=== PATIENT | male | born 1955 | race Caucasian/White ===

== ENCOUNTER 2023-01-09 04:33 | Inpatient (IN) | payer MEDICARE ==
[~2023-01-09] VITALS: Ht 170.2 cm; Wt 56.4 kg
[2023-01-09] VITALS (14 sets, daily range): BP systolic 94–152; BP diastolic 48–91
--- NOTE | 2023-01-09 04:48 | NUR ---
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 ON SCENE SATS 97% ON 3LPM BASELINE FOR HX OF COPD WITH EXPIRITORY WHEEZES BILAT. GIVEN ALBUTEROL TX EN ROUTE WITH POOR PT COMPLIENCE WITH MEDICATION INHALATION. PT AWAKE AND ANSWERING QUESTIONS AT TRIAGE. WHILE BEING TRANSPORTED TO ED ROOM, PT BECAME INCREASINGLY SOMNOLENT WITH DECREASED RESPIRITORY EFFORT. PLACED ON MONITOR AND RT AND MD MADE AWARE.
--- NOTE | 2023-01-09 04:50 | NUR ---
IV MI INSERTED ON LEFT AC G20. BLOOD DRAWN AND SENT TO LAB
--- NOTE | 2023-01-09 04:50 | NUR ---
ATTACHED TO MONITOR. ATTACHED TO BIPAP MACHINE BY PARAMEDICS
--- NOTE | 2023-01-09 04:51 | NUR ---
EKG DONE AT BEDSIDE
--- NOTE | 2023-01-09 04:57 | NUR ---
IV CANNULA #2 INSERTED ON LRIGHT WRIST G20. BLOOD DRAWN AND SENT TO LAB
--- NOTE | 2023-01-09 04:58 | NUR ---
ATTACHED TO BIPAP WITH SETTINGS OF 23/5, RATE 14, SATS OF 80% Addendum: 01/09/23 at 0619 by NEO ATTACHED TO BIPAP WITH SETTINGS OF 23/5, RATE 18, SATS OF 80%
[2023-01-09] MEDS ORDERED: NITROGLYCERIN 0.4 MG/TAB BOTTLE SL ONE (05:00)
[2023-01-09] MEDS ORDERED: FUROSEMIDE 40 MG/4 ML VIAL IV ONE (05:00)
--- NOTE | 2023-01-09 05:01 | NUR ---
RT NOTE LATE ENTRY RT called to bedside. Pt rec'd on CPAP mask @ 15LPM. Pt showed tachypnea, tachycardia, and Shortness of Breath. Pt placed on Bipap on noted settings per MD orders. Alarms are set and audible. ambu bag at bedside. Bipap plugged into red outlet. Addendum: 01/09/23 at 0536 by SARA ENRIQUEZ RT Amended: Links added.
[2023-01-09] MEDS ORDERED: FUROSEMIDE 40 MG/4 ML VIAL ONE (05:03)
[2023-01-09] MEDS ORDERED: NITROGLYCERIN 0.4 MG/TAB BOTTLE ONE (05:03)
[2023-01-09 05:08] LABS: ABG BASE EXCESS -8.7 mmol/L; ABG PCO2 41.6 mmHg (35.0-45.0); ABG PH 7.253 (7.350-7.450); ABG PO2 265.3 mmHg (75.0-100.0); COHb 0.7 % (0.5-1.5); MetHb 0.2 % (0.0-1.5); O2Hb 98.1 % (94.0-97.0); SITE, ABG Right Radial; VENT MODE, BG ST 23/5 R18 80%
--- NOTE | 2023-01-09 05:10 | NUR ---
RT NOTE LATE ENTRY ABG TAKEN AND RESULTS REPORTED TO MD. FIO2 TITRATED TO 50% PER MD ORDERS. Addendum: 01/09/23 at 0536 by SARA ENRIQUEZ RT Amended: Links added.
[2023-01-09] MEDS ORDERED: methylPREDNISolone SOD SUCC 125 MG/2ML VIAL ONE (05:18)
--- NOTE | 2023-01-09 05:18 | NUR ---
IFC F16 INSERTED. URINE SPECIMEN SENT TO LAB
[2023-01-09 05:24] LABS: BASOPHILS # (AUTO) 0.2 K/uL (0.0-0.2); BASOPHILS % (AUTO) 0.9 % (0.0-2.0); EOSINOPHILS % (AUTO) 0.9 % (0.0-6.0); HEMATOCRIT 36 % (39-51); HEMOGLOBIN 10.8 g/dL (13.5-17.5); LYMPHOCYTES # (AUTO) 9.4 K/uL (0.8-4.8); LYMPHOCYTES % (AUTO) 43.2 % (20.0-44.0); MEAN CORPUSCULAR HGB CONC 30 g/dl (31.0-36.0); MEAN CORPUSCULAR VOLUME 92 fL (80-96); MONOCYTES # (AUTO) 1.8 K/uL (0.1-1.30); MONOCYTES % (AUTO) 8.3 % (2.0-12.0); NEUTROPHILS # (AUTO) 10.1 K/uL (1.8-8.9); NEUTROPHILS % (AUTO) 46.7 % (43.0-81.0); PLATELET COUNT (AUTO) 545 K/uL (150-450); RED BLOOD CELL COUNT(AUTO) 3.95 MIL/uL (4.5-6.0); WHITE BLOOD COUNT (AUTO) 21.7 K/uL (4.3-11.0)
--- NOTE | 2023-01-09 05:26 | NUR ---
COVID SWAB DONE AND SENT TO LAB
[2023-01-09] MEDS ORDERED: methylPREDNISolone SOD SUCC 125 MG/2ML VIAL IV ONE (05:30)
[2023-01-09 05:32] LABS: CARBON DIOXIDE 23 mmol/L (21-32); CHLORIDE 101 mmol/L (98-107); CREATININE 6.2 mg/dL (0.6-1.3); GLUCOSE 112 mg/dL (74-106); POTASSIUM 5.6 mmol/L (3.5-5.1); SODIUM SERUM 138 mmol/L (136-145); UREA NITROGEN, BLOOD 41 mg/dL (7-18)
--- NOTE | 2023-01-09 05:32 | NUR ---
RECEIVER BULK SYSTEM AT BEDSIDE
[2023-01-09 05:45] LABS: ALANINE AMINOTRANSFERASE < 6 U/L (12-78); ALBUMIN 3.6 g/dL (3.4-5.0); ALKALINE PHOSPHATASE 61 U/L (46-116); ASPARTATE AMINOTRANSFERASE 14 U/L (15-37); BILIRUBIN,DIRECT 0.2 mg/dL (0.0-0.2); BILIRUBIN,TOTAL 0.7 mg/dL (0.2-1.0); TOTAL PROTEIN, SERUM 8.2 g/dL (6.4-8.2)
[2023-01-09 05:50] LABS: BILIRUBIN,URINE NEGATIVE (NEGATIVE); COLOR,URINE YELLOW (YELLOW); LEUKOCYTE ESTERASE ,URINE NEGATIVE (NEGATIVE); NITRITE, URINE NEGATIVE (NEGATIVE); PH,URINE 8.5 (5.0-8.0); PROTEIN,URINE 2+ mg/dl (NEGATIVE); UGLUCOSE 1+ mg/dL (NEGATIVE); UROBILINOGEN,URINE 0.2 EU/dL (0.2)
--- NOTE | 2023-01-09 05:55 | NUR ---
LACTIC 5.9 MD MADE AWARE
[2023-01-09 05:59] LABS: BACTERIA,URINE Moderate /HPF (None Seen); HYALINE CASTS, URINE Few /LPF (None Seen); SQUAMOUS EPITHELIAL CELL,UR Many /HPF (None Seen)
--- NOTE | 2023-01-09 06:03 | NUR ---
PATIENT PASSED STOOL. PERINEAL CARE DONE. ADULT DIAPER PUT IN PLACE
--- NOTE | 2023-01-09 06:14 | NUR ---
PT'S BROTHER IS UPDATED AND AWARE THAT HE GOING TO BE ADMITTED
[2023-01-09] MEDS ORDERED: IPRATROPIUM NEB FS 0.5 MG/2.5 ML AMPUL.NEB NEB PRN (06:30)
[2023-01-09] MEDS ORDERED: MAGNESIUM HYDROXIDE 30 ML UDC PO PRN (06:30)
[2023-01-09] MEDS ORDERED: MORPHINE SULFATE INJ 2 MG/ML DISP.SYRIN IV PRN (06:30)
[2023-01-09] MEDS ORDERED: ACETAMINOPHEN 325 MG TABLET PO PRN (06:30)
[2023-01-09] MEDS ORDERED: MAG HYDROX/AL HYDROX/SIMETH 30 ML UDC PO PRN (06:30)
[2023-01-09] MEDS ORDERED: Z GUARD REMEDY 4 OZ OINT TP PRN (06:30)
[2023-01-09] MEDS ORDERED: ALBUTEROL FS 2.5 MG/3 ML VIAL.NEB NEB PRN (06:30)
[2023-01-09] MEDS ORDERED: ONDANSETRON HCL/PF 4 MG/2 ML VIAL IVP PRN (06:30)
[2023-01-09] MEDS ORDERED: HYDROCODONE/APAP 5/325MG TABLET PO PRN (06:30)
[2023-01-09 06:50] LABS: ABG BASE EXCESS -3.4 mmol/L; ABG PCO2 34.4 mmHg (35.0-45.0); ABG PO2 119.5 mmHg (75.0-100.0); COHb 0.7 % (0.5-1.5); MetHb 0.1 % (0.0-1.5); O2Hb 96.9 % (94.0-97.0); SITE, ABG Right Brachial; VENT MODE, BG Bipap 23/5 RR18 50%
--- NOTE | 2023-01-09 07:01 | NUR ---
RT SHIFTED PATIENT TO NASAL CANNULA AT 3LPM FOR TRIAL. HR 101BPM, SATS 100%, BP 122/88mmHg. PATIENT DOESN'T SHOW IN DISTRESS.
[2023-01-09] MEDS ORDERED: INSULIN REGULAR, HUMAN 100 UNIT/ML 10 ML VIAL IV ONE (07:30)
[2023-01-09] MEDS ORDERED: DEXTROSE 50%-WATER 50 ML DISP.SYRIN IVP ONE (07:30)
--- NOTE | 2023-01-09 08:00 | NUR ---
RETURN TO CT VIA [facility]
[2023-01-09] MEDS ORDERED: INSULIN REGULAR, HUMAN 100 UNIT/ML 10 ML VIAL ONE (08:06)
[2023-01-09] MEDS ORDERED: MORPHINE SULFATE INJ 4 MG/ML DISP.SYRIN ONE (08:06)
[2023-01-09] MEDS ORDERED: DEXTROSE 50%-WATER 50 ML DISP.SYRIN ONE (08:06)
--- NOTE | 2023-01-09 08:07 | NUR ---
BED 258
[2023-01-09] MEDS: MORPHINE SULFATE INJ 2 MG/ML DISP.SYRIN IV ONE ×2 (08:25→08:28)
--- NOTE | 2023-01-09 08:25 | NUR ---
phleb at bedside for lac acid reflex draw
--- NOTE | 2023-01-09 08:30 | NUR ---
ATTEMPTED TO GIVE REPORT. RN IS "BUSY WITH ANOTHER PT". WAITING FOR CALL BACK.
--- NOTE | 2023-01-09 08:32 | NUR ---
natural gas trader at bedside for ultrasound
--- NOTE | 2023-01-09 08:49 | NUR ---
REPORT GIVEN TO CITLALLI FOR ROSANNE
--- NOTE | 2023-01-09 09:17 | NUR ---
MEDRECON NURSE AT BEDSIDE
--- NOTE | 2023-01-09 09:26 | NUR ---
PATIENT TRANSFERRED TO ICU AWAKE AND STABLE VITALS ON ACLS PROTOCOL. ACCOMPANIED BY RN AND REHAB/PRE VOCATIONAL COUNSELOR.
[2023-01-09] MEDS ORDERED: SEVE800T7 PO (09:28)
[2023-01-09] MEDS ORDERED: OMEP40CA21 PO (09:28)
[2023-01-09] MEDS ORDERED: COLE1TAB2 PO (09:28)
[2023-01-09] MEDS ORDERED: PRED5TAB PO (09:28)
[2023-01-09] MEDS ORDERED: PROP40TA7 PO (09:28)
[2023-01-09] MEDS ORDERED: LEVO25TA82 PO (09:28)
[2023-01-09] MEDS ORDERED: SODI650T PO (09:28)
[2023-01-09] MEDS ORDERED: ALEN70TA80 PO (09:28)
[2023-01-09] MEDS ORDERED: SIRO1TAB6 PO (09:28)
[2023-01-09] MEDS ORDERED: TIOT4MIS5 INH (09:28)
[2023-01-09] MEDS ORDERED: PRAV80TA21 PO (09:28)
[2023-01-09] MEDS ORDERED: GEMF600T90 PO (09:28)
[2023-01-09] MEDS ORDERED: AMLO-213 PO (09:28)
[2023-01-09] MEDS ORDERED: SERT50TA12 PO (09:28)
--- NOTE | 2023-01-09 09:45 | NUR ---
PT ARRIVED IN ICU AT 0929. PT IS ALERT OX4, VERY COOPERATIVE. PT HAD A TIPTON CATHETER BUT COMPLAINED OF BURNING AND ASKED IF IT CAN BE REMOVED. PT STATES HE HAS NO PROBLEM USING A URINAL. TIPTON CATHETER REMOVED AT THIS TIME WITHOUT DIFFICULTY. PT ON 3L NASAL CANNULA. NO SOB NOTED. PT SETTLED IN ROOM, CALL LIGHT GIVEN TO PATIENT, PT PUT ON MONITOR.. PT CHECKED ON HOURLY AND PRN BY NURSING STAFF.
[2023-01-09 10:26] LABS: CALCIUM, SERUM 8.6 mg/dL (8.5-10.1); CREATININE 6.7 mg/dL (0.6-1.3)
[2023-01-09] MEDS: methylPREDNISolone SOD SUCC 40 MG/ML VIAL IV SCH ×2 (12:45→21:21)
[2023-01-09] MEDS: PANTOPRAZOLE 40 MG TABLET.DR PO SCH (12:45)
[2023-01-09] MEDS: HEPARIN SODIUM, PORCINE 5000 UNITS/1 ML VIAL SQ SCH ×2 (12:46→21:23)
--- NOTE | 2023-01-09 13:25 | NUR ---
HE STARTED AT THIS TIME. ANY MEDS DUE FROM NOW TO AFTER HD WILL BE HELD TILL AFTER HD Addendum: 01/09/23 at 1927 by SHLOMO LOPEZ RN CORRECTION HD WAS STARTED AT 1325
[2023-01-09] MEDS: AMLODIPINE BESYLATE 10 MG TABLET PO SCH (17:01)
[2023-01-09] MEDS: SODIUM BICARBONATE 650 MG TABLET PO SCH (17:01)
[2023-01-09] MEDS: GEMFIBROZIL 600 MG TABLET PO SCH (17:01)
[2023-01-09] MEDS: PROPRANOLOL HCL 40 MG TABLET PO SCH (17:02)
[2023-01-09] MEDS ORDERED: COLESTIPOL 1 GM PO SCH (18:30)
[2023-01-09] MEDS ORDERED: SIROLIMUS 1 MG PO SCH (18:30)
--- NOTE | 2023-01-09 19:27 | NUR ---
END OF SHIFT NOTE: PT HAD HD TODAY, 1.5L OFF. HOME MEDS BROUGHT IN BY PT'S BROTHER. PT STATES THAT SINCE THAT PRESCRIPTION WAS ORDERED HIS DOSE CHANGED ON SIROLIMUS AND COLESTOPIL. RN WILL FOLLOW UP IN AM WITH PHARMACY IN [place] FOR CLARIFICATION OF MEDS. PT CHECKED ON HOURLY AND PRN BY NURSING STAFF.
--- NOTE | 2023-01-09 19:45 | NUR ---
RN OPENING NOTE RECEIVED PT IN BED AND IS A/OX4. PT IS ON 02 VIA NC AT 3LPM TOLERATING WELL O2 SAT 98% NO SIGNS OF DISTRESS OR LABORED BREATHING. NO COMPLAINTS OF PAIN AT THIS TIME, IV ACCESS R AC #20G AND RW #20G INTACT AND PATENT NO IVF AT THIS TIME; LFA AV FISTULA. BED IS LOCKED IN LOWEST POSITION X2 BED RAILS UP AND ALL HOSPITAL SAFETY MEASURES ARE IN PLACE. WILL CONTINUE TO MONITOR THROUGHOUT THE SHIFT.
--- NOTE | 2023-01-09 19:48 | NUR ---
RN NOTE NOTIFIED DOCTOR NATHAN ABOUT PT TROPONIN 555, ORDERED COREG 3.125 MG PO BID TO START THIS EVENING AT 2100, ORDER TAKEN AND CARRIED OUT, WILL CONT TO MONITOR.
[2023-01-09] MEDS: CARVEDILOL 3.125 MG TABLET PO SCH (21:22)
[2023-01-09] MEDS ORDERED: ATORVASTATIN 40 MG TABLET PO SCH (22:00)
[2023-01-10] VITALS (16 sets, daily range): BP systolic 103–136; BP diastolic 58–85
[2023-01-10] MEDS: methylPREDNISolone SOD SUCC 40 MG/ML VIAL IV SCH (04:18)
[2023-01-10 05:05] LABS: BASOPHILS % (AUTO) 0.1 % (0.0-2.0); HEMATOCRIT 26 % (39-51); HEMOGLOBIN 8.5 g/dL (13.5-17.5); LYMPHOCYTES # (AUTO) 1.3 K/uL (0.8-4.8); LYMPHOCYTES % (AUTO) 10.2 % (20.0-44.0); MEAN CORPUSCULAR HGB CONC 33 g/dl (31.0-36.0); MEAN CORPUSCULAR VOLUME 83 fL (80-96); MONOCYTES # (AUTO) 0.5 K/uL (0.1-1.30); MONOCYTES % (AUTO) 4.2 % (2.0-12.0); NEUTROPHILS # (AUTO) 10.9 K/uL (1.8-8.9); NEUTROPHILS % (AUTO) 85.5 % (43.0-81.0); PLATELET COUNT (AUTO) 471 K/uL (150-450); RED BLOOD CELL COUNT(AUTO) 3.16 MIL/uL (4.5-6.0); WHITE BLOOD COUNT (AUTO) 12.7 K/uL (4.3-11.0)
[2023-01-10 05:23] LABS: CALCIUM, SERUM 8.4 mg/dL (8.5-10.1); CREATININE 5.6 mg/dL (0.6-1.3); MAGNESIUM 2.1 mg/dL (1.8-2.4); POTASSIUM 4.8 mmol/L (3.5-5.1)
[2023-01-10 05:59] LABS: THYROID STIMULATING HORMONE 0.349 uIU/mL (0.358-3.74)
--- NOTE | 2023-01-10 06:31 | NUR ---
RN CLOSING NOTE PT IN BED SLEEPING BUT EASILY AROUSABLE TO TOUCH AND VOICE, PT IS A/OX4 ABLE TO MAKE NEEDS KNOWN, PT IS ON 02 VIA NC AT 3LPM TOLERATING WELL O2 SAT 98% NO SIGNS OF DISTRESS OR LABORED BREATHING. NO COMPLAINTS OF PAIN AT THIS TIME, IV ACCESS RAC #20G AND RW #20G INTACT AND PATENT NO IVF AT THIS TIME; LFA AV FISTULA. ALL DUE MEDS GIVEN, PT AMBULATES INDEPENDENTLY, REFUSED TO GET CHANGED, PT VERBALIZED WILL DO IT LATER IF NEEDED TO USE THE BS COMMODE. BED IS LOCKED IN LOWEST POSITION, BED RAILS UP X2 AND ALL HOSPITAL SAFETY MEASURES ARE IN PLACE. WILL ENDORSE TO AM SHIFT NURSE FOR CONTINUITY OF CARE.
[2023-01-10] MEDS: LEVOTHYROXINE SODIUM 25 MCG TABLET PO SCH ×2 (07:30→08:57)
--- NOTE | 2023-01-10 07:30 | NUR ---
OPENING NOTE: REPORT RECEIVED FROM FINN KEYS. LABS AND ORDERS REVIEWED DURING REPORT. PT ALERT OX4, WOUND LIKE TO BE DISCHARGED TODAY. WILL CONTINUE TO MONITOR.
[2023-01-10] MEDS: SODIUM BICARBONATE 650 MG TABLET PO SCH (08:55)
[2023-01-10] MEDS: PROPRANOLOL HCL 40 MG TABLET PO SCH (08:56)
[2023-01-10] MEDS: GEMFIBROZIL 600 MG TABLET PO SCH (08:56)
[2023-01-10] MEDS: CARVEDILOL 3.125 MG TABLET PO SCH (08:57)
[2023-01-10] MEDS: PANTOPRAZOLE 40 MG TABLET.DR PO SCH (08:57)
[2023-01-10] MEDS: AMLODIPINE BESYLATE 10 MG TABLET PO SCH (08:58)
[2023-01-10] MEDS: HEPARIN SODIUM, PORCINE 5000 UNITS/1 ML VIAL SQ SCH (08:59)
[2023-01-10] MEDS ORDERED: SERTRALINE HCL 50 MG TABLET PO SCH (09:00)
[2023-01-10] MEDS ORDERED: SEVELAMER CARBONATE 800 MG TABLET PO SCH (09:00)
--- NOTE | 2023-01-10 12:55 | NUR ---
DISCHARGE ORDERS IN PLACE. PT WILL BE DISCHARGED AFTER HD
--- NOTE | 2023-01-10 14:40 | NUR ---
DISCHARGE TEACHING PROVIDED, BELONGINGS LIST SIGNED. IV ACCESS DISCONTINUED, NO BLEEDING NOTED, TIP OF CATHETER INTACT. PT LEFT FACILITY WITH BROTHER IN STABLE CONDITION.
== END 2023-01-10 16:23 | disposition home or self-care (01) | DRG 291 ==
LOC: ER 04:39 → ICU 08:17
PROC: 5A09357 Assistance with Respiratory Ventilation, Less than 24 Consecutive Hours, Continuous Positive Airway Pressure (ICD-10-PCS; principal; 2023-01-09)
PROC: 5A1D70Z Performance of Urinary Filtration, Intermittent, Less than 6 Hours Per Day (ICD-10-PCS; 2023-01-09)
DX: I13.2 Hypertensive heart and chronic kidney disease with heart failure and with stage 5 chronic kidney disease, or end stage renal disease (principal); I50.21 Acute systolic (congestive) heart failure; J96.01 Acute respiratory failure with hypoxia; N18.6 End stage renal disease; Z94.1 Heart transplant status; J44.1 Chronic obstructive pulmonary disease with (acute) exacerbation; E87.20 Acidosis, unspecified; Z99.2 Dependence on renal dialysis; Z20.822 Contact with and (suspected) exposure to COVID-19; K46.9 Unspecified abdominal hernia without obstruction or gangrene; Z95.1 Presence of aortocoronary bypass graft; Z79.51 Long term (current) use of inhaled steroids; Z79.899 Other long term (current) drug therapy; Z79.83 Long term (current) use of bisphosphonates; E78.5 Hyperlipidemia, unspecified; K21.9 Gastro-esophageal reflux disease without esophagitis; D72.829 Elevated white blood cell count, unspecified; T38.0X5A Adverse effect of glucocorticoids and synthetic analogues, initial encounter; Y92.9 Unspecified place or not applicable; E03.9 Hypothyroidism, unspecified; M81.0 Age-related osteoporosis without current pathological fracture; Z87.891 Personal history of nicotine dependence; N28.1 Cyst of kidney, acquired; M89.8X9 Other specified disorders of bone, unspecified site
CPT/HCPCS: 36415; 36600; 71045-TC; 80048-TC; 80061-TC; 80076-TC; 81001; 82962-TC; 83605-TC; 83735-TC; 83880; 84100-TC; 84443-TC; 84484-TC; 85025-TC; 85730-TC; 86706; 87040-TC; 87081-TC; 87086-TC; 87340; 90935-TC; 93307-TC; 94799-TC; C9803; G0378; J1644; J1815; J1940; J2270; J2920; J2930

== ENCOUNTER 2023-01-19 06:34 | Inpatient (IN) | payer MEDICARE ==
[~2023-01-19] VITALS: Ht 165.1 cm; Wt 54.4 kg
[2023-01-19] VITALS (13 sets, daily range): BP systolic 125–149; BP diastolic 71–81
[~2023-01-19 06:34] MED LIST: ALEN70TA80 PO; AMLO-213 PO; COLE1TAB2 PO; GEMF600T90 PO; LEVO25TA82 PO; OMEP40CA21 PO; PRAV80TA21 PO; PRED5TAB PO; PROP40TA7 PO; SERT50TA12 PO; SEVE800T7 PO; SIRO1TAB6 PO; SODI650T PO; TIOT4MIS5 INH
[2023-01-19] MEDS ORDERED: NITROGLYCERIN 0.4 MG/TAB BOTTLE ONE (06:45)
[2023-01-19] MEDS ORDERED: NTG 50 MG/D5W250 ML BOTTL 250 ML IV ONE ×2 (06:57→07:00)
[2023-01-19] MEDS ORDERED: NITROGLYCERIN 0.4 MG/TAB BOTTLE SL ONE (07:00)
[2023-01-19 07:07] LABS: ABG BASE EXCESS -4.8 mmol/L; ABG PCO2 45.8 mmHg (35.0-45.0); ABG PH 7.293 (7.350-7.450); ABG PO2 95.5 mmHg (75.0-100.0); COHb 0.7 % (0.5-1.5); MetHb 0.3 % (0.0-1.5); SITE, ABG Right Radial; VENT MODE, BG st15/5 rr18 40%
[2023-01-19 07:30] LABS: BASOPHILS # (AUTO) 0.1 K/uL (0.0-0.2); BASOPHILS % (AUTO) 0.4 % (0.0-2.0); EOSINOPHILS % (AUTO) 0.6 % (0.0-6.0); HEMATOCRIT 37 % (39-51); HEMOGLOBIN 11.4 g/dL (13.5-17.5); LYMPHOCYTES # (AUTO) 8.2 K/uL (0.8-4.8); MEAN CORPUSCULAR HGB CONC 31 g/dl (31.0-36.0); MEAN CORPUSCULAR VOLUME 85 fL (80-96); MONOCYTES # (AUTO) 1.7 K/uL (0.1-1.30); MONOCYTES % (AUTO) 7.8 % (2.0-12.0); NEUTROPHILS % (AUTO) 54.2 % (43.0-81.0); PLATELET COUNT (AUTO) 648 K/uL (150-450); RED BLOOD CELL COUNT(AUTO) 4.31 MIL/uL (4.5-6.0); WHITE BLOOD COUNT (AUTO) 22.2 K/uL (4.3-11.0)
[2023-01-19] MEDS ORDERED: VANCOMYCIN 1 GM in IV D5W 250 ML IV ONE (08:00)
[2023-01-19] MEDS ORDERED: CEFEPIME 1 GM in IV D5W 50 ML IV ONE (08:00)
[2023-01-19 08:09] LABS: CALCIUM, SERUM 9.7 mg/dL (8.5-10.1); CARBON DIOXIDE 26 mmol/L (21-32); CHLORIDE 98 mmol/L (98-107); GLUCOSE 137 mg/dL (74-106); POTASSIUM 5.5 mmol/L (3.5-5.1); SODIUM SERUM 139 mmol/L (136-145); UREA NITROGEN, BLOOD 60 mg/dL (7-18)
[2023-01-19 08:23] LABS: ALANINE AMINOTRANSFERASE 8 U/L (12-78); ALBUMIN 3.4 g/dL (3.4-5.0); ALKALINE PHOSPHATASE 78 U/L (46-116); ASPARTATE AMINOTRANSFERASE 10 U/L (15-37); BILIRUBIN,DIRECT 0.2 mg/dL (0.0-0.2); BILIRUBIN,TOTAL 0.7 mg/dL (0.2-1.0); TOTAL PROTEIN, SERUM 8.7 g/dL (6.4-8.2)
[2023-01-19 08:25] LABS: CREATININE 8.2 mg/dL (0.6-1.3)
[2023-01-19] MEDS: HEPARIN SODIUM, PORCINE 5000 UNITS/1 ML VIAL SQ SCH ×3 (11:47→17:13)
[2023-01-19] MEDS: methylPREDNISolone SOD SUCC 125 MG/2ML VIAL IV SCH ×2 (11:47→17:12)
[2023-01-19] MEDS: IPRATROPIUM NEB FS 0.5 MG/2.5 ML AMPUL.NEB NEB SCH ×3 (11:50→20:06)
[2023-01-19] MEDS ORDERED: MAG HYDROX/AL HYDROX/SIMETH 30 ML UDC PO PRN (12:00)
[2023-01-19] MEDS ORDERED: Z GUARD REMEDY 4 OZ OINT TP PRN (12:00)
[2023-01-19] MEDS ORDERED: ALENDRONATE 70 MG TABLET PO SCH (12:00)
[2023-01-19] MEDS ORDERED: ONDANSETRON HCL/PF 4 MG/2 ML VIAL IVP PRN (12:00)
[2023-01-19] MEDS ORDERED: ACETAMINOPHEN 325 MG TABLET PO PRN (12:00)
[2023-01-19] MEDS ORDERED: MAGNESIUM HYDROXIDE 30 ML UDC PO PRN (12:00)
[2023-01-19 12:10] LABS: ABG BASE EXCESS 0.3 mmol/L; ABG OXYGEN SATURATION 92.1 % (92.0-98.5); ABG PCO2 36.1 mmHg (35.0-45.0); ABG PH 7.443 (7.350-7.450); ABG PO2 66.5 mmHg (75.0-100.0); AaDO2 126.6 mmHg; COHb 1.2 % (0.5-1.5); MetHb 0.3 % (0.0-1.5); O2Hb 90.7 % (94.0-97.0); SITE, ABG Right Brachial; VENT MODE, BG nasal cannula
[2023-01-19] MEDS ORDERED: COLESTIPOL HCL PO SCH (13:00)
[2023-01-19] MEDS: CEFEPIME 1 GM in IV D5W 50 ML IV SCH (16:58)
[2023-01-19] MEDS ORDERED: GEMFIBROZIL 600 MG TABLET PO SCH (17:00)
[2023-01-19] MEDS ORDERED: VANCOMYCIN 500 MG in IV D5W 100 ML IV PRN (17:00)
[2023-01-19] MEDS: PROPRANOLOL HCL 40 MG TABLET PO SCH (17:12)
[2023-01-19] MEDS: SERTRALINE HCL 50 MG TABLET PO SCH (17:12)
[2023-01-19] MEDS: SIROLIMUS 1 MG PO SCH (17:12)
[2023-01-19] MEDS: SODIUM BICARBONATE 650 MG TABLET PO SCH (17:13)
[2023-01-19] MEDS: IV NS 0.9% 250 ML IV PRN (17:23)
[2023-01-19] MEDS ORDERED: CEFEPIME 2 GM in IV D5W 100 ML IV SCH (21:00)
[2023-01-20] VITALS (15 sets, daily range): BP systolic 115–143; BP diastolic 50–86
[2023-01-20] MEDS: IPRATROPIUM NEB FS 0.5 MG/2.5 ML AMPUL.NEB NEB SCH ×3 (02:14→13:30)
[2023-01-20 03:49] LABS: BASOPHILS % (AUTO) 0.1 % (0.0-2.0); HEMATOCRIT 26 % (39-51); HEMOGLOBIN 8.4 g/dL (13.5-17.5); LYMPHOCYTES % (AUTO) 8.8 % (20.0-44.0); MEAN CORPUSCULAR HGB CONC 32 g/dl (31.0-36.0); MEAN CORPUSCULAR VOLUME 82 fL (80-96); MONOCYTES # (AUTO) 0.2 K/uL (0.1-1.30); MONOCYTES % (AUTO) 1.5 % (2.0-12.0); NEUTROPHILS % (AUTO) 89.6 % (43.0-81.0); PLATELET COUNT (AUTO) 491 K/uL (150-450); RED BLOOD CELL COUNT(AUTO) 3.18 MIL/uL (4.5-6.0); WHITE BLOOD COUNT (AUTO) 11.1 K/uL (4.3-11.0)
[2023-01-20 03:51] LABS: ALBUMIN 2.8 g/dL (3.4-5.0); BILIRUBIN,TOTAL 0.6 mg/dL (0.2-1.0); CALCIUM, SERUM 8.9 mg/dL (8.5-10.1); CREATININE 5.4 mg/dL (0.6-1.3); PHOSPHORUS 4.5 mg/dL (2.5-4.9); POTASSIUM 4.4 mmol/L (3.5-5.1)
[2023-01-20 04:05] LABS: THYROID STIMULATING HORMONE 0.379 uIU/mL (0.358-3.74)
[2023-01-20 05:56] LABS: ABG OXYGEN SATURATION 90.2 % (92.0-98.5); ABG PCO2 32.6 mmHg (35.0-45.0); ABG PH 7.471 (7.350-7.450); ABG PO2 59.1 mmHg (75.0-100.0); COHb 0.3 % (0.5-1.5); MetHb 0.3 % (0.0-1.5); O2Hb 89.7 % (94.0-97.0); SITE, ABG Right Radial
[2023-01-20] MEDS ORDERED: LEVOTHYROXINE SODIUM 25 MCG TABLET PO SCH (07:30)
[2023-01-20] MEDS: SERTRALINE HCL 50 MG TABLET PO SCH (08:33)
[2023-01-20] MEDS: PANTOPRAZOLE 40 MG/PACK PACK PO SCH ×2 (08:34→08:41)
[2023-01-20] MEDS: PROPRANOLOL HCL 40 MG TABLET PO SCH ×2 (08:34→16:40)
[2023-01-20] MEDS: SODIUM BICARBONATE 650 MG TABLET PO SCH ×2 (08:34→16:40)
[2023-01-20] MEDS: methylPREDNISolone SOD SUCC 125 MG/2ML VIAL IV SCH (08:40)
[2023-01-20] MEDS: HEPARIN SODIUM, PORCINE 5000 UNITS/1 ML VIAL SQ SCH ×2 (08:41→16:44)
[2023-01-20] MEDS ORDERED: ATORVASTATIN 10 MG TABLET PO SCH (09:00)
[2023-01-20] MEDS ORDERED: AMLODIPINE BESYLATE 10 MG TABLET PO SCH (09:00)
[2023-01-20] MEDS ORDERED: Medication Not On Formulary EA (Omeprazole 1 CAP) PO SCH (09:00)
[2023-01-20] MEDS ORDERED: predniSONE 5 MG TABLET PO SCH (09:00)
[2023-01-20] MEDS ORDERED: SEVELAMER CARBONATE 800 MG TABLET PO SCH (09:00)
[2023-01-20] MEDS ORDERED: Medication Not On Formulary EA (Tiotropium Bromide (Spiriva Respimat) 2 PUFF) INH SCH (09:00)
[2023-01-20] MEDS: SIROLIMUS 1 MG PO SCH (09:22)
[2023-01-20] MEDS ORDERED: methylPREDNISolone SOD SUCC 125 MG/2ML VIAL IV SCH (11:00)
[2023-01-20] MEDS ORDERED: VANCOMYCIN 500 MG in IV D5W 100ml IV ONE (12:00)
[2023-01-20] MEDS: IV NS 0.9% 250 ML IV PRN (12:16)
[2023-01-20] MEDS: CEFEPIME 1 GM in IV D5W 50 ML IV SCH (15:14)
[2023-01-20] MEDS ORDERED: hydrALAZINE HCL 25 MG TABLET PO SCH (17:30)
[2023-01-20] MEDS ORDERED: CARVEDILOL 3.125 MG TABLET PO SCH (17:30)
== END 2023-01-20 21:54 | disposition left against medical advice (07) | DRG 314 ==
LOC: ER 06:35 → ICU 09:41 → TELE1 01-20 10:45
PROVIDERS: ADMIT Internal Medicine; ATTEND Internal Medicine
PROC: 5A09357 Assistance with Respiratory Ventilation, Less than 24 Consecutive Hours, Continuous Positive Airway Pressure (ICD-10-PCS; principal; 2023-01-19)
PROC: 5A1D70Z Performance of Urinary Filtration, Intermittent, Less than 6 Hours Per Day (ICD-10-PCS; 2023-01-19)
DX: T86.21 Heart transplant rejection (principal); I50.23 Acute on chronic systolic (congestive) heart failure; J96.01 Acute respiratory failure with hypoxia; J96.02 Acute respiratory failure with hypercapnia; N18.6 End stage renal disease; N17.0 Acute kidney failure with tubular necrosis; I13.2 Hypertensive heart and chronic kidney disease with heart failure and with stage 5 chronic kidney disease, or end stage renal disease; I42.9 Cardiomyopathy, unspecified; T86.22 Heart transplant failure; Z20.822 Contact with and (suspected) exposure to COVID-19; K43.9 Ventral hernia without obstruction or gangrene; Z99.2 Dependence on renal dialysis; M89.8X9 Other specified disorders of bone, unspecified site; J44.9 Chronic obstructive pulmonary disease, unspecified; Z79.51 Long term (current) use of inhaled steroids; Z79.899 Other long term (current) drug therapy; F43.9 Reaction to severe stress, unspecified; T38.0X5A Adverse effect of glucocorticoids and synthetic analogues, initial encounter; Y92.009 Unspecified place in unspecified non-institutional (private) residence as the place of occurrence of the external cause; E87.5 Hyperkalemia; D63.8 Anemia in other chronic diseases classified elsewhere; E03.9 Hypothyroidism, unspecified; E78.5 Hyperlipidemia, unspecified; M81.0 Age-related osteoporosis without current pathological fracture; Z87.891 Personal history of nicotine dependence; Z92.25 Personal history of immunosuppression therapy; Y83.0 Surgical operation with transplant of whole organ as the cause of abnormal reaction of the patient, or of later complication, without mention of misadventure at the time of the procedure
CPT/HCPCS: 36415; 36600; 71045-TC; 80048-TC; 80053-TC; 80061-TC; 80076-TC; 80202-TC; 82803-TC; 83605-TC; 83735-TC; 83880; 84100-TC; 84443-TC; 84484-TC; 85025-TC; 86706; 87040-TC; 87081-TC; 90935-TC; 94799-TC; A4223; G0378; J0692; J1644; J2930; J3370; J3490; J7030; J7050; J7060; J7512

== ENCOUNTER 2023-08-26 17:19 | Inpatient (IN) | payer MEDICARE ==
[~2023-08-26] VITALS: Ht 170.2 cm; Wt 54.9 kg
[~2023-08-26 17:19] MED LIST changes: -ALEN70TA80 PO
[2023-08-26 18:07] LABS: BASOPHILS # (AUTO) 0.1 K/uL (0.0-0.2); BASOPHILS % (AUTO) 0.8 % (0.0-2.0); EOSINOPHILS % (AUTO) 0.1 % (0.0-6.0); LYMPHOCYTES # (AUTO) 1.5 K/uL (0.8-4.8); LYMPHOCYTES % (AUTO) 11.4 % (20.0-44.0); MEAN CORPUSCULAR HEMOGLOBIN 28 PG (26.0-33.0); MEAN CORPUSCULAR HGB CONC 33 g/dl (31.0-36.0); MEAN CORPUSCULAR VOLUME 85 fL (80-96); MONOCYTES # (AUTO) 0.5 K/uL (0.1-1.30); MONOCYTES % (AUTO) 4.2 % (2.0-12.0); NEUTROPHILS # (AUTO) 10.7 K/uL (1.8-8.9); NEUTROPHILS % (AUTO) 83.5 % (43.0-81.0); PLATELET COUNT (AUTO) 402 K/uL (150-450); RED CELL DISTRIBUTION WIDTH 24.8 % (11.5-15.0); WHITE BLOOD COUNT (AUTO) 12.8 K/uL (4.3-11.0)
[2023-08-26 18:14] LABS: CARBON DIOXIDE 30 mmol/L (21-32); CHLORIDE 98 mmol/L (98-107); CREATININE 5.4 mg/dL (0.6-1.3); GLUCOSE 107 mg/dL (74-106); SODIUM SERUM 143 mmol/L (136-145); UREA NITROGEN, BLOOD 70 mg/dL (7-18)
[2023-08-26] MEDS ORDERED: IOHEXOL-350 100 ML VIAL IV ONE (18:43)
[2023-08-26] MEDS ORDERED: IV NS 0.9% 250 ML IV ONE (18:43)
[2023-08-26 19:03] LABS: RED BLOOD CELL COUNT(AUTO) 1.56 MIL/uL (4.5-6.0)
[2023-08-26 19:04] LABS: HEMATOCRIT 13 % (39-51); HEMOGLOBIN 4.4 g/dL (13.5-17.5)
[2023-08-26 19:10] LABS: LYMPHOCYTES % (MANUAL) 15 % (16-48); MONOCYTES % (MANUAL) 3 % (0-11.0); NEUTROPHILS % (MANUAL) 82 (42-76); PLATELET ESTIMATE ADEQUATE
[2023-08-26 19:11] LABS: ANISOCYTOSIS 2+; OVALOCYTES 1+
[2023-08-26] MEDS ORDERED: ALEN70TA80 PO (19:25)
[2023-08-26] MEDS ORDERED: AMLO10TA4 PO (19:25)
[2023-08-26] MEDS ORDERED: CALC-1198 PO (19:25)
[2023-08-26] MEDS ORDERED: GEMF600T90 PO (19:25)
[2023-08-26] MEDS ORDERED: OMEG1CAP40 PO (19:25)
[2023-08-26] MEDS ORDERED: SERT50TA PO (19:25)
[2023-08-26] MEDS ORDERED: PRAV80TA21 PO (19:25)
[2023-08-26] MEDS ORDERED: SODI650T PO (19:25)
[2023-08-26] MEDS ORDERED: SIRO2TAB PO (19:25)
[2023-08-26] MEDS ORDERED: PRED5TAB PO (19:25)
[2023-08-26] MEDS ORDERED: CYAN500011 PO (19:25)
[2023-08-26] MEDS ORDERED: PROP40TA7 PO (19:25)
[2023-08-26 19:51] LABS: INR 1.01 (0.91-1.10); PARTIAL THROMBOPLASTIN TIME 28.7 SEC (24.3-34.3); PROTHROMBIN TIME 10.7 SECS (9.2-11.1)
[2023-08-26] MEDS ORDERED: HOME MED MISCELLANEOUS XX SCH (22:00)
[2023-08-26] MEDS ORDERED: MAGNESIUM HYDROXIDE 30 ML UDC PO PRN (22:00)
[2023-08-26] MEDS ORDERED: ALBUTEROL FS 2.5 MG/3 ML VIAL.NEB NEB PRN (22:00)
[2023-08-26] MEDS ORDERED: ACETAMINOPHEN 325 MG TABLET PO PRN (22:00)
[2023-08-26] MEDS ORDERED: TEMAZEPAM 15 MG CAPSULE PO PRN (22:00)
[2023-08-26] MEDS ORDERED: Z GUARD REMEDY 4 OZ OINT TP PRN (22:00)
[2023-08-26] MEDS ORDERED: HYDROCODONE/APAP 5/325MG TABLET PO PRN (22:00)
[2023-08-26] MEDS ORDERED: ONDANSETRON HCL/PF 4 MG/2 ML VIAL IVP PRN (22:00)
[2023-08-26] MEDS ORDERED: MAG HYDROX/AL HYDROX/SIMETH 30 ML UDC PO PRN (22:00)
[2023-08-26] MEDS: SIROLIMUS 1 MG PO SCH (22:00)
[2023-08-27] VITALS (12 sets, daily range): BP systolic 135–175; BP diastolic 53–84; TEMP 97.6–98.7; O2SAT 94–100
[2023-08-27 02:09] LABS: HEMOGLOBIN 5.4 g/dL (13.5-17.5)
[2023-08-27] MEDS: PANTOPRAZOLE 40 MG VIAL IV SCH ×3 (02:12→21:16)
[2023-08-27] MEDS ORDERED: FUROSEMIDE 40 MG/4 ML VIAL IV ONE (04:00)
[2023-08-27] MEDS: SERTRALINE HCL 50 MG TABLET PO SCH (08:29)
[2023-08-27] MEDS: GEMFIBROZIL 600 MG TABLET PO SCH ×2 (08:29→16:33)
[2023-08-27] MEDS: PROPRANOLOL HCL 40 MG TABLET PO SCH ×2 (08:34→16:34)
[2023-08-27] MEDS: SODIUM BICARBONATE 650 MG TABLET PO SCH ×2 (08:35→16:34)
[2023-08-27] MEDS: predniSONE 5 MG TABLET PO SCH (08:35)
[2023-08-27] MEDS: SIROLIMUS 1 MG PO SCH (09:00)
[2023-08-27 09:02] LABS: BASOPHILS # (AUTO) 0.1 K/uL (0.0-0.2); BASOPHILS % (AUTO) 0.6 % (0.0-2.0); EOSINOPHILS # (AUTO) 0.1 K/uL (0.0-0.7); EOSINOPHILS % (AUTO) 0.4 % (0.0-6.0); HEMATOCRIT 23 % (39-51); HEMOGLOBIN 7.7 g/dL (13.5-17.5); LYMPHOCYTES # (AUTO) 2.3 K/uL (0.8-4.8); LYMPHOCYTES % (AUTO) 14.2 % (20.0-44.0); MEAN CORPUSCULAR HEMOGLOBIN 29 PG (26.0-33.0); MEAN CORPUSCULAR HGB CONC 33 g/dl (31.0-36.0); MEAN CORPUSCULAR VOLUME 88 fL (80-96); MONOCYTES # (AUTO) 1.3 K/uL (0.1-1.30); NEUTROPHILS # (AUTO) 12.6 K/uL (1.8-8.9); NEUTROPHILS % (AUTO) 76.8 % (43.0-81.0); PLATELET COUNT (AUTO) 362 K/uL (150-450); RED BLOOD CELL COUNT(AUTO) 2.63 MIL/uL (4.5-6.0); RED CELL DISTRIBUTION WIDTH 18.2 % (11.5-15.0); WHITE BLOOD COUNT (AUTO) 16.3 K/uL (4.3-11.0)
[2023-08-27 09:22] LABS: CALCIUM, SERUM 8.4 mg/dL (8.5-10.1); CREATININE 6.3 mg/dL (0.6-1.3); MAGNESIUM 2.1 mg/dL (1.8-2.4); PHOSPHORUS 5.5 mg/dL (2.5-4.9); POTASSIUM 4.6 mmol/L (3.5-5.1)
[2023-08-27 10:02] LABS: THYROID STIMULATING HORMONE 1.098 uIU/mL (0.358-3.74)
[2023-08-27 12:51] LABS: HEMOGLOBIN 7.1 g/dL (13.5-17.5)
[2023-08-27 13:40] LABS: IRON, SERUM 83 ug/dl (50-175); TOTAL IRON BINDING CAPACITY 242 ug/dl (250-450)
[2023-08-27] MEDS: AMLODIPINE BESYLATE 10 MG TABLET PO SCH (14:07)
[2023-08-27] MEDS: CYANOCOBALAMIN 500 MCG TABLET PO SCH (14:07)
[2023-08-27 17:28] LABS: APPEARANCE,URINE CLEAR (CLEAR); BILIRUBIN,URINE NEGATIVE (NEGATIVE); BLOOD, URINE 1+ Ery/uL (NEGATIVE); COLOR,URINE YELLOW (YELLOW); KETONES,URINE NEGATIVE (NEGATIVE); LEUKOCYTE ESTERASE ,URINE NEGATIVE (NEGATIVE); NITRITE, URINE NEGATIVE (NEGATIVE); PH,URINE 8.5 (5.0-8.0); PROTEIN,URINE 2+ mg/dl (NEGATIVE); UGLUCOSE TRACE mg/dL (NEGATIVE); UROBILINOGEN,URINE 0.2 EU/dL (0.2)
[2023-08-27 18:05] LABS: ADD URINE CULTURE NO; BACTERIA,URINE None seen /HPF (None Seen); WBC,URINE 0-2 /HPF (0-3)
[2023-08-27 18:06] LABS: MUCUS,URINE Few /LPF (None Seen); SQUAMOUS EPITHELIAL CELL,UR 0-2 /HPF (None Seen)
[2023-08-27 18:35] LABS: HEMOGLOBIN 7.6 g/dL (13.5-17.5)
[2023-08-28] VITALS: BP 125/81; TEMP 98.6; O2SAT 96
[2023-08-28 04:00] VITALS: BP 131/69; TEMP 98.6; O2SAT 99
[2023-08-28 07:15] LABS: BASOPHILS # (AUTO) 0.1 K/uL (0.0-0.2); BASOPHILS % (AUTO) 0.5 % (0.0-2.0); EOSINOPHILS # (AUTO) 0.1 K/uL (0.0-0.7); EOSINOPHILS % (AUTO) 0.9 % (0.0-6.0); HEMATOCRIT 22 % (39-51); HEMOGLOBIN 7.3 g/dL (13.5-17.5); LYMPHOCYTES # (AUTO) 2.4 K/uL (0.8-4.8); MEAN CORPUSCULAR HEMOGLOBIN 30 PG (26.0-33.0); MEAN CORPUSCULAR HGB CONC 34 g/dl (31.0-36.0); MEAN CORPUSCULAR VOLUME 87 fL (80-96); MONOCYTES # (AUTO) 1.4 K/uL (0.1-1.30); MONOCYTES % (AUTO) 9.5 % (2.0-12.0); NEUTROPHILS # (AUTO) 11.2 K/uL (1.8-8.9); NEUTROPHILS % (AUTO) 73.1 % (43.0-81.0); PLATELET COUNT (AUTO) 356 K/uL (150-450); RED BLOOD CELL COUNT(AUTO) 2.47 MIL/uL (4.5-6.0); RED CELL DISTRIBUTION WIDTH 19.2 % (11.5-15.0); WHITE BLOOD COUNT (AUTO) 15.2 K/uL (4.3-11.0)
[2023-08-28 07:36] LABS: ALBUMIN 2.7 g/dL (3.4-5.0); BILIRUBIN,TOTAL 0.7 mg/dL (0.2-1.0); CALCIUM, SERUM 8.1 mg/dL (8.5-10.1); CREATININE 5.3 mg/dL (0.6-1.3); PHOSPHORUS 4.9 mg/dL (2.5-4.9); POTASSIUM 4.1 mmol/L (3.5-5.1); TOTAL PROTEIN, SERUM 6.4 g/dL (6.4-8.2)
[2023-08-28 07:44] LABS: THYROID STIMULATING HORMONE 1.247 uIU/mL (0.358-3.74)
[2023-08-28 08:00] VITALS: BP 128/62; TEMP 98.5; O2SAT 99
[2023-08-28] MEDS: PANTOPRAZOLE 40 MG VIAL IV SCH ×2 (08:39→20:52)
[2023-08-28] MEDS: SIROLIMUS 1 MG PO SCH (08:39)
[2023-08-28] MEDS: GEMFIBROZIL 600 MG TABLET PO SCH ×2 (08:39→16:35)
[2023-08-28] MEDS: PROPRANOLOL HCL 40 MG TABLET PO SCH ×2 (08:40→16:35)
[2023-08-28] MEDS: SERTRALINE HCL 50 MG TABLET PO SCH (08:40)
[2023-08-28] MEDS: CYANOCOBALAMIN 500 MCG TABLET PO SCH (08:40)
[2023-08-28] MEDS: AMLODIPINE BESYLATE 10 MG TABLET PO SCH (08:40)
[2023-08-28] MEDS: CALCIUM CARB 600MG /VIT D 1 EACH TABLET PO SCH (08:40)
[2023-08-28] MEDS: SODIUM BICARBONATE 650 MG TABLET PO SCH ×2 (08:40→16:35)
[2023-08-28] MEDS: ATORVASTATIN 10 MG TABLET PO SCH (08:41)
[2023-08-28] MEDS: predniSONE 5 MG TABLET PO SCH (08:42)
[2023-08-28 12:00] VITALS: BP 125/67; TEMP 98.1; O2SAT 99
[2023-08-28 16:00] VITALS: BP 128/62; TEMP 98.5; O2SAT 99
[2023-08-28 16:24] LABS: OCCULT BLOOD STOOL POSITIVE (NEGATIVE)
[2023-08-28 20:00] VITALS: BP 121/57; TEMP 98.1; O2SAT 99
[2023-08-29] VITALS (9 sets, daily range): BP systolic 122–139; BP diastolic 53–63; TEMP 97.7–99.1; O2SAT 95–100
[2023-08-29 06:27] LABS: BASOPHILS # (AUTO) 0.1 K/uL (0.0-0.2); BASOPHILS % (AUTO) 0.4 % (0.0-2.0); EOSINOPHILS # (AUTO) 0.1 K/uL (0.0-0.7); EOSINOPHILS % (AUTO) 0.8 % (0.0-6.0); LYMPHOCYTES # (AUTO) 2.5 K/uL (0.8-4.8); LYMPHOCYTES % (AUTO) 17.4 % (20.0-44.0); MEAN CORPUSCULAR HEMOGLOBIN 30 PG (26.0-33.0); MEAN CORPUSCULAR HGB CONC 34 g/dl (31.0-36.0); MEAN CORPUSCULAR VOLUME 88 fL (80-96); MONOCYTES # (AUTO) 1.5 K/uL (0.1-1.30); MONOCYTES % (AUTO) 10.5 % (2.0-12.0); NEUTROPHILS # (AUTO) 10.1 K/uL (1.8-8.9); NEUTROPHILS % (AUTO) 70.9 % (43.0-81.0); PLATELET COUNT (AUTO) 315 K/uL (150-450); RED CELL DISTRIBUTION WIDTH 19.5 % (11.5-15.0); WHITE BLOOD COUNT (AUTO) 14.3 K/uL (4.3-11.0)
[2023-08-29 06:31] LABS: HEMOGLOBIN 6.5 g/dL (13.5-17.5)
[2023-08-29 06:32] LABS: HEMATOCRIT 19 % (39-51)
[2023-08-29 06:53] LABS: CALCIUM, SERUM 8.2 mg/dL (8.5-10.1); CREATININE 6.7 mg/dL (0.6-1.3); POTASSIUM 4.4 mmol/L (3.5-5.1)
[2023-08-29] MEDS ORDERED: ALENDRONATE 70 MG TABLET PO SCH (07:30)
[2023-08-29 07:37] LABS: ANISOCYTOSIS 1+; LYMPHOCYTES % (MANUAL) 23 % (16-48); MONOCYTES % (MANUAL) 5 % (0-11.0); NEUTROPHILS % (MANUAL) 72 (42-76); PLATELET ESTIMATE ADEQUATE
[2023-08-29] MEDS: CYANOCOBALAMIN 500 MCG TABLET PO SCH (09:56)
[2023-08-29] MEDS: PANTOPRAZOLE 40 MG VIAL IV SCH ×2 (09:56→21:20)
[2023-08-29] MEDS: PROPRANOLOL HCL 40 MG TABLET PO SCH ×2 (09:57→16:41)
[2023-08-29] MEDS: ATORVASTATIN 10 MG TABLET PO SCH (09:57)
[2023-08-29] MEDS: GEMFIBROZIL 600 MG TABLET PO SCH ×2 (09:57→16:40)
[2023-08-29] MEDS: CALCIUM CARB 600MG /VIT D 1 EACH TABLET PO SCH (09:58)
[2023-08-29] MEDS: SERTRALINE HCL 50 MG TABLET PO SCH (09:58)
[2023-08-29] MEDS: AMLODIPINE BESYLATE 10 MG TABLET PO SCH (09:58)
[2023-08-29] MEDS: SODIUM BICARBONATE 650 MG TABLET PO SCH ×2 (09:59→16:41)
[2023-08-29] MEDS: predniSONE 5 MG TABLET PO SCH (10:04)
[2023-08-29] MEDS: SIROLIMUS 1 MG PO SCH (10:48)
[2023-08-30] VITALS: BP 123/58; TEMP 99.3; O2SAT 99
[2023-08-30 04:00] VITALS: BP 125/59; TEMP 99.3; O2SAT 99
[2023-08-30 05:44] LABS: BASOPHILS # (AUTO) 0.1 K/uL (0.0-0.2); BASOPHILS % (AUTO) 0.8 % (0.0-2.0); EOSINOPHILS # (AUTO) 0.1 K/uL (0.0-0.7); EOSINOPHILS % (AUTO) 0.8 % (0.0-6.0); HEMATOCRIT 24 % (39-51); HEMOGLOBIN 7.9 g/dL (13.5-17.5); MEAN CORPUSCULAR HEMOGLOBIN 30 PG (26.0-33.0); MEAN CORPUSCULAR HGB CONC 33 g/dl (31.0-36.0); MEAN CORPUSCULAR VOLUME 90 fL (80-96); MONOCYTES # (AUTO) 0.7 K/uL (0.1-1.30); MONOCYTES % (AUTO) 5.9 % (2.0-12.0); NEUTROPHILS # (AUTO) 10.6 K/uL (1.8-8.9); NEUTROPHILS % (AUTO) 84.5 % (43.0-81.0); PLATELET COUNT (AUTO) 303 K/uL (150-450); RED BLOOD CELL COUNT(AUTO) 2.64 MIL/uL (4.5-6.0); WHITE BLOOD COUNT (AUTO) 12.6 K/uL (4.3-11.0)
[2023-08-30 06:06] LABS: IMMUNOGLOBULIN A, SERUM 233 mg/dL (61-437); IMMUNOGLOBULIN G, SERUM 745 mg/dL (603-1613)
[2023-08-30 06:26] LABS: CALCIUM, SERUM 8.5 mg/dL (8.5-10.1); CREATININE 5.3 mg/dL (0.6-1.3); POTASSIUM 3.9 mmol/L (3.5-5.1)
[2023-08-30 07:07] LABS: FOLIC ACID 3.7 ng/mL (>3.0)
[2023-08-30 07:30] LABS: ANISOCYTOSIS 1+; EOSINOPHILS % (MANUAL) 2 % (0-4); LYMPHOCYTES % (MANUAL) 12 % (16-48); MONOCYTES % (MANUAL) 4 % (0-11.0); MYELOCYTES % 1 % (0-0); NEUTROPHILS % (MANUAL) 81 (42-76); PLATELET ESTIMATE ADEQUATE
[2023-08-30 08:00] VITALS: BP 121/55; TEMP 97.9; O2SAT 93
[2023-08-30 08:06] LABS: FREE KAPPA LT CHAINS SERUM 126.8 mg/L (3.3-19.4); FREE LAMBDA LT CHAIN SERUM 91.2 mg/L (5.7-26.3); KAPPA/LAMBDA RATIO SERUM 1.39 (0.26-1.65)
[2023-08-30] MEDS: PANTOPRAZOLE 40 MG VIAL IV SCH ×2 (09:04→21:06)
[2023-08-30] MEDS: ATORVASTATIN 10 MG TABLET PO SCH (09:04)
[2023-08-30] MEDS: AMLODIPINE BESYLATE 10 MG TABLET PO SCH (09:04)
[2023-08-30] MEDS: SODIUM BICARBONATE 650 MG TABLET PO SCH ×2 (09:04→16:41)
[2023-08-30] MEDS: CALCIUM CARB 600MG /VIT D 1 EACH TABLET PO SCH (09:04)
[2023-08-30] MEDS: CYANOCOBALAMIN 500 MCG TABLET PO SCH (09:05)
[2023-08-30] MEDS: GEMFIBROZIL 600 MG TABLET PO SCH ×2 (09:05→16:41)
[2023-08-30] MEDS: PROPRANOLOL HCL 40 MG TABLET PO SCH ×2 (09:05→16:41)
[2023-08-30] MEDS: SERTRALINE HCL 50 MG TABLET PO SCH (09:05)
[2023-08-30] MEDS: predniSONE 5 MG TABLET PO SCH (09:06)
[2023-08-30] MEDS: SIROLIMUS 1 MG PO SCH (09:06)
[2023-08-30 12:00] VITALS: BP 107/57; TEMP 97.9; O2SAT 99
[2023-08-30 14:07] LABS: *SPE A/G RATIO 0.9 (0.7-1.7); *SPE ALBUMIN 2.6 g/dL (2.9-4.4); *SPE ALPHA-1-GLOBULIN 0.3 g/dL (0.0-0.4); *SPE ALPHA-2-GLOBULIN 0.5 g/dL (0.4-1.0); *SPE BETA GLOBULIN 0.9 g/dL (0.7-1.3); *SPE GLOBULIN, TOTAL 2.8 g/dL (2.2-3.9); *SPE M-SPIKE Not Observed g/dL (Not Observed); *SPE PROTEIN TOTAL 5.4 g/dL (6.0-8.5); *SPEGAMMA GLOBULIN 1.1 g/dL (0.4-1.8)
[2023-08-30 16:00] VITALS: BP 136/81; TEMP 98.6; O2SAT 98
[2023-08-30] MEDS ORDERED: GUAIFENESIN/CODEINE 10 ML UDC PO PRN (16:00)
[2023-08-30] MEDS ORDERED: POLYVINYL ALCOHOL 15 ML BOTTLE EACHEYE PRN (18:00)
[2023-08-30 18:06] LABS: IMMUNOGLOBULIN M, SERUM 41 mg/dL (20-172)
[2023-08-30 20:00] VITALS: BP 116/56; TEMP 98.4; O2SAT 100
[2023-08-31] VITALS (8 sets, daily range): BP systolic 108–137; BP diastolic 52–58; TEMP 97.5–98.2; O2SAT 91–99
[2023-08-31 06:45] LABS: BASOPHILS # (AUTO) 0.1 K/uL (0.0-0.2); BASOPHILS % (AUTO) 0.6 % (0.0-2.0); EOSINOPHILS # (AUTO) 0.2 K/uL (0.0-0.7); EOSINOPHILS % (AUTO) 1.5 % (0.0-6.0); HEMATOCRIT 22 % (39-51); HEMOGLOBIN 7.3 g/dL (13.5-17.5); LYMPHOCYTES # (AUTO) 1.8 K/uL (0.8-4.8); LYMPHOCYTES % (AUTO) 17.5 % (20.0-44.0); MEAN CORPUSCULAR HEMOGLOBIN 31 PG (26.0-33.0); MEAN CORPUSCULAR HGB CONC 34 g/dl (31.0-36.0); MEAN CORPUSCULAR VOLUME 90 fL (80-96); MONOCYTES # (AUTO) 1.6 K/uL (0.1-1.30); NEUTROPHILS # (AUTO) 6.9 K/uL (1.8-8.9); NEUTROPHILS % (AUTO) 65.4 % (43.0-81.0); PLATELET COUNT (AUTO) 301 K/uL (150-450); RED CELL DISTRIBUTION WIDTH 17.3 % (11.5-15.0); WHITE BLOOD COUNT (AUTO) 10.5 K/uL (4.3-11.0)
[2023-08-31 07:12] LABS: ALBUMIN 2.6 g/dL (3.4-5.0); BILIRUBIN,TOTAL 0.5 mg/dL (0.2-1.0); CALCIUM, SERUM 8.4 mg/dL (8.5-10.1); POTASSIUM 4.6 mmol/L (3.5-5.1); TOTAL PROTEIN, SERUM 6.1 g/dL (6.4-8.2)
[2023-08-31 07:14] LABS: CREATININE 7.5 mg/dL (0.6-1.3)
[2023-08-31 07:17] LABS: PHOSPHORUS 9.7 mg/dL (2.5-4.9)
[2023-08-31 08:46] LABS: EOSINOPHILS % (MANUAL) 1 % (0-4); LYMPHOCYTES % (MANUAL) 16 % (16-48); MONOCYTES % (MANUAL) 11 % (0-11.0); NEUTROPHILS % (MANUAL) 72 (42-76); PLATELET ESTIMATE ADEQUATE
[2023-08-31] MEDS: AMLODIPINE BESYLATE 10 MG TABLET PO SCH (09:00)
[2023-08-31] MEDS: PROPRANOLOL HCL 40 MG TABLET PO SCH ×2 (09:00→16:21)
[2023-08-31] MEDS: CYANOCOBALAMIN 500 MCG TABLET PO SCH (09:31)
[2023-08-31] MEDS: SODIUM BICARBONATE 650 MG TABLET PO SCH ×2 (09:31→16:23)
[2023-08-31] MEDS: GEMFIBROZIL 600 MG TABLET PO SCH ×2 (09:31→16:23)
[2023-08-31] MEDS: CALCIUM CARB 600MG /VIT D 1 EACH TABLET PO SCH (09:31)
[2023-08-31] MEDS: SERTRALINE HCL 50 MG TABLET PO SCH (09:31)
[2023-08-31] MEDS: PANTOPRAZOLE 40 MG TABLET.DR PO SCH ×2 (09:31→21:30)
[2023-08-31] MEDS: ATORVASTATIN 10 MG TABLET PO SCH (09:31)
[2023-08-31] MEDS: SIROLIMUS 1 MG PO SCH (09:32)
[2023-08-31] MEDS: predniSONE 5 MG TABLET PO SCH (09:34)
[2023-08-31 12:07] LABS: HEPATITIS B SURFACE AB Reactive (.)
[2023-08-31] MEDS: PROSOURCE / PROSTAT (PYXIS) 30 ML UDC PO SCH (16:21)
[2023-08-31] MEDS: CIPROFLOXACIN HCL 500 MG TABLET PO SCH (18:44)
[2023-08-31] MEDS: IPRATROPIUM NEB FS 0.5 MG/2.5 ML AMPUL.NEB NEB SCH (20:10)
[2023-08-31] MEDS: ALBUTEROL FS 2.5 MG/3 ML VIAL.NEB NEB SCH (20:10)
[2023-09-01] VITALS (24 sets, daily range): BP systolic 98–132; BP diastolic 45–88; TEMP 97–98.4; O2SAT 94–100
[2023-09-01] MEDS: IPRATROPIUM NEB FS 0.5 MG/2.5 ML AMPUL.NEB NEB SCH ×4 (01:14→20:39)
[2023-09-01] MEDS: ALBUTEROL FS 2.5 MG/3 ML VIAL.NEB NEB SCH ×4 (01:14→20:39)
[2023-09-01 06:41] LABS: CALCIUM, SERUM 9.5 mg/dL (8.5-10.1); CREATININE 5.2 mg/dL (0.6-1.3); MAGNESIUM 2.1 mg/dL (1.8-2.4); PHOSPHORUS 5.9 mg/dL (2.5-4.9); POTASSIUM 4.1 mmol/L (3.5-5.1)
[2023-09-01 06:48] LABS: BASOPHILS % (AUTO) 0.4 % (0.0-2.0); EOSINOPHILS # (AUTO) 0.1 K/uL (0.0-0.7); EOSINOPHILS % (AUTO) 1.2 % (0.0-6.0); LYMPHOCYTES # (AUTO) 1.5 K/uL (0.8-4.8); LYMPHOCYTES % (AUTO) 16.6 % (20.0-44.0); MEAN CORPUSCULAR HEMOGLOBIN 30 PG (26.0-33.0); MEAN CORPUSCULAR HGB CONC 33 g/dl (31.0-36.0); MEAN CORPUSCULAR VOLUME 90 fL (80-96); MONOCYTES # (AUTO) 1.5 K/uL (0.1-1.30); NEUTROPHILS # (AUTO) 5.9 K/uL (1.8-8.9); NEUTROPHILS % (AUTO) 64.8 % (43.0-81.0); PLATELET COUNT (AUTO) 349 K/uL (150-450); RED CELL DISTRIBUTION WIDTH 17.7 % (11.5-15.0); WHITE BLOOD COUNT (AUTO) 9.1 K/uL (4.3-11.0)
[2023-09-01 07:18] LABS: HEMATOCRIT 20 % (39-51); HEMOGLOBIN 6.5 g/dL (13.5-17.5)
[2023-09-01 08:09] LABS: ANISOCYTOSIS 1+; EOSINOPHILS % (MANUAL) 1 % (0-4); LYMPHOCYTES % (MANUAL) 15 % (16-48); MONOCYTES % (MANUAL) 9 % (0-11.0); NEUTROPHILS % (MANUAL) 75 (42-76); PLATELET ESTIMATE ADEQUATE
[2023-09-01] MEDS: CALCIUM CARB 600MG /VIT D 1 EACH TABLET PO SCH (08:56)
[2023-09-01] MEDS: SIROLIMUS 1 MG PO SCH (08:57)
[2023-09-01] MEDS: GEMFIBROZIL 600 MG TABLET PO SCH ×2 (08:57→17:00)
[2023-09-01] MEDS: predniSONE 5 MG TABLET PO SCH (08:57)
[2023-09-01] MEDS: ATORVASTATIN 10 MG TABLET PO SCH (08:57)
[2023-09-01] MEDS: PANTOPRAZOLE 40 MG TABLET.DR PO SCH ×2 (08:57→20:45)
[2023-09-01] MEDS: SERTRALINE HCL 50 MG TABLET PO SCH (08:57)
[2023-09-01] MEDS: CYANOCOBALAMIN 500 MCG TABLET PO SCH (08:57)
[2023-09-01] MEDS: SODIUM BICARBONATE 650 MG TABLET PO SCH ×2 (08:57→17:00)
[2023-09-01] MEDS: PROPRANOLOL HCL 40 MG TABLET PO SCH ×2 (08:58→17:00)
[2023-09-01] MEDS: AMLODIPINE BESYLATE 10 MG TABLET PO SCH (08:59)
[2023-09-01] MEDS: PROSOURCE / PROSTAT (PYXIS) 30 ML UDC PO SCH ×2 (08:59→17:00)
[2023-09-01] MEDS: CIPROFLOXACIN HCL 500 MG TABLET PO SCH (18:00)
[2023-09-01] MEDS ORDERED: SIMETHICONE SUSP 40 MG/0.6 ML BOTTLE ONE (18:56)
[2023-09-01] MEDS ORDERED: ANESTHESIA TRAY IN PYXIS 1 EA TRAY MC ONE (20:00)
[2023-09-02] VITALS (14 sets, daily range): BP systolic 119–149; BP diastolic 50–90; TEMP 97.3–98.5; O2SAT 97–100
[2023-09-02] MEDS: ALBUTEROL FS 2.5 MG/3 ML VIAL.NEB NEB SCH ×4 (01:57→19:34)
[2023-09-02] MEDS: IPRATROPIUM NEB FS 0.5 MG/2.5 ML AMPUL.NEB NEB SCH ×4 (01:57→19:34)
[2023-09-02 03:07] LABS: HEPATITIS B CORE AB, IgM Negative (Negative); HEPATITIS B CORE AB, TOTAL Negative (Negative); HEPATITIS B SURFACE AB Reactive (.); HEPATITIS Be AG Negative (Negative)
[2023-09-02 06:30] LABS: BASOPHILS # (AUTO) 0.1 K/uL (0.0-0.2); BASOPHILS % (AUTO) 0.6 % (0.0-2.0); EOSINOPHILS # (AUTO) 0.1 K/uL (0.0-0.7); EOSINOPHILS % (AUTO) 1.2 % (0.0-6.0); HEMATOCRIT 22 % (39-51); HEMOGLOBIN 7.3 g/dL (13.5-17.5); LYMPHOCYTES # (AUTO) 1.9 K/uL (0.8-4.8); LYMPHOCYTES % (AUTO) 20.1 % (20.0-44.0); MEAN CORPUSCULAR HEMOGLOBIN 30 PG (26.0-33.0); MEAN CORPUSCULAR HGB CONC 34 g/dl (31.0-36.0); MEAN CORPUSCULAR VOLUME 89 fL (80-96); MONOCYTES # (AUTO) 1.2 K/uL (0.1-1.30); MONOCYTES % (AUTO) 12.7 % (2.0-12.0); NEUTROPHILS % (AUTO) 65.4 % (43.0-81.0); PLATELET COUNT (AUTO) 355 K/uL (150-450); RED BLOOD CELL COUNT(AUTO) 2.43 MIL/uL (4.5-6.0); RED CELL DISTRIBUTION WIDTH 16.6 % (11.5-15.0); WHITE BLOOD COUNT (AUTO) 9.2 K/uL (4.3-11.0)
[2023-09-02 06:57] LABS: ALBUMIN 2.4 g/dL (3.4-5.0); BILIRUBIN,TOTAL 0.5 mg/dL (0.2-1.0); CALCIUM, SERUM 8.5 mg/dL (8.5-10.1); PHOSPHORUS 4.4 mg/dL (2.5-4.9); POTASSIUM 3.4 mmol/L (3.5-5.1); TOTAL PROTEIN, SERUM 5.7 g/dL (6.4-8.2)
[2023-09-02] MEDS: PROSOURCE / PROSTAT (PYXIS) 30 ML UDC PO SCH ×2 (09:22→17:27)
[2023-09-02] MEDS: SIROLIMUS 1 MG PO SCH (09:23)
[2023-09-02] MEDS: PANTOPRAZOLE 40 MG TABLET.DR PO SCH ×2 (09:23→20:55)
[2023-09-02] MEDS: ATORVASTATIN 10 MG TABLET PO SCH (09:23)
[2023-09-02] MEDS: PROPRANOLOL HCL 40 MG TABLET PO SCH ×2 (09:23→17:30)
[2023-09-02] MEDS: CALCIUM CARB 600MG /VIT D 1 EACH TABLET PO SCH (09:23)
[2023-09-02] MEDS: CYANOCOBALAMIN 500 MCG TABLET PO SCH (09:24)
[2023-09-02] MEDS: GEMFIBROZIL 600 MG TABLET PO SCH ×2 (09:24→17:30)
[2023-09-02] MEDS: AMLODIPINE BESYLATE 10 MG TABLET PO SCH (09:24)
[2023-09-02] MEDS: SERTRALINE HCL 50 MG TABLET PO SCH (09:25)
[2023-09-02] MEDS: SODIUM BICARBONATE 650 MG TABLET PO SCH ×2 (09:25→17:30)
[2023-09-02] MEDS: predniSONE 5 MG TABLET PO SCH (09:27)
[2023-09-02] MEDS: CIPROFLOXACIN HCL 500 MG TABLET PO SCH (17:31)
[2023-09-03] VITALS (11 sets, daily range): BP systolic 125–141; BP diastolic 53–63; TEMP 97.7–97.9; O2SAT 96–100
[2023-09-03] MEDS: IPRATROPIUM NEB FS 0.5 MG/2.5 ML AMPUL.NEB NEB SCH ×4 (02:17→20:12)
[2023-09-03] MEDS: ALBUTEROL FS 2.5 MG/3 ML VIAL.NEB NEB SCH ×4 (02:17→20:12)
[2023-09-03 06:44] LABS: BASOPHILS # (AUTO) 0.1 K/uL (0.0-0.2); BASOPHILS % (AUTO) 0.5 % (0.0-2.0); EOSINOPHILS # (AUTO) 0.1 K/uL (0.0-0.7); EOSINOPHILS % (AUTO) 1.1 % (0.0-6.0); HEMATOCRIT 22 % (39-51); HEMOGLOBIN 7.4 g/dL (13.5-17.5); LYMPHOCYTES % (AUTO) 17.8 % (20.0-44.0); MEAN CORPUSCULAR HEMOGLOBIN 29 PG (26.0-33.0); MEAN CORPUSCULAR HGB CONC 33 g/dl (31.0-36.0); MEAN CORPUSCULAR VOLUME 89 fL (80-96); MONOCYTES # (AUTO) 1.3 K/uL (0.1-1.30); MONOCYTES % (AUTO) 11.6 % (2.0-12.0); NEUTROPHILS # (AUTO) 7.9 K/uL (1.8-8.9); PLATELET COUNT (AUTO) 429 K/uL (150-450); RED BLOOD CELL COUNT(AUTO) 2.52 MIL/uL (4.5-6.0); RED CELL DISTRIBUTION WIDTH 16.4 % (11.5-15.0); WHITE BLOOD COUNT (AUTO) 11.4 K/uL (4.3-11.0)
[2023-09-03 07:17] LABS: CALCIUM, SERUM 7.6 mg/dL (8.5-10.1); CREATININE 5.6 mg/dL (0.6-1.3); MAGNESIUM 1.8 mg/dL (1.8-2.4); PHOSPHORUS 7.6 mg/dL (2.5-4.9); POTASSIUM 4.2 mmol/L (3.5-5.1)
[2023-09-03] MEDS: PROSOURCE / PROSTAT (PYXIS) 30 ML UDC PO SCH ×3 (08:45→17:00)
[2023-09-03] MEDS: SIROLIMUS 1 MG PO SCH (08:45)
[2023-09-03] MEDS: CYANOCOBALAMIN 500 MCG TABLET PO SCH (08:45)
[2023-09-03] MEDS: predniSONE 5 MG TABLET PO SCH (08:45)
[2023-09-03] MEDS: SODIUM BICARBONATE 650 MG TABLET PO SCH ×2 (08:47→16:52)
[2023-09-03] MEDS: AMLODIPINE BESYLATE 10 MG TABLET PO SCH (08:48)
[2023-09-03] MEDS: PROPRANOLOL HCL 40 MG TABLET PO SCH ×2 (08:48→16:52)
[2023-09-03] MEDS: PANTOPRAZOLE 40 MG TABLET.DR PO SCH ×2 (08:48→20:05)
[2023-09-03] MEDS: GEMFIBROZIL 600 MG TABLET PO SCH ×2 (08:48→16:52)
[2023-09-03] MEDS: SERTRALINE HCL 50 MG TABLET PO SCH (08:48)
[2023-09-03] MEDS: ATORVASTATIN 10 MG TABLET PO SCH (08:48)
[2023-09-03] MEDS: CALCIUM CARB 600MG /VIT D 1 EACH TABLET PO SCH (08:48)
[2023-09-03] MEDS ORDERED: CIPR-262 PO (10:41)
[2023-09-03] MEDS ORDERED: PANT40TA49 PO (10:41)
[2023-09-03] MEDS: CIPROFLOXACIN HCL 500 MG TABLET PO SCH (17:09)
== END 2023-09-03 21:47 | disposition home health service (06) | DRG 377 ==
LOC: ER 17:35 → TELE1 21:44
PROVIDERS: ADMIT Nurse Practitioner Acute Care; ATTEND Student in an Organized Health Care Education/Training Program
PROC: 30233N1 Transfusion of Nonautologous Red Blood Cells into Peripheral Vein, Percutaneous Approach (ICD-10-PCS; principal; 2023-08-26)
PROC: 5A1D70Z Performance of Urinary Filtration, Intermittent, Less than 6 Hours Per Day (ICD-10-PCS; 2023-08-27)
PROC: 0W3P8ZZ Control Bleeding in Gastrointestinal Tract, Via Natural or Artificial Opening Endoscopic (ICD-10-PCS; 2023-09-01)
DX: K26.4 Chronic or unspecified duodenal ulcer with hemorrhage (principal); I50.23 Acute on chronic systolic (congestive) heart failure; N18.6 End stage renal disease; I13.2 Hypertensive heart and chronic kidney disease with heart failure and with stage 5 chronic kidney disease, or end stage renal disease; E44.0 Moderate protein-calorie malnutrition; Z94.1 Heart transplant status; R64 Cachexia; Z68.1 Body mass index [BMI] 19.9 or less, adult; N39.0 Urinary tract infection, site not specified; D62 Acute posthemorrhagic anemia; D64.9 Anemia, unspecified; E11.22 Type 2 diabetes mellitus with diabetic chronic kidney disease; K29.70 Gastritis, unspecified, without bleeding; Z99.2 Dependence on renal dialysis; Z79.60 Long term (current) use of unspecified immunomodulators and immunosuppressants; J44.9 Chronic obstructive pulmonary disease, unspecified; K46.9 Unspecified abdominal hernia without obstruction or gangrene; Z79.83 Long term (current) use of bisphosphonates; Z79.899 Other long term (current) drug therapy; E78.5 Hyperlipidemia, unspecified; F17.210 Nicotine dependence, cigarettes, uncomplicated; F32.A Depression, unspecified; K21.9 Gastro-esophageal reflux disease without esophagitis; M81.0 Age-related osteoporosis without current pathological fracture; E03.9 Hypothyroidism, unspecified; D72.821 Monocytosis (symptomatic); D72.829 Elevated white blood cell count, unspecified; E88.9 Metabolic disorder, unspecified; R91.1 Solitary pulmonary nodule
CPT/HCPCS: 36415; 71045-TC; 80048-TC; 80053-TC; 80061-TC; 81001; 82272-TC; 82607-TC; 82728-TC; 82784; 83540-TC; 83735-TC; 84100-TC; 84155; 84165; 84443-TC; 84484-TC; 85025-TC; 85027-TC; 85730-TC; 86334; 86704; 86705; 86706; 86803; 86850-TC; 87040-TC; 87086-TC; 87340; 87350; 90935-TC; 93307-TC; 94799-TC; 97112-TC; 97116-TC; 97530-TC; A6253; C9113; G0378; J1940; J2405; J2704; J3490; J7030; J7050; J7512; P9016; Q9967

== ENCOUNTER 2023-09-18 08:04 | Emergency (ER) | payer MEDICARE ==
[~2023-09-18] VITALS: Ht 167.6 cm; Wt 62.1 kg
[~2023-09-18 08:04] MED LIST changes: +ALEN70TA80 PO; -AMLO-213 PO; +AMLO10TA4 PO; +CALC-1198 PO; +CIPR-262 PO; -COLE1TAB2 PO; +CYAN500011 PO; -LEVO25TA82 PO; +OMEG1CAP40 PO; -OMEP40CA21 PO; +PANT40TA49 PO; +SERT50TA PO; -SERT50TA12 PO; -SEVE800T7 PO; -SIRO1TAB6 PO; +SIRO2TAB PO; -TIOT4MIS5 INH
[2023-09-18 09:04] LABS: BASOPHILS % (AUTO) 0.4 % (0.0-2.0); EOSINOPHILS # (AUTO) 0.1 K/uL (0.0-0.7); HEMATOCRIT 24 % (39-51); HEMOGLOBIN 7.7 g/dL (13.5-17.5); LYMPHOCYTES # (AUTO) 1.9 K/uL (0.8-4.8); LYMPHOCYTES % (AUTO) 16.1 % (20.0-44.0); MEAN CORPUSCULAR HEMOGLOBIN 29 PG (26.0-33.0); MEAN CORPUSCULAR HGB CONC 32 g/dl (31.0-36.0); MEAN CORPUSCULAR VOLUME 88 fL (80-96); MONOCYTES # (AUTO) 1.1 K/uL (0.1-1.30); MONOCYTES % (AUTO) 8.8 % (2.0-12.0); NEUTROPHILS # (AUTO) 8.9 K/uL (1.8-8.9); NEUTROPHILS % (AUTO) 73.7 % (43.0-81.0); PLATELET COUNT (AUTO) 466 K/uL (150-450); RED BLOOD CELL COUNT(AUTO) 2.68 MIL/uL (4.5-6.0); RED CELL DISTRIBUTION WIDTH 17.9 % (11.5-15.0); WHITE BLOOD COUNT (AUTO) 12.1 K/uL (4.3-11.0)
[2023-09-18 09:21] LABS: CALCIUM, SERUM 8.6 mg/dL (8.5-10.1); CARBON DIOXIDE 31 mmol/L (21-32); CHLORIDE 99 mmol/L (98-107); CREATININE 5.4 mg/dL (0.6-1.3); GLUCOSE 79 mg/dL (74-106); SODIUM SERUM 138 mmol/L (136-145); UREA NITROGEN, BLOOD 31 mg/dL (7-18)
[2023-09-18 09:25] LABS: MAGNESIUM 1.7 mg/dL (1.8-2.4); PHOSPHORUS 4.5 mg/dL (2.5-4.9)
[2023-09-18 09:36] LABS: NT-PRO BNP > 25000 pg/mL (0-125)
[2023-09-18 12:27] VITALS: BP 154/100; TEMP 98; O2SAT 97
== END 2023-09-18 12:20 | disposition home or self-care (01) ==
LOC: ER 08:04
DX: I13.2 Hypertensive heart and chronic kidney disease with heart failure and with stage 5 chronic kidney disease, or end stage renal disease (principal); E11.22 Type 2 diabetes mellitus with diabetic chronic kidney disease; N18.6 End stage renal disease; I50.9 Heart failure, unspecified; D64.9 Anemia, unspecified; Z99.2 Dependence on renal dialysis; Z94.1 Heart transplant status; Z79.899 Other long term (current) drug therapy
CPT/HCPCS: 36415; 71045-TC; 80048-TC; 83735-TC; 83880; 84100-TC; 84484-TC; 85025-TC

== ENCOUNTER 2024-01-27 09:05 | Inpatient (IN) | payer MEDICARE ==
[~2024-01-27] VITALS: Ht 152.4 cm; Wt 60.8 kg
[2024-01-27] MEDS ORDERED: oxyCODONE/APAP (5/325 MG) 1 UDTAB TABLET ONE (09:26)
[2024-01-27] MEDS: oxyCODONE/APAP (5/325 MG) 1 UDTAB TABLET PO ONE (09:42)
[2024-01-27 09:46] LABS: BASOPHILS # (AUTO) 0.1 K/uL (0.0-0.2); BASOPHILS % (AUTO) 0.5 % (0.0-2.0); EOSINOPHILS # (AUTO) 0.1 K/uL (0.0-0.7); EOSINOPHILS % (AUTO) 1.4 % (0.0-6.0); HEMATOCRIT 31 % (39-51); HEMOGLOBIN 10.2 g/dL (13.5-17.5); LYMPHOCYTES # (AUTO) 1.5 K/uL (0.8-4.8); MEAN CORPUSCULAR HEMOGLOBIN 27 PG (26.0-33.0); MEAN CORPUSCULAR HGB CONC 34 g/dl (31.0-36.0); MEAN CORPUSCULAR VOLUME 80 fL (80-96); MONOCYTES # (AUTO) 1.4 K/uL (0.1-1.30); MONOCYTES % (AUTO) 13.1 % (2.0-12.0); NEUTROPHILS # (AUTO) 7.4 K/uL (1.8-8.9); PLATELET COUNT (AUTO) 506 K/uL (150-450); RED BLOOD CELL COUNT(AUTO) 3.81 MIL/uL (4.5-6.0); RED CELL DISTRIBUTION WIDTH 20.3 % (11.5-15.0); WHITE BLOOD COUNT (AUTO) 10.5 K/uL (4.3-11.0)
[2024-01-27 09:54] LABS: CALCIUM, SERUM 9.2 mg/dL (8.5-10.1); POTASSIUM 5.6 mmol/L (3.5-5.1)
[2024-01-27 09:59] LABS: INR 1.03 (0.91-1.10); PARTIAL THROMBOPLASTIN TIME 32.2 SEC (24.3-34.3); PROTHROMBIN TIME 10.9 SECS (9.2-11.1)
[2024-01-27 10:00] LABS: ALBUMIN 3.1 g/dL (3.4-5.0); BILIRUBIN,DIRECT 0.1 mg/dL (0.0-0.2); BILIRUBIN,TOTAL 0.8 mg/dL (0.2-1.0); TOTAL PROTEIN, SERUM 7.4 g/dL (6.4-8.2)
[2024-01-27 10:02] LABS: CREATININE 10.1 mg/dL (0.6-1.3)
[2024-01-27] MEDS ORDERED: SODIUM POLYSTYRENE SULFONATE 15 G/60 ML BOTTLE ONE (11:05)
[2024-01-27] MEDS: SODIUM POLYSTYRENE SULFONATE 15 G/60 ML BOTTLE PO ONE (11:30)
[2024-01-27] MEDS ORDERED: ALENDRONATE 70 MG TABLET PO SCH (13:00)
[2024-01-27] MEDS ORDERED: MAGNESIUM HYDROXIDE 30 ML UDC PO PRN (13:00)
[2024-01-27] MEDS ORDERED: MAG HYDROX/AL HYDROX/SIMETH 30 ML UDC PO PRN (13:00)
[2024-01-27] MEDS ORDERED: Z GUARD REMEDY 4 OZ OINT TP PRN (13:00)
[2024-01-27] MEDS ORDERED: ONDANSETRON HCL/PF 4 MG/2 ML VIAL IVP PRN (13:00)
[2024-01-27] MEDS ORDERED: ACETAMINOPHEN 325 MG TABLET PO PRN (13:00)
[2024-01-27 14:00] VITALS: BP 128/67; TEMP 97.5; O2SAT 96
[2024-01-27 16:00] VITALS: BP 134/66; TEMP 98.2; O2SAT 95
[2024-01-27] MEDS ORDERED: PROPRANOLOL HCL 40 MG TABLET PO SCH (17:00)
[2024-01-27] MEDS: PROPRANOLOL HCL 40 MG TABLET PO SCH (17:00)
[2024-01-27] MEDS ORDERED: Medication Not On Formulary EA (Omega-3 Fatty Acids/Fish Oil (Omega 3 1,000 Mg Softgel) PO SCH (17:00)
[2024-01-27] MEDS ORDERED: GEMFIBROZIL 600 MG TABLET PO SCH (17:00)
[2024-01-27 17:02] LABS: CALCIUM, SERUM 8.7 mg/dL (8.5-10.1); POTASSIUM 5.2 mmol/L (3.5-5.1)
[2024-01-27 17:03] LABS: CREATININE 10.6 mg/dL (0.6-1.3)
[2024-01-27] MEDS: GEMFIBROZIL 600 MG TABLET PO SCH (18:05)
[2024-01-27] MEDS ORDERED: TIOT4MIS2 IH (19:19)
[2024-01-27] MEDS ORDERED: CYAN250010 PO (19:19)
[2024-01-27] MEDS ORDERED: SEVE0.8P3 PO (19:19)
[2024-01-27] MEDS ORDERED: OMEP40CA21 PO (19:19)
[2024-01-27 20:00] VITALS: BP_SYST 127; BP_SYST 156; BP_DIAS 62; BP_DIAS 70; TEMP 208.8; TEMP 98.2; O2SAT 96
[2024-01-27] MEDS ORDERED: PANTOPRAZOLE 40 MG TABLET.DR PO SCH (21:00)
[2024-01-27] MEDS: ATORVASTATIN 10 MG TABLET PO SCH (21:12)
[2024-01-27] MEDS: PANTOPRAZOLE 40 MG TABLET.DR PO SCH (21:12)
[2024-01-27 22:00] VITALS: BP 127/62; TEMP 208.8; O2SAT 96
[2024-01-28] VITALS: BP 162/81; TEMP 98.7; O2SAT 96
[2024-01-28] MEDS: HYDROMORPHONE INJ 2 MG/ML DISP.SYRIN IV PRN (00:40)
[2024-01-28 04:00] VITALS: BP 149/79; TEMP 98; O2SAT 98
[2024-01-28 07:21] LABS: BASOPHILS % (AUTO) 0.3 % (0.0-2.0); EOSINOPHILS # (AUTO) 0.1 K/uL (0.0-0.7); EOSINOPHILS % (AUTO) 1.1 % (0.0-6.0); HEMATOCRIT 28 % (39-51); HEMOGLOBIN 9.7 g/dL (13.5-17.5); LYMPHOCYTES # (AUTO) 1.6 K/uL (0.8-4.8); LYMPHOCYTES % (AUTO) 15.5 % (20.0-44.0); MEAN CORPUSCULAR HEMOGLOBIN 27 PG (26.0-33.0); MEAN CORPUSCULAR HGB CONC 34 g/dl (31.0-36.0); MEAN CORPUSCULAR VOLUME 80 fL (80-96); MONOCYTES # (AUTO) 1.4 K/uL (0.1-1.30); MONOCYTES % (AUTO) 14.3 % (2.0-12.0); NEUTROPHILS # (AUTO) 6.9 K/uL (1.8-8.9); NEUTROPHILS % (AUTO) 68.8 % (43.0-81.0); PLATELET COUNT (AUTO) 453 K/uL (150-450); RED BLOOD CELL COUNT(AUTO) 3.55 MIL/uL (4.5-6.0); RED CELL DISTRIBUTION WIDTH 20.3 % (11.5-15.0); WHITE BLOOD COUNT (AUTO) 10.1 K/uL (4.3-11.0)
[2024-01-28 07:50] LABS: CALCIUM, SERUM 8.6 mg/dL (8.5-10.1); CREATININE 6.1 mg/dL (0.6-1.3); MAGNESIUM 1.8 mg/dL (1.8-2.4); PHOSPHORUS 3.4 mg/dL (2.5-4.9)
[2024-01-28 08:00] VITALS: BP 141/79; TEMP 98.1; O2SAT 96
[2024-01-28] MEDS: CALCIUM CARB 600MG /VIT D 1 EACH TABLET PO SCH (08:55)
[2024-01-28] MEDS: SERTRALINE HCL 50 MG TABLET PO SCH (08:55)
[2024-01-28] MEDS: AMLODIPINE BESYLATE 10 MG TABLET PO SCH (08:56)
[2024-01-28] MEDS ORDERED: AMLODIPINE BESYLATE 10 MG TABLET PO SCH (09:00)
[2024-01-28] MEDS ORDERED: SERTRALINE HCL 50 MG TABLET PO SCH (09:00)
[2024-01-28] MEDS ORDERED: predniSONE 5 MG TABLET PO SCH (09:00)
[2024-01-28] MEDS: predniSONE 5 MG TABLET PO SCH (10:05)
[2024-01-28] MEDS: CYANOCOBALAMIN 500 MCG TABLET PO SCH (10:06)
[2024-01-28 12:00] VITALS: BP 139/86; TEMP 98.3; O2SAT 97
[2024-01-28 16:00] VITALS: BP 131/72; TEMP 98.3; O2SAT 99
[2024-01-28 20:00] VITALS: BP 123/64; TEMP 98.2; O2SAT 96
[2024-01-29 07:10] LABS: BASOPHILS % (AUTO) 0.4 % (0.0-2.0); EOSINOPHILS # (AUTO) 0.1 K/uL (0.0-0.7); EOSINOPHILS % (AUTO) 0.5 % (0.0-6.0); HEMATOCRIT 28 % (39-51); HEMOGLOBIN 9.5 g/dL (13.5-17.5); LYMPHOCYTES # (AUTO) 1.2 K/uL (0.8-4.8); LYMPHOCYTES % (AUTO) 11.2 % (20.0-44.0); MEAN CORPUSCULAR HEMOGLOBIN 27 PG (26.0-33.0); MEAN CORPUSCULAR HGB CONC 34 g/dl (31.0-36.0); MEAN CORPUSCULAR VOLUME 79 fL (80-96); MONOCYTES # (AUTO) 1.7 K/uL (0.1-1.30); MONOCYTES % (AUTO) 15.2 % (2.0-12.0); NEUTROPHILS % (AUTO) 72.7 % (43.0-81.0); PLATELET COUNT (AUTO) 429 K/uL (150-450); RED BLOOD CELL COUNT(AUTO) 3.55 MIL/uL (4.5-6.0); RED CELL DISTRIBUTION WIDTH 20.6 % (11.5-15.0)
[2024-01-29 07:43] LABS: CALCIUM, SERUM 8.4 mg/dL (8.5-10.1); POTASSIUM 4.1 mmol/L (3.5-5.1)
[2024-01-29 07:47] LABS: CREATININE 7.8 mg/dL (0.6-1.3)
[2024-01-29 08:00] VITALS: BP 138/60; TEMP 98.3; O2SAT 94
[2024-01-29] MEDS ORDERED: SIROLIMUS 1 MG PO SCH (09:00)
[2024-01-29] MEDS ORDERED: GUAIFENESIN 300 MG/15 ML UDC PO PRN (12:00)
[2024-01-29] MEDS: GUAIFENESIN/D-METHORPHAN HB 5 ML UDC PO PRN (12:09)
[2024-01-29 16:00] VITALS: BP 135/67; TEMP 98.5; O2SAT 95
[2024-01-29] MEDS: AZITHROMYCIN 500 MG in IV D5W 250 ML IV SCH (16:53)
[2024-01-29] MEDS: CEFTRIAXONE 1 G in IV D5W 50 ML IV SCH (16:53)
[2024-01-29 20:00] VITALS: BP 116/75; TEMP 98.5; O2SAT 98
[2024-01-30 04:00] VITALS: BP 114/63; TEMP 98.5; O2SAT 95
[2024-01-30 07:16] LABS: BASOPHILS % (AUTO) 0.3 % (0.0-2.0); EOSINOPHILS % (AUTO) 0.3 % (0.0-6.0); HEMATOCRIT 26 % (39-51); HEMOGLOBIN 8.7 g/dL (13.5-17.5); LYMPHOCYTES # (AUTO) 1.8 K/uL (0.8-4.8); LYMPHOCYTES % (AUTO) 13.2 % (20.0-44.0); MEAN CORPUSCULAR HEMOGLOBIN 27 PG (26.0-33.0); MEAN CORPUSCULAR HGB CONC 34 g/dl (31.0-36.0); MEAN CORPUSCULAR VOLUME 79 fL (80-96); MONOCYTES # (AUTO) 2.2 K/uL (0.1-1.30); MONOCYTES % (AUTO) 16.8 % (2.0-12.0); NEUTROPHILS # (AUTO) 9.2 K/uL (1.8-8.9); NEUTROPHILS % (AUTO) 69.4 % (43.0-81.0); PLATELET COUNT (AUTO) 359 K/uL (150-450); RED BLOOD CELL COUNT(AUTO) 3.26 MIL/uL (4.5-6.0); RED CELL DISTRIBUTION WIDTH 20.4 % (11.5-15.0); WHITE BLOOD COUNT (AUTO) 13.3 K/uL (4.3-11.0)
[2024-01-30 07:48] LABS: POTASSIUM 4.2 mmol/L (3.5-5.1)
[2024-01-30] MEDS: SIROLIMUS 1 MG PO SCH (08:15)
[2024-01-30 08:27] LABS: CREATININE 9.3 mg/dL (0.6-1.3)
[2024-01-30 08:45] VITALS: BP 123/64; TEMP 98.2; O2SAT 96
[2024-01-30] MEDS ORDERED: ALBUTEROL HALF STRENGTH 1.25 MG/3 ML VIAL.NEB NEB PRN (12:00)
[2024-01-30] MEDS: ALENDRONATE 70 MG TABLET PO SCH (13:04)
[2024-01-30 16:22] VITALS: BP 126/72; TEMP 98.3; O2SAT 99
[2024-01-30 20:00] VITALS: BP 115/59; TEMP 98; O2SAT 100
[2024-01-30] MEDS: HYDROCODONE/APAP 10/325MG TABLET PO PRN (21:37)
[2024-01-30] MEDS: ZOLPIDEM TARTRATE 5 MG TABLET PO PRN (21:38)
[2024-01-31 04:00] VITALS: BP 130/67; TEMP 97.5; O2SAT 98
[2024-01-31 07:11] LABS: BASOPHILS % (AUTO) 0.2 % (0.0-2.0); EOSINOPHILS # (AUTO) 0.1 K/uL (0.0-0.7); HEMATOCRIT 26 % (39-51); HEMOGLOBIN 9.2 g/dL (13.5-17.5); LYMPHOCYTES # (AUTO) 1.5 K/uL (0.8-4.8); LYMPHOCYTES % (AUTO) 13.6 % (20.0-44.0); MEAN CORPUSCULAR HEMOGLOBIN 27 PG (26.0-33.0); MEAN CORPUSCULAR HGB CONC 35 g/dl (31.0-36.0); MEAN CORPUSCULAR VOLUME 79 fL (80-96); MONOCYTES # (AUTO) 1.9 K/uL (0.1-1.30); MONOCYTES % (AUTO) 17.4 % (2.0-12.0); NEUTROPHILS # (AUTO) 7.3 K/uL (1.8-8.9); NEUTROPHILS % (AUTO) 67.8 % (43.0-81.0); PLATELET COUNT (AUTO) 398 K/uL (150-450); RED BLOOD CELL COUNT(AUTO) 3.35 MIL/uL (4.5-6.0); RED CELL DISTRIBUTION WIDTH 20.3 % (11.5-15.0); WHITE BLOOD COUNT (AUTO) 10.8 K/uL (4.3-11.0)
[2024-01-31 07:54] LABS: CALCIUM, SERUM 7.7 mg/dL (8.5-10.1); POTASSIUM 4.3 mmol/L (3.5-5.1)
[2024-01-31 07:55] LABS: CREATININE 10.3 mg/dL (0.6-1.3)
[2024-01-31 08:00] VITALS: BP 150/84; TEMP 98.4; O2SAT 99
[2024-01-31 08:28] LABS: ANISOCYTOSIS 1+; BAND % (MANUAL) 2 % (0.0-5.0); BASOPHILS % (MANUAL) 0 % (0.0-2.0); EOSINOPHILS % (MANUAL) 2 % (0-4); LYMPHOCYTES % (MANUAL) 11 % (16-48); MONOCYTES % (MANUAL) 15 % (0-11.0); NEUTROPHILS % (MANUAL) 70 (42-76); OVALOCYTES 1+; PLATELET ESTIMATE ADEQUATE
[2024-01-31 20:00] VITALS: BP 125/71; TEMP 97.9; O2SAT 100
[2024-02-01] MEDS: HALOPERIDOL LACTATE INJ 5 MG/ML VIAL IM ONE (03:13)
[2024-02-01 04:00] VITALS: BP 136/66; TEMP 97.9; O2SAT 98
[2024-02-01 08:00] VITALS: BP 146/70; TEMP 98.1; O2SAT 98
[2024-02-01 09:23] VITALS: BP 146/70
[2024-02-01] MEDS ORDERED: PROP40TA7 PO (09:53)
[2024-02-01] MEDS ORDERED: ACET325T53 PO (09:53)
[2024-02-01] MEDS ORDERED: PANT40TA49 PO (09:53)
[2024-02-01] MEDS ORDERED: AMLO-213 PO (09:53)
[2024-02-01] MEDS ORDERED: GUAI5SYR PO (09:53)
[2024-02-01] MEDS ORDERED: HYDR-3980 PO (09:53)
[2024-02-01] MEDS ORDERED: CYAN500T64 PO (09:53)
[2024-02-01] MEDS ORDERED: CEFT1FRO2 IV (09:53)
[2024-02-01] MEDS ORDERED: AZIT250T13 PO (09:53)
[2024-02-01] MEDS ORDERED: PRED5TAB PO (09:53)
[2024-02-01] MEDS ORDERED: GEMF600T90 PO (09:53)
[2024-02-01] MEDS ORDERED: SERT50TA PO (09:53)
[2024-02-01] MEDS ORDERED: ALEN70TA3 PO (09:53)
== END 2024-02-01 14:37 | DRG 193 ==
LOC: ER 09:08 → MEDSG1 12:48 → TELE1 20:47 → MEDSG1 01-28 14:55
PROVIDERS: ADMIT Nurse Practitioner Acute Care; ATTEND Nurse Practitioner Acute Care
PROC: 5A1D70Z Performance of Urinary Filtration, Intermittent, Less than 6 Hours Per Day (ICD-10-PCS; principal; 2024-01-27)
DX: J15.9 Unspecified bacterial pneumonia (principal); N18.6 End stage renal disease; I13.2 Hypertensive heart and chronic kidney disease with heart failure and with stage 5 chronic kidney disease, or end stage renal disease; E44.1 Mild protein-calorie malnutrition; Z94.1 Heart transplant status; E87.1 Hypo-osmolality and hyponatremia; M25.551 Pain in right hip; W01.0XXA Fall on same level from slipping, tripping and stumbling without subsequent striking against object, initial encounter; Y92.9 Unspecified place or not applicable; E11.22 Type 2 diabetes mellitus with diabetic chronic kidney disease; I50.9 Heart failure, unspecified; Z99.2 Dependence on renal dialysis; K46.9 Unspecified abdominal hernia without obstruction or gangrene; Z79.83 Long term (current) use of bisphosphonates; Z79.899 Other long term (current) drug therapy; E78.5 Hyperlipidemia, unspecified; M81.0 Age-related osteoporosis without current pathological fracture; Z75.1 Person awaiting admission to adequate facility elsewhere; M89.8X9 Other specified disorders of bone, unspecified site; J44.9 Chronic obstructive pulmonary disease, unspecified; F17.200 Nicotine dependence, unspecified, uncomplicated; D63.1 Anemia in chronic kidney disease; E03.9 Hypothyroidism, unspecified; E87.5 Hyperkalemia; E88.09 Other disorders of plasma-protein metabolism, not elsewhere classified
CPT/HCPCS: 36415; 71045-TC; 73200-TC; 80048-TC; 80076-TC; 83735-TC; 84100-TC; 85025-TC; 85730-TC; 86850-TC; 90935-TC; 97110-TC; 97116-TC; 97530-TC; A4223; G0378; J0456; J0696; J1170; J1630; J7030; J7050; J7060; J7512

== ENCOUNTER 2024-08-31 03:55 | Inpatient (IN) | payer MEDICARE ==
[2024-08-31] VITALS (47 sets, daily range): BP systolic 105–148; BP diastolic 55–96; TEMP 97.8–98.2; O2SAT 94–100
[~2024-08-31] VITALS: Ht 165.1 cm; Wt 59.0 kg
[~2024-08-31 03:55] MED LIST changes: +ACET325T53 PO; +ALEN70TA3 PO; +AMLO-213 PO; +AZIT250T13 PO; +CEFT1FRO2 IV; -CIPR-262 PO; +CYAN250010 PO; -CYAN500011 PO; +CYAN500T64 PO; +GUAI5SYR PO; +HYDR-3980 PO; +OMEP40CA21 PO; +SEVE0.8P3 PO; +TIOT4MIS2 IH
[2024-08-31] MEDS ORDERED: FUROSEMIDE 40 MG/4 ML VIAL ONE (04:10)
[2024-08-31 04:18] LABS: BASOPHILS # (AUTO) 0.2 K/uL (0.0-0.2); BASOPHILS % (AUTO) 1.2 % (0.0-2.0); EOSINOPHILS # (AUTO) 0.1 K/uL (0.0-0.7); EOSINOPHILS % (AUTO) 0.9 % (0.0-6.0); HEMATOCRIT 39 % (39-51); HEMOGLOBIN 12.7 g/dL (13.5-17.5); LYMPHOCYTES # (AUTO) 2.6 K/uL (0.8-4.8); LYMPHOCYTES % (AUTO) 19.4 % (20.0-44.0); MEAN CORPUSCULAR HEMOGLOBIN 26 PG (26.0-33.0); MEAN CORPUSCULAR HGB CONC 33 g/dl (31.0-36.0); MEAN CORPUSCULAR VOLUME 80 fL (80-96); MONOCYTES # (AUTO) 1.8 K/uL (0.1-1.30); MONOCYTES % (AUTO) 13.7 % (2.0-12.0); NEUTROPHILS # (AUTO) 8.6 K/uL (1.8-8.9); NEUTROPHILS % (AUTO) 64.8 % (43.0-81.0); PLATELET COUNT (AUTO) 387 K/uL (150-450); RED BLOOD CELL COUNT(AUTO) 4.88 MIL/uL (4.5-6.0); RED CELL DISTRIBUTION WIDTH 19.9 % (11.5-15.0); WHITE BLOOD COUNT (AUTO) 13.3 K/uL (4.3-11.0)
[2024-08-31] MEDS: FUROSEMIDE 40 MG/4 ML VIAL IV ONE (04:18)
[2024-08-31] MEDS ORDERED: ALBUTEROL FS 2.5 MG/3 ML VIAL.NEB ONE (04:22)
[2024-08-31] MEDS: ALBUTEROL FS 2.5 MG/3 ML VIAL.NEB NEB ONE (04:24)
[2024-08-31 04:38] LABS: ALANINE AMINOTRANSFERASE 18 U/L (12-78); ALBUMIN 3.2 g/dL (3.4-5.0); ALKALINE PHOSPHATASE 71 U/L (46-116); ASPARTATE AMINOTRANSFERASE 6 U/L (15-37); CALCIUM, SERUM 9.3 mg/dL (8.5-10.1); CARBON DIOXIDE 22 mmol/L (21-32); CHLORIDE 101 mmol/L (98-107); GLUCOSE 97 mg/dL (74-106); NT-PRO BNP > 25000 pg/mL (0-125); POTASSIUM 5.9 mmol/L (3.5-5.1); SODIUM SERUM 139 mmol/L (136-145); TOTAL PROTEIN, SERUM 8.2 g/dL (6.4-8.2)
[2024-08-31 04:41] LABS: CREATININE 14.6 mg/dL (0.6-1.3); UREA NITROGEN, BLOOD 104 mg/dL (7-18)
[2024-08-31 05:14] LABS: ABG BASE EXCESS -7.6 mmol/L (-2.0-3.0); ABG PCO2 41.8 mmHg (35.0-48.0); ABG PH 7.273 (7.350-7.450); ABG PO2 180.8 mmHg (83.0-108.0); ABG TOTAL HEMOGLOBIN 13.1 G/dL (13.5-17.5); COHb 0.4 % (0.5-1.5); MetHb 0.2 % (0.0-1.5); O2Hb 98.4 % (94.0-97.0)
[2024-08-31] MEDS ORDERED: MAGNESIUM HYDROXIDE 30 ML UDC PO PRN (06:00)
[2024-08-31] MEDS ORDERED: Z GUARD REMEDY 4 OZ OINT TP PRN (06:00)
[2024-08-31] MEDS ORDERED: MAG HYDROX/AL HYDROX/SIMETH 30 ML UDC PO PRN (06:00)
[2024-08-31] MEDS ORDERED: ALBUTEROL FS 2.5 MG/3 ML VIAL.NEB NEB PRN (06:00)
[2024-08-31] MEDS ORDERED: ONDANSETRON HCL/PF 4 MG/2 ML VIAL IVP PRN (06:00)
[2024-08-31] MEDS ORDERED: SODIUM BICARBONATE SYR 50 MEQ/50 ML DISP.SYRIN ONE (06:09)
[2024-08-31] MEDS ORDERED: SODIUM POLYSTYRENE SULFONATE 15 G/60 ML BOTTLE ONE ×2 (06:09→06:46)
[2024-08-31] MEDS ORDERED: INSULIN REGULAR, HUMAN 100 UNIT/ML 10 ML VIAL ONE (06:10)
[2024-08-31] MEDS ORDERED: DEXTROSE 50%-WATER 50 ML DISP.SYRIN ONE (06:10)
[2024-08-31] MEDS ORDERED: CALCIUM CHLORIDE 1,000 MG/10 ML DISP.SYRIN ONE (06:10)
[2024-08-31 06:20] LABS: ABG BASE EXCESS -10.2 mmol/L (-2.0-3.0); ABG OXYGEN SATURATION 99.5 % (94.0-98.0); ABG PCO2 26.2 mmHg (35.0-48.0); ABG PH 7.342 (7.350-7.450); ABG TOTAL HEMOGLOBIN 12.5 G/dL (13.5-17.5); COHb 0.3 % (0.5-1.5); MetHb 0.3 % (0.0-1.5); O2Hb 98.9 % (94.0-97.0)
[2024-08-31] MEDS: SODIUM POLYSTYRENE SULF. PWD 15 GM UDC PO ONE (06:30)
[2024-08-31] MEDS: CALCIUM CHLORIDE 1,000 MG/10 ML DISP.SYRIN IV ONE (06:41)
[2024-08-31] MEDS: SODIUM BICARBONATE SYR 50 MEQ/50 ML DISP.SYRIN IV ONE (06:41)
[2024-08-31] MEDS: DEXTROSE 50%-WATER 50 ML DISP.SYRIN IVP ONE (06:43)
[2024-08-31] MEDS: INSULIN REGULAR, HUMAN 100 UNIT/ML 3 ML VIAL IV ONE (06:49)
[2024-08-31] MEDS ORDERED: SODIUM BICARBONATE SYR 50 MEQ/50 ML DISP.SYRIN IV ONE (07:30)
[2024-08-31] MEDS ORDERED: ACET-868 PO (08:22)
[2024-08-31] MEDS ORDERED: FOLI0.8T2 PO (08:23)
[2024-08-31] MEDS ORDERED: PANT40TA2 PO (08:23)
[2024-08-31] MEDS ORDERED: SEVE800T28 PO (08:23)
[2024-08-31] MEDS ORDERED: TIOT18CA3 IH (08:23)
[2024-08-31] MEDS ORDERED: CYCL5TAB PO (08:23)
[2024-08-31] MEDS ORDERED: [UNRECOGNIZED DRUG - OTHER] IJ (08:23)
[2024-08-31] MEDS ORDERED: CYAN25003 SL (08:23)
[2024-08-31] MEDS ORDERED: PANTOPRAZOLE 40 MG VIAL IV SCH (09:00)
[2024-08-31] MEDS ORDERED: FUROSEMIDE 20 MG/2 ML VIAL IV SCH (09:00)
[2024-08-31] MEDS: SEVELAMER CARBONATE 800 MG TABLET PO SCH (10:00)
[2024-08-31] MEDS: IPRATROPIUM NEB FS 0.5 MG/2.5 ML AMPUL.NEB NEB SCH (13:30)
[2024-08-31] MEDS: PROPRANOLOL HCL 40 MG TABLET PO SCH (15:04)
[2024-08-31] MEDS: SIROLIMUS 1 MG PO SCH (15:04)
[2024-08-31] MEDS: predniSONE 5 MG TABLET PO SCH (15:05)
[2024-08-31] MEDS: PANTOPRAZOLE 40 MG TABLET.DR PO SCH (15:05)
[2024-08-31] MEDS: SERTRALINE HCL 50 MG TABLET PO SCH (15:05)
[2024-08-31] MEDS: AMLODIPINE BESYLATE 10 MG TABLET PO SCH (15:05)
[2024-08-31] MEDS: ATORVASTATIN 10 MG TABLET PO SCH (21:21)
[2024-09-01] VITALS (34 sets, daily range): BP systolic 107–141; BP diastolic 57–85; TEMP 97.9–98.6; O2SAT 90–100
[2024-09-01 05:00] LABS: BASOPHILS % (AUTO) 0.4 % (0.0-2.0); EOSINOPHILS # (AUTO) 0.1 K/uL (0.0-0.7); HEMATOCRIT 32 % (39-51); HEMOGLOBIN 10.6 g/dL (13.5-17.5); LYMPHOCYTES # (AUTO) 1.4 K/uL (0.8-4.8); LYMPHOCYTES % (AUTO) 13.5 % (20.0-44.0); MEAN CORPUSCULAR HEMOGLOBIN 26 PG (26.0-33.0); MEAN CORPUSCULAR HGB CONC 33 g/dl (31.0-36.0); MEAN CORPUSCULAR VOLUME 79 fL (80-96); MONOCYTES # (AUTO) 1.8 K/uL (0.1-1.30); MONOCYTES % (AUTO) 17.7 % (2.0-12.0); NEUTROPHILS # (AUTO) 6.9 K/uL (1.8-8.9); NEUTROPHILS % (AUTO) 67.4 % (43.0-81.0); PLATELET COUNT (AUTO) 317 K/uL (150-450); RED BLOOD CELL COUNT(AUTO) 4.09 MIL/uL (4.5-6.0); WHITE BLOOD COUNT (AUTO) 10.3 K/uL (4.3-11.0)
[2024-09-01 05:15] LABS: HEPATITIS B CORE AB, IgM Negative (Negative); HEPATITIS B CORE AB, TOTAL Negative (Negative); HEPATITIS B SURFACE AB Reactive (.)
[2024-09-01 05:30] LABS: ALANINE AMINOTRANSFERASE 32 U/L (12-78); ALBUMIN 2.7 g/dL (3.4-5.0); ALKALINE PHOSPHATASE 74 U/L (46-116); ASPARTATE AMINOTRANSFERASE < 5 U/L (15-37); BILIRUBIN,TOTAL 0.9 mg/dL (0.2-1.0); CALCIUM, SERUM 8.9 mg/dL (8.5-10.1); CARBON DIOXIDE 29 mmol/L (21-32); CHLORIDE 99 mmol/L (98-107); GLUCOSE 94 mg/dL (74-106); MAGNESIUM 2.1 mg/dL (1.8-2.4); NT-PRO BNP > 25000 pg/mL (0-125); PHOSPHORUS 5.8 mg/dL (2.5-4.9); POTASSIUM 3.6 mmol/L (3.5-5.1); SODIUM SERUM 142 mmol/L (136-145); TOTAL PROTEIN, SERUM 7.2 g/dL (6.4-8.2); UREA NITROGEN, BLOOD 64 mg/dL (7-18)
[2024-09-01 06:01] LABS: LYMPHOCYTES % (MANUAL) 13 % (16-48); MONOCYTES % (MANUAL) 14 % (0-11.0); NEUTROPHILS % (MANUAL) 73 (42-76)
[2024-09-01 06:02] LABS: ANISOCYTOSIS 1+; PLATELET ESTIMATE ADEQUATE
[2024-09-01] MEDS: HEPARIN SODIUM, PORCINE 5000 UNITS/1 ML VIAL SQ SCH (09:13)
[2024-09-01] MEDS: ACETAMINOPHEN 325 MG TABLET PO PRN (14:37)
[2024-09-02] VITALS (30 sets, daily range): BP systolic 119–138; BP diastolic 59–86; TEMP 97.5–98.7; O2SAT 90–99
[2024-09-02 04:42] LABS: BASOPHILS % (AUTO) 0.3 % (0.0-2.0); EOSINOPHILS # (AUTO) 0.1 K/uL (0.0-0.7); EOSINOPHILS % (AUTO) 1.3 % (0.0-6.0); HEMATOCRIT 35 % (39-51); HEMOGLOBIN 11.2 g/dL (13.5-17.5); LYMPHOCYTES # (AUTO) 1.3 K/uL (0.8-4.8); LYMPHOCYTES % (AUTO) 11.7 % (20.0-44.0); MEAN CORPUSCULAR HEMOGLOBIN 25 PG (26.0-33.0); MEAN CORPUSCULAR HGB CONC 32 g/dl (31.0-36.0); MEAN CORPUSCULAR VOLUME 79 fL (80-96); MONOCYTES # (AUTO) 1.8 K/uL (0.1-1.30); NEUTROPHILS # (AUTO) 7.9 K/uL (1.8-8.9); NEUTROPHILS % (AUTO) 70.7 % (43.0-81.0); PLATELET COUNT (AUTO) 370 K/uL (150-450); RED BLOOD CELL COUNT(AUTO) 4.45 MIL/uL (4.5-6.0); RED CELL DISTRIBUTION WIDTH 20.3 % (11.5-15.0); WHITE BLOOD COUNT (AUTO) 11.1 K/uL (4.3-11.0)
[2024-09-02 04:56] LABS: ALANINE AMINOTRANSFERASE 20 U/L (12-78); ALBUMIN 2.6 g/dL (3.4-5.0); ALKALINE PHOSPHATASE 73 U/L (46-116); ASPARTATE AMINOTRANSFERASE < 5 U/L (15-37); BILIRUBIN,TOTAL 0.8 mg/dL (0.2-1.0); CALCIUM, SERUM 8.9 mg/dL (8.5-10.1); CARBON DIOXIDE 27 mmol/L (21-32); CHLORIDE 98 mmol/L (98-107); GLUCOSE 101 mg/dL (74-106); MAGNESIUM 2.2 mg/dL (1.8-2.4); PHOSPHORUS 4.7 mg/dL (2.5-4.9); POTASSIUM 4.1 mmol/L (3.5-5.1); SODIUM SERUM 136 mmol/L (136-145); TOTAL PROTEIN, SERUM 7.6 g/dL (6.4-8.2); UREA NITROGEN, BLOOD 53 mg/dL (7-18)
[2024-09-02 04:58] LABS: CREATININE 7.6 mg/dL (0.6-1.3)
[2024-09-02 05:33] LABS: ANISOCYTOSIS 2+; EOSINOPHILS % (MANUAL) 1 % (0-4); LYMPHOCYTES % (MANUAL) 9 % (16-48); MONOCYTES % (MANUAL) 16 % (0-11.0); NEUTROPHILS % (MANUAL) 74 (42-76); PLATELET ESTIMATE ADEQUATE
[2024-09-03] VITALS (12 sets, daily range): BP systolic 120–137; BP diastolic 68–80; TEMP 97.7–98.2; O2SAT 90–98
[2024-09-03 06:17] LABS: BASOPHILS % (AUTO) 0.4 % (0.0-2.0); EOSINOPHILS # (AUTO) 0.1 K/uL (0.0-0.7); EOSINOPHILS % (AUTO) 1.7 % (0.0-6.0); HEMATOCRIT 34 % (39-51); HEMOGLOBIN 11.2 g/dL (13.5-17.5); LYMPHOCYTES # (AUTO) 1.3 K/uL (0.8-4.8); LYMPHOCYTES % (AUTO) 15.2 % (20.0-44.0); MEAN CORPUSCULAR HEMOGLOBIN 25 PG (26.0-33.0); MEAN CORPUSCULAR HGB CONC 33 g/dl (31.0-36.0); MEAN CORPUSCULAR VOLUME 78 fL (80-96); MONOCYTES # (AUTO) 1.5 K/uL (0.1-1.30); MONOCYTES % (AUTO) 18.2 % (2.0-12.0); NEUTROPHILS # (AUTO) 5.4 K/uL (1.8-8.9); NEUTROPHILS % (AUTO) 64.5 % (43.0-81.0); PLATELET COUNT (AUTO) 383 K/uL (150-450); RED BLOOD CELL COUNT(AUTO) 4.44 MIL/uL (4.5-6.0); RED CELL DISTRIBUTION WIDTH 19.6 % (11.5-15.0); WHITE BLOOD COUNT (AUTO) 8.3 K/uL (4.3-11.0)
[2024-09-03 06:28] LABS: CREATININE 6.2 mg/dL (0.6-1.3); POTASSIUM 3.3 mmol/L (3.5-5.1)
[2024-09-03 09:52] LABS: EOSINOPHILS % (MANUAL) 2 % (0-4); LYMPHOCYTES % (MANUAL) 11 % (16-48); MONOCYTES % (MANUAL) 9 % (0-11.0); NEUTROPHILS % (MANUAL) 78 (42-76); PLATELET ESTIMATE ADEQUATE
[2024-09-03 09:54] LABS: ANISOCYTOSIS 1+
== END 2024-09-03 14:29 | disposition home or self-care (01) | DRG 314 ==
LOC: ER 04:09 → ICU 08:44 → TELE 09-02 16:28
PROVIDERS: ADMIT Nurse Practitioner Family; ATTEND Internal Medicine
PROC: 5A09357 Assistance with Respiratory Ventilation, Less than 24 Consecutive Hours, Continuous Positive Airway Pressure (ICD-10-PCS; principal; 2024-08-31)
PROC: 5A1D70Z Performance of Urinary Filtration, Intermittent, Less than 6 Hours Per Day (ICD-10-PCS; 2024-08-31)
DX: T86.22 Heart transplant failure (principal); I50.23 Acute on chronic systolic (congestive) heart failure; N18.6 End stage renal disease; J96.21 Acute and chronic respiratory failure with hypoxia; I13.2 Hypertensive heart and chronic kidney disease with heart failure and with stage 5 chronic kidney disease, or end stage renal disease; G93.40 Encephalopathy, unspecified; Z99.2 Dependence on renal dialysis; Z91.158 Patient's noncompliance with renal dialysis for other reason; E87.5 Hyperkalemia; K21.9 Gastro-esophageal reflux disease without esophagitis; J44.9 Chronic obstructive pulmonary disease, unspecified; Z99.81 Dependence on supplemental oxygen; Z79.899 Other long term (current) drug therapy; M89.8X9 Other specified disorders of bone, unspecified site; E78.5 Hyperlipidemia, unspecified; Z79.60 Long term (current) use of unspecified immunomodulators and immunosuppressants; M81.0 Age-related osteoporosis without current pathological fracture; D64.9 Anemia, unspecified; E03.9 Hypothyroidism, unspecified; I70.0 Atherosclerosis of aorta
CPT/HCPCS: 36415; 36600; 71045-TC; 80048-TC; 80053-TC; 82803-TC; 83735-TC; 83880; 84100-TC; 84484-TC; 85025-TC; 86704; 86705; 86706; 86803; 87081-TC; 87340; 90935-TC; 93307-TC; 94660; 94762-TC; 94799-TC; 99082-TC; G0378; J1644; J1815; J1940; J3490; J7030; J7512

== ENCOUNTER 2024-09-23 13:37 | Inpatient (IN) | payer MEDICARE ==
[~2024-09-23] VITALS: Ht 165.1 cm; Wt 66.2 kg
[~2024-09-23 13:37] MED LIST changes: +ACET-868 PO; -ACET325T53 PO; -ALEN70TA3 PO; -AMLO-213 PO; -AZIT250T13 PO; -CEFT1FRO2 IV; -CYAN250010 PO; +CYAN25003 SL; -CYAN500T64 PO; +CYCL5TAB PO; +FOLI0.8T2 PO; -GEMF600T90 PO; -GUAI5SYR PO; -HYDR-3980 PO; -OMEP40CA21 PO; +PANT40TA2 PO; -PANT40TA49 PO; -SEVE0.8P3 PO; +SEVE800T28 PO; +TIOT18CA3 IH; -TIOT4MIS2 IH; +[UNRECOGNIZED DRUG - OTHER] IJ
[2024-09-23] MEDS ORDERED: MORPHINE SULFATE INJ 4 MG/ML DISP.SYRIN ONE (14:25)
[2024-09-23] MEDS ORDERED: ONDANSETRON HCL/PF 4 MG/2 ML VIAL ONE (14:25)
[2024-09-23] MEDS ORDERED: BACI/NEOM/POLY B OINT PKT 1 UDPKT PACKET ONE (14:26)
[2024-09-23] MEDS: BACI/NEOM/POLY B OINT PKT 1 UDPKT PACKET TP ONE (14:37)
[2024-09-23] MEDS: ONDANSETRON HCL/PF 4 MG/2 ML VIAL IV ONE (14:37)
[2024-09-23] MEDS: MORPHINE SULFATE INJ 2 MG/ML DISP.SYRIN IV ONE (14:37)
[2024-09-23] MEDS ORDERED: IOHEXOL-300 100 ML VIAL IV ONE (14:42)
[2024-09-23] MEDS ORDERED: CT SWABBABLE VALVE TRANS SET 1 EA INFUS.SET MC ONE (14:43)
[2024-09-23] MEDS ORDERED: IV NS 0.9% 250 ML IV ONE (14:43)
[2024-09-23 14:50] LABS: BASOPHILS # (AUTO) 0.1 K/uL (0.0-0.2); BASOPHILS % (AUTO) 0.6 % (0.0-2.0); EOSINOPHILS # (AUTO) 0.1 K/uL (0.0-0.7); EOSINOPHILS % (AUTO) 1.2 % (0.0-6.0); HEMATOCRIT 34 % (39-51); HEMOGLOBIN 11.1 g/dL (13.5-17.5); LYMPHOCYTES # (AUTO) 1.8 K/uL (0.8-4.8); LYMPHOCYTES % (AUTO) 16.9 % (20.0-44.0); MEAN CORPUSCULAR HEMOGLOBIN 26 PG (26.0-33.0); MEAN CORPUSCULAR HGB CONC 33 g/dl (31.0-36.0); MEAN CORPUSCULAR VOLUME 79 fL (80-96); NEUTROPHILS # (AUTO) 7.7 K/uL (1.8-8.9); NEUTROPHILS % (AUTO) 72.3 % (43.0-81.0); PLATELET COUNT (AUTO) 327 K/uL (150-450); RED BLOOD CELL COUNT(AUTO) 4.28 MIL/uL (4.5-6.0); RED CELL DISTRIBUTION WIDTH 22.4 % (11.5-15.0); WHITE BLOOD COUNT (AUTO) 10.6 K/uL (4.3-11.0)
[2024-09-23 15:05] LABS: ALANINE AMINOTRANSFERASE 11 U/L (12-78); ALBUMIN 3.1 g/dL (3.4-5.0); ALKALINE PHOSPHATASE 56 U/L (46-116); ASPARTATE AMINOTRANSFERASE < 5 U/L (15-37); BILIRUBIN,DIRECT 0.1 mg/dL (0.0-0.2); BILIRUBIN,TOTAL 0.8 mg/dL (0.2-1.0); CALCIUM, SERUM 9.2 mg/dL (8.5-10.1); CARBON DIOXIDE 28 mmol/L (21-32); CHLORIDE 99 mmol/L (98-107); GLUCOSE 104 mg/dL (74-106); POTASSIUM 3.8 mmol/L (3.5-5.1); SODIUM SERUM 138 mmol/L (136-145); TOTAL PROTEIN, SERUM 7.3 g/dL (6.4-8.2); UREA NITROGEN, BLOOD 49 mg/dL (7-18)
[2024-09-23 15:08] LABS: CREATININE 7.8 mg/dL (0.6-1.3)
[2024-09-23 15:31] LABS: INR 1.01 (0.91-1.10); PARTIAL THROMBOPLASTIN TIME 26.6 SEC (24.3-34.3); PROTHROMBIN TIME 10.7 SECS (9.2-11.1)
[2024-09-23] MEDS ORDERED: TDAP [DIPH/PERTUSSIS/TET] 0.5 ML VIAL IM ONE (15:38)
[2024-09-23] MEDS: TDAP [DIPH/PERTUSSIS/TET] 0.5 ML VIAL IM ONE (15:44)
[2024-09-23] MEDS ORDERED: OMEP40CA21 PO (16:59)
[2024-09-23] MEDS ORDERED: AMLO5TAB4 PO (16:59)
[2024-09-23] MEDS ORDERED: LEVO50TA PO (16:59)
[2024-09-23] MEDS ORDERED: GEMF600T90 PO (16:59)
[2024-09-23] MEDS ORDERED: PROP80CA51 PO (16:59)
[2024-09-23] MEDS ORDERED: SODI325T PO (16:59)
[2024-09-23] MEDS ORDERED: FEXO-65 PO (16:59)
[2024-09-23 17:00] VITALS: BP 136/66; TEMP 98.2; O2SAT 92
[2024-09-23] MEDS ORDERED: MAGNESIUM HYDROXIDE 30 ML UDC PO PRN (17:00)
[2024-09-23] MEDS ORDERED: ALPR0.5T PO (17:00)
[2024-09-23] MEDS ORDERED: ONDANSETRON HCL/PF 4 MG/2 ML VIAL IVP PRN (17:00)
[2024-09-23] MEDS ORDERED: Z GUARD REMEDY 4 OZ OINT TP PRN (17:00)
[2024-09-23] MEDS ORDERED: MAG HYDROX/AL HYDROX/SIMETH 30 ML UDC PO PRN (17:00)
[2024-09-23] MEDS ORDERED: ACETAMINOPHEN 325 MG TABLET PO PRN (17:00)
[2024-09-23] MEDS: SEVELAMER CARBONATE 800 MG TABLET PO SCH (17:42)
[2024-09-23] MEDS: PROPRANOLOL HCL 40 MG TABLET PO SCH (17:43)
[2024-09-23] MEDS: SODIUM BICARBONATE 650 MG TABLET PO SCH (17:43)
[2024-09-23] MEDS: PANTOPRAZOLE 40 MG TABLET.DR PO SCH (17:43)
[2024-09-23] MEDS: IPRATROPIUM NEB FS 0.5 MG/2.5 ML AMPUL.NEB NEB SCH (19:30)
[2024-09-23 20:00] VITALS: BP 125/63; TEMP 97.6; O2SAT 96
[2024-09-23] MEDS: HYDROCODONE/APAP 5/325MG TABLET PO PRN (20:59)
[2024-09-23] MEDS: ZOLPIDEM TARTRATE 5 MG TABLET PO PRN (22:41)
[2024-09-24] VITALS (9 sets, daily range): BP systolic 117–146; BP diastolic 61–75; TEMP 97.3–98.1; O2SAT 91–98
[2024-09-24 07:55] LABS: BASOPHILS % (AUTO) 0.3 % (0.0-2.0); EOSINOPHILS # (AUTO) 0.1 K/uL (0.0-0.7); HEMATOCRIT 34 % (39-51); HEMOGLOBIN 11.2 g/dL (13.5-17.5); LYMPHOCYTES # (AUTO) 1.8 K/uL (0.8-4.8); LYMPHOCYTES % (AUTO) 18.2 % (20.0-44.0); MEAN CORPUSCULAR HEMOGLOBIN 26 PG (26.0-33.0); MEAN CORPUSCULAR HGB CONC 33 g/dl (31.0-36.0); MEAN CORPUSCULAR VOLUME 79 fL (80-96); MONOCYTES # (AUTO) 1.1 K/uL (0.1-1.30); MONOCYTES % (AUTO) 10.7 % (2.0-12.0); NEUTROPHILS % (AUTO) 69.8 % (43.0-81.0); PLATELET COUNT (AUTO) 304 K/uL (150-450)
[2024-09-24 08:11] LABS: CALCIUM, SERUM 8.2 mg/dL (8.5-10.1); MAGNESIUM 2.5 mg/dL (1.8-2.4); PHOSPHORUS 3.6 mg/dL (2.5-4.9); POTASSIUM 4.2 mmol/L (3.5-5.1)
[2024-09-24 08:20] LABS: CREATININE 8.9 mg/dL (0.6-1.3)
[2024-09-24] MEDS ORDERED: SIROLIMUS 2 MG PO SCH (09:00)
[2024-09-24] MEDS: AMLODIPINE BESYLATE 10 MG TABLET PO SCH (09:43)
[2024-09-24] MEDS: predniSONE 5 MG TABLET PO SCH (09:44)
[2024-09-24] MEDS: SERTRALINE HCL 50 MG TABLET PO SCH (09:44)
[2024-09-24] MEDS: MORPHINE SULFATE INJ 2 MG/ML DISP.SYRIN IV PRN (20:44)
[2024-09-25] VITALS (11 sets, daily range): BP systolic 121–146; BP diastolic 68–96; TEMP 96.4–98.6; O2SAT 92–100
[2024-09-25] MEDS: SIROLIMUS 1 MG PO SCH (11:57)
[2024-09-26] VITALS (10 sets, daily range): BP systolic 115–144; BP diastolic 58–77; TEMP 97.9–98.2; O2SAT 88–96
== END 2024-09-26 17:10 | disposition home health service (06) | DRG 640 ==
LOC: ER 13:49 → TELE1 16:37 → MEDSG1 16:49 → TELE1 09-24 17:04 → MEDSG1 09-25 17:47
PROVIDERS: ADMIT Internal Medicine; ATTEND Internal Medicine
PROC: 5A1D70Z Performance of Urinary Filtration, Intermittent, Less than 6 Hours Per Day (ICD-10-PCS; principal; 2024-09-24)
DX: E87.70 Fluid overload, unspecified (principal); E43 Unspecified severe protein-calorie malnutrition; J96.01 Acute respiratory failure with hypoxia; N18.6 End stage renal disease; Z94.1 Heart transplant status; D84.821 Immunodeficiency due to drugs; K56.609 Unspecified intestinal obstruction, unspecified as to partial versus complete obstruction; I12.0 Hypertensive chronic kidney disease with stage 5 chronic kidney disease or end stage renal disease; S01.112A Laceration without foreign body of left eyelid and periocular area, initial encounter; W01.0XXA Fall on same level from slipping, tripping and stumbling without subsequent striking against object, initial encounter; M89.8X9 Other specified disorders of bone, unspecified site; Y92.9 Unspecified place or not applicable; J44.9 Chronic obstructive pulmonary disease, unspecified; E11.22 Type 2 diabetes mellitus with diabetic chronic kidney disease; K43.9 Ventral hernia without obstruction or gangrene; Z99.2 Dependence on renal dialysis; Z79.899 Other long term (current) drug therapy; Z79.60 Long term (current) use of unspecified immunomodulators and immunosuppressants; Z79.51 Long term (current) use of inhaled steroids; Z79.83 Long term (current) use of bisphosphonates; E87.1 Hypo-osmolality and hyponatremia; E03.9 Hypothyroidism, unspecified; E88.09 Other disorders of plasma-protein metabolism, not elsewhere classified; D63.1 Anemia in chronic kidney disease; E78.5 Hyperlipidemia, unspecified; F32.9 Major depressive disorder, single episode, unspecified; R26.9 Unspecified abnormalities of gait and mobility; M81.0 Age-related osteoporosis without current pathological fracture; L98.9 Disorder of the skin and subcutaneous tissue, unspecified; J43.9 Emphysema, unspecified
CPT/HCPCS: 36415; 70450-TC; 71260-TC; 72125-TC; 80048-TC; 80076-TC; 83735-TC; 84100-TC; 84484-TC; 85025-TC; 85730-TC; 86850-TC; 90715; 90935-TC; 94760-TC; 94799-TC; 97110-TC; 97530-TC; 97535-TC; G0378; J2270; J2405; J7050; J7512; Q9967

== ENCOUNTER 2024-09-28 11:39 | Inpatient (IN) | payer MEDICARE ==
[2024-09-28] VITALS: BP 137/66; TEMP 98.2; O2SAT 94
[~2024-09-28] VITALS: Ht 190.5 cm; Wt 63.5 kg
[~2024-09-28 11:39] MED LIST changes: -ACET-868 PO; +ALPR0.5T PO; -AMLO10TA4 PO; +AMLO5TAB4 PO; -CYCL5TAB PO; +FEXO-65 PO; -FOLI0.8T2 PO; +GEMF600T90 PO; +LEVO50TA PO; +OMEP40CA21 PO; -PANT40TA2 PO; -PROP40TA7 PO; +PROP80CA51 PO; -SEVE800T28 PO; -SIRO2TAB PO; +SODI325T PO; -SODI650T PO; -[UNRECOGNIZED DRUG - OTHER] IJ
[2024-09-28] MEDS ORDERED: methylPREDNISolone SOD SUCC 125 MG/2ML VIAL ONE (12:27)
[2024-09-28] MEDS: methylPREDNISolone SOD SUCC 125 MG/2ML VIAL IV ONE (12:33)
[2024-09-28] MEDS ORDERED: ALBUTEROL FS 2.5 MG/3 ML VIAL.NEB ONE (12:38)
[2024-09-28] MEDS: ALBUTEROL FS 2.5 MG/3 ML VIAL.NEB NEB ONE (12:49)
[2024-09-28 12:57] LABS: CALCIUM, SERUM 9.4 mg/dL (8.5-10.1); CARBON DIOXIDE 27 mmol/L (21-32); CHLORIDE 91 mmol/L (98-107); GLUCOSE 82 mg/dL (74-106); SODIUM SERUM 134 mmol/L (136-145); UREA NITROGEN, BLOOD 58 mg/dL (7-18)
[2024-09-28 12:58] VITALS: O2SAT 94
[2024-09-28 13:02] LABS: ALANINE AMINOTRANSFERASE 39 U/L (12-78); ALBUMIN 2.9 g/dL (3.4-5.0); ALKALINE PHOSPHATASE 114 U/L (46-116); ASPARTATE AMINOTRANSFERASE 11 U/L (15-37); BILIRUBIN,DIRECT 0.2 mg/dL (0.0-0.2); BILIRUBIN,TOTAL 1.1 mg/dL (0.2-1.0); TOTAL PROTEIN, SERUM 8.3 g/dL (6.4-8.2)
[2024-09-28 13:03] LABS: BASOPHILS # (AUTO) 0.2 K/uL (0.0-0.2); EOSINOPHILS # (AUTO) 0.1 K/uL (0.0-0.7); EOSINOPHILS % (AUTO) 0.4 % (0.0-6.0); HEMATOCRIT 35 % (39-51); HEMOGLOBIN 11.3 g/dL (13.5-17.5); LYMPHOCYTES # (AUTO) 1.6 K/uL (0.8-4.8); LYMPHOCYTES % (AUTO) 9.9 % (20.0-44.0); MEAN CORPUSCULAR HEMOGLOBIN 26 PG (26.0-33.0); MEAN CORPUSCULAR HGB CONC 32 g/dl (31.0-36.0); MEAN CORPUSCULAR VOLUME 80 fL (80-96); MONOCYTES # (AUTO) 1.9 K/uL (0.1-1.30); MONOCYTES % (AUTO) 11.9 % (2.0-12.0); NEUTROPHILS # (AUTO) 12.6 K/uL (1.8-8.9); NEUTROPHILS % (AUTO) 76.8 % (43.0-81.0); PLATELET COUNT (AUTO) 271 K/uL (150-450); RED BLOOD CELL COUNT(AUTO) 4.41 MIL/uL (4.5-6.0); RED CELL DISTRIBUTION WIDTH 22.1 % (11.5-15.0); WHITE BLOOD COUNT (AUTO) 16.3 K/uL (4.3-11.0)
[2024-09-28 13:06] LABS: CREATININE 9.4 mg/dL (0.6-1.3)
[2024-09-28 13:07] LABS: INR 1.03 (0.91-1.10); PARTIAL THROMBOPLASTIN TIME 33.1 SEC (24.3-34.3); PROTHROMBIN TIME 10.9 SECS (9.2-11.1)
[2024-09-28 13:16] LABS: LACTIC ACID 1.2 mmol/L (0.4-2.0)
[2024-09-28] MEDS: CEFEPIME 2 GM in IV D5W 100 ML IV STA (14:15)
[2024-09-28] MEDS: VANCOMYCIN 1 GM in IV D5W 250 ML IV ONE (14:52)
[2024-09-28] MEDS ORDERED: IPRATROPIUM NEB FS 0.5 MG/2.5 ML AMPUL.NEB NEB PRN ×2 (15:30→23:30)
[2024-09-28] MEDS ORDERED: ONDANSETRON HCL/PF 4 MG/2 ML VIAL IVP PRN (15:30)
[2024-09-28] MEDS ORDERED: ALBUTEROL FS 2.5 MG/3 ML VIAL.NEB NEB PRN (15:30)
[2024-09-28] MEDS ORDERED: Z GUARD REMEDY 4 OZ OINT TP PRN (15:30)
[2024-09-28] MEDS ORDERED: ZOLPIDEM TARTRATE 5 MG TABLET PO PRN (15:30)
[2024-09-28] MEDS ORDERED: MAGNESIUM HYDROXIDE 30 ML UDC PO PRN (15:30)
[2024-09-28 16:53] LABS: APPEARANCE,URINE CLEAR (CLEAR); BILIRUBIN,URINE NEGATIVE (NEGATIVE); BLOOD, URINE 1+ Ery/uL (NEGATIVE); COLOR,URINE YELLOW (YELLOW); KETONES,URINE TRACE mg/dL (NEGATIVE); LEUKOCYTE ESTERASE ,URINE NEGATIVE (NEGATIVE); NITRITE, URINE NEGATIVE (NEGATIVE); PH,URINE 8.5 (5.0-8.0); PROTEIN,URINE 2+ mg/dl (NEGATIVE); UGLUCOSE TRACE mg/dL (NEGATIVE); UROBILINOGEN,URINE 0.2 EU/dL (0.2)
[2024-09-28 17:03] LABS: ADD URINE CULTURE NO; BACTERIA,URINE 0 /HPF (None Seen); URINE AMORPHOUS PHOSPHATES Few /HPF (None Seen); WBC,URINE 0-2 /HPF (0-3)
[2024-09-28 20:00] VITALS: BP 122/70; TEMP 98.1; O2SAT 92; O2SAT 95
[2024-09-28] MEDS: LIDOCAINE 5% (PATCH) 1 EA PATCH TP SCH (22:05)
[2024-09-28] MEDS ORDERED: ALENDRONATE 70 MG TABLET PO SCH (23:30)
[2024-09-28] MEDS ORDERED: ALPRAZOLAM 0.5 MG TABLET PO PRN (23:30)
[2024-09-28] MEDS ORDERED: ALBUTEROL FS 2.5 MG/0.5 ML VIAL.NEB NEB PRN (23:30)
[2024-09-28] MEDS ORDERED: cetrizine 10 MG TABLET PO PRN (23:45)
[2024-09-29] VITALS (8 sets, daily range): BP systolic 124–144; BP diastolic 65–81; TEMP 97.5–98.4; O2SAT 91–94
[2024-09-29] MEDS: IPRATROPIUM NEB FS 0.5 MG/2.5 ML AMPUL.NEB NEB ONE (00:35)
[2024-09-29] MEDS: ALBUTEROL FS 2.5 MG/0.5 ML VIAL.NEB NEB ONE (00:36)
[2024-09-29 05:51] LABS: ABG BASE EXCESS -0.7 mmol/L (-2.0-3.0); ABG OXYGEN SATURATION 89.3 % (94.0-98.0); ABG PCO2 31.3 mmHg (35.0-48.0); ABG PO2 56.6 mmHg (83.0-108.0); ABG TOTAL HEMOGLOBIN 11.6 G/dL (13.5-17.5); COHb 0.9 % (0.5-1.5); MetHb 0.3 % (0.0-1.5); O2Hb 88.2 % (94.0-97.0); SITE, ABG RIGHT RADIAL
[2024-09-29 07:43] LABS: BASOPHILS % (AUTO) 0.1 % (0.0-2.0); HEMATOCRIT 36 % (39-51); HEMOGLOBIN 11.8 g/dL (13.5-17.5); LYMPHOCYTES # (AUTO) 0.6 K/uL (0.8-4.8); LYMPHOCYTES % (AUTO) 5.7 % (20.0-44.0); MEAN CORPUSCULAR HEMOGLOBIN 26 PG (26.0-33.0); MEAN CORPUSCULAR HGB CONC 33 g/dl (31.0-36.0); MEAN CORPUSCULAR VOLUME 78 fL (80-96); MONOCYTES # (AUTO) 0.2 K/uL (0.1-1.30); NEUTROPHILS # (AUTO) 9.5 K/uL (1.8-8.9); NEUTROPHILS % (AUTO) 92.2 % (43.0-81.0); PLATELET COUNT (AUTO) 329 K/uL (150-450); RED BLOOD CELL COUNT(AUTO) 4.61 MIL/uL (4.5-6.0); RED CELL DISTRIBUTION WIDTH 22.5 % (11.5-15.0); WHITE BLOOD COUNT (AUTO) 10.3 K/uL (4.3-11.0)
[2024-09-29] MEDS: PANTOPRAZOLE 40 MG TABLET.DR PO SCH (07:46)
[2024-09-29 07:54] LABS: ALANINE AMINOTRANSFERASE 44 U/L (12-78); ALKALINE PHOSPHATASE 127 U/L (46-116); ASPARTATE AMINOTRANSFERASE 8 U/L (15-37); BILIRUBIN,DIRECT 0.2 mg/dL (0.0-0.2); BILIRUBIN,TOTAL 0.9 mg/dL (0.2-1.0); CALCIUM, SERUM 9.5 mg/dL (8.5-10.1); CARBON DIOXIDE 27 mmol/L (21-32); CHLORIDE 89 mmol/L (98-107); GLUCOSE 119 mg/dL (74-106); MAGNESIUM 2.7 mg/dL (1.8-2.4); PHOSPHORUS 6.3 mg/dL (2.5-4.9); POTASSIUM 4.3 mmol/L (3.5-5.1); SODIUM SERUM 132 mmol/L (136-145); UREA NITROGEN, BLOOD 72 mg/dL (7-18)
[2024-09-29 07:55] LABS: CREATININE 10.3 mg/dL (0.6-1.3); NT-PRO BNP > 25000 pg/mL (0-125)
[2024-09-29] MEDS ORDERED: Medication Not On Formulary EA (Omega-3 Fatty Acids/Fish Oil (Omega 3 1,000 Mg Softgel) PO SCH (09:00)
[2024-09-29] MEDS ORDERED: GEMFIBROZIL 600 MG TABLET PO SCH (09:00)
[2024-09-29] MEDS ORDERED: TIOTROPIUM BROMIDE 6 CAP/BOX CAP.W.DEV IH SCH (09:00)
[2024-09-29] MEDS ORDERED: Medication Not On Formulary EA (Propranolol HCl (Inderal LA) 80 MG) PO SCH (09:00)
[2024-09-29] MEDS ORDERED: SODIUM BICARBONATE 325 MG TABLET PO SCH (09:00)
[2024-09-29] MEDS ORDERED: CYANOCOBALAMIN 2500 MCG SL SCH (09:00)
[2024-09-29] MEDS: PANTOPRAZOLE 40 MG VIAL IV SCH (09:06)
[2024-09-29] MEDS: AMLODIPINE BESYLATE 5 MG TABLET PO SCH (09:06)
[2024-09-29] MEDS: LEVOTHYROXINE SODIUM 50 MCG TABLET PO SCH (09:07)
[2024-09-29] MEDS: SERTRALINE HCL 50 MG TABLET PO SCH (09:07)
[2024-09-29] MEDS: predniSONE 5 MG TABLET PO SCH (09:07)
[2024-09-29] MEDS: SODIUM BICARBONATE 650 MG TABLET PO SCH (09:21)
[2024-09-29] MEDS: CYANOCOBALAMIN 500 MCG TABLET PO SCH (09:51)
[2024-09-29] MEDS: PROPRANOLOL HCL 40 MG TABLET PO SCH (09:51)
[2024-09-29] MEDS: GEMFIBROZIL 600 MG TABLET PO SCH (10:00)
[2024-09-29] MEDS: CALCIUM CITRATE(CITRACAL) /VITAMIN D 1 TAB TABLET PO SCH (10:08)
[2024-09-29] MEDS: SIROLIMUS 1 MG PO SCH (12:09)
[2024-09-29] MEDS: CEFEPIME 1 GM in IV D5W 50 ML IV SCH (14:23)
[2024-09-29] MEDS: ATORVASTATIN 10 MG TABLET PO SCH (22:50)
[2024-09-30] VITALS: BP 140/62; TEMP 97.7; O2SAT 96
[2024-09-30 04:00] VITALS: BP 151/81; TEMP 98.4; O2SAT 97
[2024-09-30] MEDS: ACETAMINOPHEN 325 MG TABLET PO PRN (04:44)
[2024-09-30 07:01] LABS: BASOPHILS % (AUTO) 0.1 % (0.0-2.0); EOSINOPHILS % (AUTO) 0.3 % (0.0-6.0); HEMATOCRIT 32 % (39-51); HEMOGLOBIN 10.4 g/dL (13.5-17.5); LYMPHOCYTES # (AUTO) 1.1 K/uL (0.8-4.8); LYMPHOCYTES % (AUTO) 8.3 % (20.0-44.0); MEAN CORPUSCULAR HEMOGLOBIN 25 PG (26.0-33.0); MEAN CORPUSCULAR HGB CONC 33 g/dl (31.0-36.0); MEAN CORPUSCULAR VOLUME 77 fL (80-96); MONOCYTES # (AUTO) 1.5 K/uL (0.1-1.30); MONOCYTES % (AUTO) 10.9 % (2.0-12.0); NEUTROPHILS # (AUTO) 11.1 K/uL (1.8-8.9); NEUTROPHILS % (AUTO) 80.4 % (43.0-81.0); PLATELET COUNT (AUTO) 360 K/uL (150-450); RED BLOOD CELL COUNT(AUTO) 4.16 MIL/uL (4.5-6.0); RED CELL DISTRIBUTION WIDTH 22.2 % (11.5-15.0); WHITE BLOOD COUNT (AUTO) 13.8 K/uL (4.3-11.0)
[2024-09-30 07:14] LABS: CALCIUM, SERUM 9.1 mg/dL (8.5-10.1); CREATININE 7.1 mg/dL (0.6-1.3); POTASSIUM 3.4 mmol/L (3.5-5.1)
[2024-09-30 08:00] VITALS: BP 126/74; TEMP 98.2; O2SAT 92
[2024-09-30] MEDS: POTASSIUM CHLORIDE 10 MEQ TABLET.SA PO ONE (12:02)
[2024-09-30] MEDS: VANCOMYCIN POST DIALYSIS 500MG IV PRN (13:55)
[2024-09-30 14:20] LABS: HIV-1 p24 ANTIGEN NON REACTIVE (NONREACTIVE); HIV-1/2 ANTIBODY NON REACTIVE (NONREACTIVE)
[2024-09-30] MEDS: METHOCARBAMOL (750MG) 750 MG TABLET PO SCH (17:13)
[2024-10-01 04:28] VITALS: BP 166/80; TEMP 97.5; O2SAT 98
[2024-10-01] MEDS: ALENDRONATE 70 MG TABLET PO SCH (05:38)
[2024-10-01 06:55] LABS: BASOPHILS % (AUTO) 0.2 % (0.0-2.0); EOSINOPHILS # (AUTO) 0.1 K/uL (0.0-0.7); HEMATOCRIT 32 % (39-51); HEMOGLOBIN 10.6 g/dL (13.5-17.5); LYMPHOCYTES # (AUTO) 1.2 K/uL (0.8-4.8); LYMPHOCYTES % (AUTO) 8.2 % (20.0-44.0); MEAN CORPUSCULAR HEMOGLOBIN 25 PG (26.0-33.0); MEAN CORPUSCULAR HGB CONC 33 g/dl (31.0-36.0); MEAN CORPUSCULAR VOLUME 77 fL (80-96); MONOCYTES # (AUTO) 1.9 K/uL (0.1-1.30); MONOCYTES % (AUTO) 13.3 % (2.0-12.0); NEUTROPHILS % (AUTO) 77.3 % (43.0-81.0); PLATELET COUNT (AUTO) 389 K/uL (150-450); RED BLOOD CELL COUNT(AUTO) 4.19 MIL/uL (4.5-6.0); WHITE BLOOD COUNT (AUTO) 14.2 K/uL (4.3-11.0)
[2024-10-01 07:18] LABS: CALCIUM, SERUM 9.4 mg/dL (8.5-10.1); POTASSIUM 4.4 mmol/L (3.5-5.1)
[2024-10-01 07:26] LABS: CREATININE 8.4 mg/dL (0.6-1.3)
[2024-10-01 08:00] VITALS: BP 140/68; TEMP 97.5; O2SAT 98
[2024-10-01 16:00] VITALS: BP 111/64; TEMP 97.3; O2SAT 98
[2024-10-01 20:00] VITALS: BP 127/68; TEMP 98.6; O2SAT 94
[2024-10-02 00:30] VITALS: BP 137/65; TEMP 98.4; O2SAT 94
[2024-10-02 04:05] VITALS: BP 132/66; TEMP 98.6; O2SAT 92
[2024-10-02 07:30] VITALS: BP 135/59; TEMP 98.2; O2SAT 91
[2024-10-02 07:57] LABS: CALCIUM, SERUM 9.1 mg/dL (8.5-10.1); CREATININE 6.1 mg/dL (0.6-1.3); POTASSIUM 3.9 mmol/L (3.5-5.1)
[2024-10-02] MEDS ORDERED: NEPRO VAN 237 ML CAN PO PRN (15:30)
[2024-10-02 16:29] VITALS: BP 132/62; TEMP 97.9; O2SAT 94
[2024-10-02 20:00] VITALS: BP_SYST 109; BP_SYST 130; BP_DIAS 106; BP_DIAS 71; TEMP 98.2; O2SAT 96
[2024-10-02] MEDS: MAG HYDROX/AL HYDROX/SIMETH 30 ML UDC PO PRN (20:07)
[2024-10-03 06:42] LABS: BASOPHILS # (AUTO) 0.1 K/uL (0.0-0.2); BASOPHILS % (AUTO) 0.7 % (0.0-2.0); CALCIUM, SERUM 9.2 mg/dL (8.5-10.1); EOSINOPHILS # (AUTO) 0.1 K/uL (0.0-0.7); EOSINOPHILS % (AUTO) 1.3 % (0.0-6.0); HEMATOCRIT 32 % (39-51); HEMOGLOBIN 10.5 g/dL (13.5-17.5); LYMPHOCYTES # (AUTO) 1.6 K/uL (0.8-4.8); LYMPHOCYTES % (AUTO) 13.5 % (20.0-44.0); MEAN CORPUSCULAR HEMOGLOBIN 25 PG (26.0-33.0); MEAN CORPUSCULAR HGB CONC 33 g/dl (31.0-36.0); MEAN CORPUSCULAR VOLUME 77 fL (80-96); MONOCYTES # (AUTO) 1.7 K/uL (0.1-1.30); MONOCYTES % (AUTO) 14.3 % (2.0-12.0); NEUTROPHILS # (AUTO) 8.1 K/uL (1.8-8.9); NEUTROPHILS % (AUTO) 70.2 % (43.0-81.0); PLATELET COUNT (AUTO) 391 K/uL (150-450); POTASSIUM 4.5 mmol/L (3.5-5.1); RED BLOOD CELL COUNT(AUTO) 4.21 MIL/uL (4.5-6.0); WHITE BLOOD COUNT (AUTO) 11.5 K/uL (4.3-11.0)
[2024-10-03 07:08] LABS: CREATININE 7.7 mg/dL (0.6-1.3)
[2024-10-03 08:00] VITALS: BP 126/85; TEMP 98.6; O2SAT 94
[2024-10-03 16:00] VITALS: BP 127/94; TEMP 98.2; O2SAT 96
[2024-10-03 21:34] VITALS: BP 112/54; TEMP 98.8; O2SAT 98
[2024-10-04 08:00] VITALS: BP 127/62; TEMP 98.2; O2SAT 94
[2024-10-04 08:14] LABS: BASOPHILS # (AUTO) 0.1 K/uL (0.0-0.2); BASOPHILS % (AUTO) 0.5 % (0.0-2.0); EOSINOPHILS # (AUTO) 0.1 K/uL (0.0-0.7); EOSINOPHILS % (AUTO) 0.7 % (0.0-6.0); HEMATOCRIT 32 % (39-51); HEMOGLOBIN 10.8 g/dL (13.5-17.5); LYMPHOCYTES # (AUTO) 1.6 K/uL (0.8-4.8); LYMPHOCYTES % (AUTO) 11.5 % (20.0-44.0); MEAN CORPUSCULAR HEMOGLOBIN 26 PG (26.0-33.0); MEAN CORPUSCULAR HGB CONC 34 g/dl (31.0-36.0); MEAN CORPUSCULAR VOLUME 77 fL (80-96); MONOCYTES # (AUTO) 1.9 K/uL (0.1-1.30); MONOCYTES % (AUTO) 13.3 % (2.0-12.0); NEUTROPHILS # (AUTO) 10.4 K/uL (1.8-8.9); PLATELET COUNT (AUTO) 451 K/uL (150-450); RED BLOOD CELL COUNT(AUTO) 4.18 MIL/uL (4.5-6.0); RED CELL DISTRIBUTION WIDTH 22.4 % (11.5-15.0)
[2024-10-04 08:28] LABS: CALCIUM, SERUM 9.4 mg/dL (8.5-10.1); CREATININE 5.9 mg/dL (0.6-1.3); MAGNESIUM 2.3 mg/dL (1.8-2.4); PHOSPHORUS 3.8 mg/dL (2.5-4.9); POTASSIUM 3.9 mmol/L (3.5-5.1)
[2024-10-04 16:05] VITALS: BP 123/74; TEMP 98.2; O2SAT 94
[2024-10-04 20:00] VITALS: BP 112/57; TEMP 98.1; O2SAT 94
[2024-10-04] MEDS: HEPARIN SODIUM, PORCINE 5000 UNITS/1 ML VIAL SQ SCH (20:46)
[2024-10-04] MEDS ORDERED: ENOXAPARIN SODIUM 40 MG/0.4 ML DISP.SYRIN SQ SCH (22:00)
[2024-10-05 00:32] VITALS: BP 112/57; TEMP 98.1; O2SAT 94
[2024-10-05 07:13] LABS: BASOPHILS % (AUTO) 0.3 % (0.0-2.0); EOSINOPHILS # (AUTO) 0.1 K/uL (0.0-0.7); EOSINOPHILS % (AUTO) 0.9 % (0.0-6.0); HEMATOCRIT 30 % (39-51); LYMPHOCYTES # (AUTO) 1.8 K/uL (0.8-4.8); LYMPHOCYTES % (AUTO) 14.5 % (20.0-44.0); MEAN CORPUSCULAR HEMOGLOBIN 25 PG (26.0-33.0); MEAN CORPUSCULAR HGB CONC 33 g/dl (31.0-36.0); MEAN CORPUSCULAR VOLUME 76 fL (80-96); MONOCYTES # (AUTO) 1.7 K/uL (0.1-1.30); MONOCYTES % (AUTO) 13.8 % (2.0-12.0); NEUTROPHILS # (AUTO) 8.6 K/uL (1.8-8.9); NEUTROPHILS % (AUTO) 70.5 % (43.0-81.0); PLATELET COUNT (AUTO) 431 K/uL (150-450); RED BLOOD CELL COUNT(AUTO) 3.99 MIL/uL (4.5-6.0); RED CELL DISTRIBUTION WIDTH 22.1 % (11.5-15.0); WHITE BLOOD COUNT (AUTO) 12.3 K/uL (4.3-11.0)
[2024-10-05 07:15] LABS: CALCIUM, SERUM 8.9 mg/dL (8.5-10.1); MAGNESIUM 2.4 mg/dL (1.8-2.4); PHOSPHORUS 5.3 mg/dL (2.5-4.9); POTASSIUM 3.8 mmol/L (3.5-5.1)
[2024-10-05 07:30] VITALS: BP 144/68; TEMP 97.7; O2SAT 96
[2024-10-05 07:38] LABS: CREATININE 7.6 mg/dL (0.6-1.3)
[2024-10-05] MEDS ORDERED: CYAN500T64 PO (10:55)
[2024-10-05] MEDS ORDERED: IPRA0.2S9 NEB (10:55)
[2024-10-05] MEDS ORDERED: PROP40TA7 PO (10:55)
[2024-10-05] MEDS ORDERED: ALBU2.5V13 NEB (10:55)
[2024-10-05] MEDS ORDERED: LIDO30AD10 TP (10:55)
[2024-10-05] MEDS ORDERED: METH750T3 PO (10:55)
[2024-10-05 16:00] VITALS: BP 131/59; TEMP 97.9; O2SAT 96
[2024-10-05 20:00] VITALS: BP 124/61; TEMP 97.9; O2SAT 95
[2024-10-05 21:00] VITALS: BP 124/61
== END 2024-10-05 23:53 | DRG 314 ==
LOC: ER 11:42 → TELE 16:37 → MED 10-02 12:09
PROVIDERS: ADMIT Nurse Practitioner Family; ATTEND Student in an Organized Health Care Education/Training Program
PROC: 5A1D70Z Performance of Urinary Filtration, Intermittent, Less than 6 Hours Per Day (ICD-10-PCS; principal; 2024-09-29)
DX: T86.22 Heart transplant failure (principal); A41.9 Sepsis, unspecified organism; I50.23 Acute on chronic systolic (congestive) heart failure; J96.21 Acute and chronic respiratory failure with hypoxia; J15.9 Unspecified bacterial pneumonia; N18.6 End stage renal disease; E46 Unspecified protein-calorie malnutrition; I13.2 Hypertensive heart and chronic kidney disease with heart failure and with stage 5 chronic kidney disease, or end stage renal disease; I50.22 Chronic systolic (congestive) heart failure; D84.821 Immunodeficiency due to drugs; N39.0 Urinary tract infection, site not specified; I42.9 Cardiomyopathy, unspecified; J44.0 Chronic obstructive pulmonary disease with (acute) lower respiratory infection; Z68.1 Body mass index [BMI] 19.9 or less, adult; Z94.1 Heart transplant status; Y83.8 Other surgical procedures as the cause of abnormal reaction of the patient, or of later complication, without mention of misadventure at the time of the procedure; Y92.129 Unspecified place in nursing home as the place of occurrence of the external cause; E88.09 Other disorders of plasma-protein metabolism, not elsewhere classified; E03.9 Hypothyroidism, unspecified; E78.5 Hyperlipidemia, unspecified; F41.9 Anxiety disorder, unspecified; R62.7 Adult failure to thrive; Z99.2 Dependence on renal dialysis; F17.210 Nicotine dependence, cigarettes, uncomplicated; R91.1 Solitary pulmonary nodule; M89.8X9 Other specified disorders of bone, unspecified site; E11.22 Type 2 diabetes mellitus with diabetic chronic kidney disease; Z99.81 Dependence on supplemental oxygen; D63.8 Anemia in other chronic diseases classified elsewhere; Z91.81 History of falling; Z79.60 Long term (current) use of unspecified immunomodulators and immunosuppressants; M81.0 Age-related osteoporosis without current pathological fracture; Z79.899 Other long term (current) drug therapy; K42.9 Umbilical hernia without obstruction or gangrene; R23.4 Changes in skin texture
CPT/HCPCS: 36415; 36600; 71045-TC; 80048-TC; 80076-TC; 80202-TC; 81001; 82803-TC; 83605-TC; 83735-TC; 83880; 84100-TC; 84484-TC; 85025-TC; 85730-TC; 86480; 86803; 87040-TC; 87081-TC; 87086-TC; 87806; 90935-TC; 94760-TC; 94799-TC; 97110-TC; 97116-TC; 97530-TC; 97535-TC; A4223; A6403; G0378; J0692; J1644; J2470; J2919; J3370; J7030; J7060; J7512

== ENCOUNTER 2025-01-20 11:59 | Inpatient (IN) | payer MEDICARE ==
[~2025-01-20] VITALS: Ht 170.2 cm; Wt 58.5 kg
[~2025-01-20 11:59] MED LIST changes: +ALBU2.5V13 NEB; +CYAN500T64 PO; +IPRA0.2S9 NEB; +LIDO30AD10 TP; +METH750T3 PO; +PROP40TA7 PO
[2025-01-20] MEDS ORDERED: PROP40TA7 PO (13:27)
[2025-01-20 13:57] LABS: ALBUMIN 2.7 g/dL (3.4-5.0); BILIRUBIN,DIRECT 0.1 mg/dL (0.0-0.2); BILIRUBIN,TOTAL 0.7 mg/dL (0.2-1.0); CALCIUM, SERUM 8.8 mg/dL (8.5-10.1); POTASSIUM 4.2 mmol/L (3.5-5.1); TOTAL PROTEIN, SERUM 7.2 g/dL (6.4-8.2)
[2025-01-20 14:06] LABS: BASOPHILS # (AUTO) 0.1 K/uL (0.0-0.2); BASOPHILS % (AUTO) 0.5 % (0.0-2.0); EOSINOPHILS # (AUTO) 0.1 K/uL (0.0-0.7); HEMATOCRIT 21 % (39-51); LYMPHOCYTES # (AUTO) 2.1 K/uL (0.8-4.8); LYMPHOCYTES % (AUTO) 16.9 % (20.0-44.0); MEAN CORPUSCULAR HEMOGLOBIN 24 PG (26.0-33.0); MEAN CORPUSCULAR HGB CONC 32 g/dl (31.0-36.0); MEAN CORPUSCULAR VOLUME 75 fL (80-96); MONOCYTES # (AUTO) 1.4 K/uL (0.1-1.30); MONOCYTES % (AUTO) 11.5 % (2.0-12.0); NEUTROPHILS # (AUTO) 8.6 K/uL (1.8-8.9); NEUTROPHILS % (AUTO) 70.1 % (43.0-81.0); PLATELET COUNT (AUTO) 506 K/uL (150-450); RED BLOOD CELL COUNT(AUTO) 2.86 MIL/uL (4.5-6.0); RED CELL DISTRIBUTION WIDTH 21.8 % (11.5-15.0); WHITE BLOOD COUNT (AUTO) 12.3 K/uL (4.3-11.0)
[2025-01-20 14:10] LABS: CREATININE 7.9 mg/dL (0.6-1.3)
[2025-01-20 14:11] LABS: HEMOGLOBIN 6.9 g/dL (13.5-17.5)
[2025-01-20 14:12] LABS: INR 1.01 (0.91-1.10); PARTIAL THROMBOPLASTIN TIME 26.8 SEC (24.3-34.3); PROTHROMBIN TIME 10.7 SECS (9.2-11.1)
[2025-01-20 14:37] LABS: LYMPHOCYTES % (MANUAL) 16 % (16-48); MONOCYTES % (MANUAL) 4 % (0-11.0); NEUTROPHILS % (MANUAL) 80 (42-76)
[2025-01-20 14:38] LABS: ANISOCYTOSIS 1+; HYPOCHROMASIA 1+; OVALOCYTES 1+; PLATELET ESTIMATE INCREASED
[2025-01-20] MEDS ORDERED: ALPRAZOLAM 0.5 MG TABLET PO PRN (17:00)
[2025-01-20] MEDS ORDERED: SODIUM BICARBONATE 325 MG TABLET PO SCH (17:00)
[2025-01-20] MEDS ORDERED: Z GUARD REMEDY 4 OZ OINT TP PRN (17:00)
[2025-01-20] MEDS ORDERED: MAG HYDROX/AL HYDROX/SIMETH 30 ML UDC PO PRN (17:00)
[2025-01-20] MEDS ORDERED: MAGNESIUM HYDROXIDE 30 ML UDC PO PRN (17:00)
[2025-01-20] MEDS ORDERED: GEMFIBROZIL 600 MG TABLET PO SCH (17:00)
[2025-01-20] MEDS ORDERED: ONDANSETRON HCL/PF 4 MG/2 ML VIAL IVP PRN (17:00)
[2025-01-20] MEDS ORDERED: PROPRANOLOL HCL 40 MG TABLET PO SCH (17:00)
[2025-01-20 20:14] VITALS: O2SAT 98
[2025-01-20] MEDS: IPRATROPIUM NEB FS 0.5 MG/2.5 ML AMPUL.NEB IH SCH (20:23)
[2025-01-20 20:29] VITALS: O2SAT 99
[2025-01-20] MEDS: ATORVASTATIN 10 MG TABLET PO SCH (21:11)
[2025-01-20 21:32] LABS: HEMOGLOBIN 8.1 g/dL (13.5-17.5)
[2025-01-21] VITALS (13 sets, daily range): BP systolic 129–154; BP diastolic 62–80; TEMP 97.9; O2SAT 93–99
[2025-01-21] MEDS ORDERED: DEXTROSE 50%-WATER 50 ML DISP.SYRIN IV PRN ×2 (03:30)
[2025-01-21] MEDS ORDERED: INSULIN REGULAR, HUMAN 100 UNIT/ML 3 ML VIAL SQ PRN (03:30)
[2025-01-21] MEDS: BLOOD SUGAR DIAGNOSTIC 1 EACH STRIP IN SCH (06:30)
[2025-01-21 07:26] LABS: BASOPHILS % (AUTO) 0.4 % (0.0-2.0); EOSINOPHILS # (AUTO) 0.1 K/uL (0.0-0.7); EOSINOPHILS % (AUTO) 0.9 % (0.0-6.0); HEMATOCRIT 24 % (39-51); HEMOGLOBIN 7.9 g/dL (13.5-17.5); LYMPHOCYTES # (AUTO) 2.4 K/uL (0.8-4.8); LYMPHOCYTES % (AUTO) 18.5 % (20.0-44.0); MEAN CORPUSCULAR HEMOGLOBIN 25 PG (26.0-33.0); MEAN CORPUSCULAR HGB CONC 32 g/dl (31.0-36.0); MEAN CORPUSCULAR VOLUME 77 fL (80-96); MONOCYTES # (AUTO) 1.1 K/uL (0.1-1.30); MONOCYTES % (AUTO) 8.5 % (2.0-12.0); NEUTROPHILS # (AUTO) 9.1 K/uL (1.8-8.9); NEUTROPHILS % (AUTO) 71.7 % (43.0-81.0); PLATELET COUNT (AUTO) 488 K/uL (150-450); RED BLOOD CELL COUNT(AUTO) 3.16 MIL/uL (4.5-6.0); RED CELL DISTRIBUTION WIDTH 23.9 % (11.5-15.0); WHITE BLOOD COUNT (AUTO) 12.7 K/uL (4.3-11.0)
[2025-01-21] MEDS ORDERED: BLOOD SUGAR DIAGNOSTIC 1 EACH STRIP IN SCH (07:30)
[2025-01-21] MEDS ORDERED: Medication Not On Formulary EA (Omeprazole 40 MG) PO SCH (07:30)
[2025-01-21 07:59] LABS: CALCIUM, SERUM 8.9 mg/dL (8.5-10.1); MAGNESIUM 2.2 mg/dL (1.8-2.4); PHOSPHORUS 4.1 mg/dL (2.5-4.9); POTASSIUM 4.7 mmol/L (3.5-5.1)
[2025-01-21 08:08] LABS: CREATININE 8.8 mg/dL (0.6-1.3)
[2025-01-21] MEDS: PANTOPRAZOLE 40 MG VIAL IV SCH (08:56)
[2025-01-21] MEDS: SODIUM BICARBONATE 650 MG TABLET PO SCH (08:57)
[2025-01-21] MEDS: SERTRALINE HCL 50 MG TABLET PO SCH (08:57)
[2025-01-21] MEDS: AMLODIPINE BESYLATE 5 MG TABLET PO SCH (08:57)
[2025-01-21] MEDS: LEVOTHYROXINE SODIUM 50 MCG TABLET PO SCH (08:57)
[2025-01-21] MEDS ORDERED: Medication Not On Formulary EA (Omega-3 Fatty Acids/Fish Oil (Omega 3 1,000 Mg Softgel) PO SCH (09:00)
[2025-01-21] MEDS ORDERED: PROPRANOLOL HCL 40 MG TABLET PO SCH (09:00)
[2025-01-21] MEDS: CALCIUM CITRATE(CITRACAL) /VITAMIN D 1 TAB TABLET PO SCH (09:18)
[2025-01-21] MEDS: PROPRANOLOL HCL 10 MG TABLET PO SCH (09:27)
[2025-01-21 11:57] LABS: APPEARANCE,URINE CLEAR (CLEAR); BILIRUBIN,URINE NEGATIVE (NEGATIVE); BLOOD, URINE NEGATIVE Ery/uL (NEGATIVE); COLOR,URINE YELLOW (YELLOW); KETONES,URINE NEGATIVE (NEGATIVE); LEUKOCYTE ESTERASE ,URINE NEGATIVE (NEGATIVE); NITRITE, URINE NEGATIVE (NEGATIVE); PH,URINE 7.5 (5.0-8.0); PROTEIN,URINE 2+ mg/dl (NEGATIVE); UGLUCOSE TRACE mg/dL (NEGATIVE); UROBILINOGEN,URINE 0.2 EU/dL (0.2)
[2025-01-21 12:01] LABS: OCCULT BLOOD STOOL POSITIVE (NEGATIVE)
[2025-01-21 12:13] LABS: ADD URINE CULTURE YES; BACTERIA,URINE Few /HPF (None Seen); MUCUS,URINE Few /LPF (None Seen); RBC,URINE 0-2 /HPF (0-2)
[2025-01-21] MEDS: SOD FERRIC GLUC 125 MG in IV NS 0.9% 100 ML IV SCH (14:37)
[2025-01-21] MEDS: ALENDRONATE 70 MG TABLET PO SCH (16:06)
[2025-01-21] MEDS: ACETAMINOPHEN 325 MG TABLET PO PRN (18:40)
[2025-01-22] VITALS (11 sets, daily range): BP systolic 116–153; BP diastolic 71–81; TEMP 97.9–99.3; O2SAT 92–98
[2025-01-22 07:01] LABS: BASOPHILS # (AUTO) 0.1 K/uL (0.0-0.2); BASOPHILS % (AUTO) 0.5 % (0.0-2.0); EOSINOPHILS # (AUTO) 0.1 K/uL (0.0-0.7); EOSINOPHILS % (AUTO) 0.7 % (0.0-6.0); HEMATOCRIT 29 % (39-51); HEMOGLOBIN 9.4 g/dL (13.5-17.5); LYMPHOCYTES % (AUTO) 14.2 % (20.0-44.0); MEAN CORPUSCULAR HEMOGLOBIN 25 PG (26.0-33.0); MEAN CORPUSCULAR HGB CONC 33 g/dl (31.0-36.0); MEAN CORPUSCULAR VOLUME 77 fL (80-96); MONOCYTES # (AUTO) 1.4 K/uL (0.1-1.30); MONOCYTES % (AUTO) 9.8 % (2.0-12.0); NEUTROPHILS # (AUTO) 10.4 K/uL (1.8-8.9); NEUTROPHILS % (AUTO) 74.8 % (43.0-81.0); PLATELET COUNT (AUTO) 571 K/uL (150-450); RED BLOOD CELL COUNT(AUTO) 3.78 MIL/uL (4.5-6.0); RED CELL DISTRIBUTION WIDTH 24.2 % (11.5-15.0); WHITE BLOOD COUNT (AUTO) 13.9 K/uL (4.3-11.0)
[2025-01-22 07:27] LABS: CALCIUM, SERUM 9.3 mg/dL (8.5-10.1); CREATININE 6.2 mg/dL (0.6-1.3); POTASSIUM 4.1 mmol/L (3.5-5.1)
[2025-01-22] MEDS: CYANOCOBALAMIN 500 MCG TABLET PO SCH (08:55)
[2025-01-22] MEDS: PANTOPRAZOLE 40 MG TABLET.DR PO SCH (08:55)
[2025-01-22] MEDS: DOXYCYCLINE 100 MG in IV D5W 100 ML IV SCH (10:59)
[2025-01-22] MEDS: CEFTRIAXONE 1 G in IV D5W 50 ML IV SCH (12:05)
[2025-01-22] MEDS: INSULIN REGULAR, HUMAN 100 UNIT/ML 3 ML VIAL SQ PRN (21:55)
[2025-01-23 07:19] VITALS: O2SAT 96
[2025-01-23 07:38] VITALS: O2SAT 98
[2025-01-23 08:00] VITALS: BP 125/76; TEMP 98.2; O2SAT 93
[2025-01-23 12:26] LABS: BASOPHILS # (AUTO) 0.1 K/uL (0.0-0.2); EOSINOPHILS # (AUTO) 0.1 K/uL (0.0-0.7); EOSINOPHILS % (AUTO) 0.8 % (0.0-6.0); HEMATOCRIT 29 % (39-51); HEMOGLOBIN 9.5 g/dL (13.5-17.5); LYMPHOCYTES # (AUTO) 1.6 K/uL (0.8-4.8); LYMPHOCYTES % (AUTO) 15.6 % (20.0-44.0); MEAN CORPUSCULAR HEMOGLOBIN 25 PG (26.0-33.0); MEAN CORPUSCULAR HGB CONC 33 g/dl (31.0-36.0); MEAN CORPUSCULAR VOLUME 77 fL (80-96); MONOCYTES # (AUTO) 1.2 K/uL (0.1-1.30); MONOCYTES % (AUTO) 11.4 % (2.0-12.0); NEUTROPHILS # (AUTO) 7.5 K/uL (1.8-8.9); NEUTROPHILS % (AUTO) 71.2 % (43.0-81.0); PLATELET COUNT (AUTO) 487 K/uL (150-450); RED BLOOD CELL COUNT(AUTO) 3.75 MIL/uL (4.5-6.0); RED CELL DISTRIBUTION WIDTH 23.8 % (11.5-15.0); WHITE BLOOD COUNT (AUTO) 10.5 K/uL (4.3-11.0)
[2025-01-23] MEDS ORDERED: DOXY100C2 PO (13:15)
[2025-01-23] MEDS ORDERED: PANT40TA49 PO (13:15)
[2025-01-23] MEDS ORDERED: PROP10TA68 PO (13:15)
[2025-01-23 13:25] VITALS: O2SAT 94
[2025-01-23] MEDS ORDERED: EPOETIN ALFA (4000 UNIT) 4,000 UNIT/ML VIAL SQ SCH (15:00)
[2025-01-23 16:00] VITALS: BP 130/73; TEMP 98; O2SAT 96
[2025-01-23 17:00] VITALS: BP 120/77
== END 2025-01-23 18:00 | disposition home or self-care (01) | DRG 377 ==
LOC: ER 12:05 → TELE 17:03 → MED 01-22 11:55
PROVIDERS: ADMIT Nurse Practitioner Acute Care; ATTEND Nurse Practitioner Acute Care
PROC: 30233N1 Transfusion of Nonautologous Red Blood Cells into Peripheral Vein, Percutaneous Approach (ICD-10-PCS; principal; 2025-01-20)
PROC: 5A1D70Z Performance of Urinary Filtration, Intermittent, Less than 6 Hours Per Day (ICD-10-PCS; 2025-01-21)
DX: K92.2 Gastrointestinal hemorrhage, unspecified (principal); J15.69 Pneumonia due to other Gram-negative bacteria; N18.6 End stage renal disease; E44.0 Moderate protein-calorie malnutrition; I13.2 Hypertensive heart and chronic kidney disease with heart failure and with stage 5 chronic kidney disease, or end stage renal disease; D62 Acute posthemorrhagic anemia; Z94.1 Heart transplant status; Z99.2 Dependence on renal dialysis; E03.9 Hypothyroidism, unspecified; E78.5 Hyperlipidemia, unspecified; E88.09 Other disorders of plasma-protein metabolism, not elsewhere classified; M81.0 Age-related osteoporosis without current pathological fracture; D72.829 Elevated white blood cell count, unspecified; Z68.20 Body mass index [BMI] 20.0-20.9, adult; D63.1 Anemia in chronic kidney disease; Z79.60 Long term (current) use of unspecified immunomodulators and immunosuppressants; I50.9 Heart failure, unspecified; E11.22 Type 2 diabetes mellitus with diabetic chronic kidney disease
CPT/HCPCS: 36415; 71045-TC; 80048-TC; 80076-TC; 81001; 82272-TC; 82962-TC; 83735-TC; 84100-TC; 85025-TC; 85027-TC; 85730-TC; 86850-TC; 87086-TC; 90935-TC; 94760-TC; 94761-TC; 94799-TC; 97116-TC; 97530-TC; A4223; G0378; J0696; J1815; J2470; J2916; J3490; J7030; J7040; J7050; J7060; P9016

== ENCOUNTER 2025-02-15 12:41 | Emergency (ER) | payer MEDICARE ==
[~2025-02-15] VITALS: Ht 154.9 cm; Wt 51.7 kg
[~2025-02-15 12:41] MED LIST changes: -ALBU2.5V13 NEB; -CYAN500T64 PO; +DOXY100C2 PO; -IPRA0.2S9 NEB; -LIDO30AD10 TP; -METH750T3 PO; +PANT40TA49 PO; +PROP10TA68 PO; -PROP80CA51 PO
[2025-02-15] MEDS ORDERED: ACETAMINOPHEN ES 500 MG TABLET ONE (13:20)
[2025-02-15] MEDS ORDERED: TDAP [DIPH/PERTUSSIS/TET] 0.5 ML VIAL IM ONE (13:20)
[2025-02-15] MEDS: TDAP [DIPH/PERTUSSIS/TET] 0.5 ML VIAL IM ONE (13:31)
[2025-02-15] MEDS: ACETAMINOPHEN ES 500 MG TABLET PO ONE (13:32)
[2025-02-15 13:57] LABS: BASOPHILS % (AUTO) 0.4 % (0.0-2.0); EOSINOPHILS # (AUTO) 0.1 K/uL (0.0-0.7); EOSINOPHILS % (AUTO) 0.5 % (0.0-6.0); HEMATOCRIT 31 % (39-51); HEMOGLOBIN 10.4 g/dL (13.5-17.5); LYMPHOCYTES # (AUTO) 1.7 K/uL (0.8-4.8); LYMPHOCYTES % (AUTO) 14.3 % (20.0-44.0); MEAN CORPUSCULAR HEMOGLOBIN 26 PG (26.0-33.0); MEAN CORPUSCULAR HGB CONC 33 g/dl (31.0-36.0); MEAN CORPUSCULAR VOLUME 78 fL (80-96); MONOCYTES % (AUTO) 8.7 % (2.0-12.0); NEUTROPHILS # (AUTO) 8.9 K/uL (1.8-8.9); NEUTROPHILS % (AUTO) 76.1 % (43.0-81.0); PLATELET COUNT (AUTO) 269 K/uL (150-450); RED BLOOD CELL COUNT(AUTO) 3.99 MIL/uL (4.5-6.0); RED CELL DISTRIBUTION WIDTH 24.8 % (11.5-15.0); WHITE BLOOD COUNT (AUTO) 11.7 K/uL (4.3-11.0)
[2025-02-15 14:06] LABS: CALCIUM, SERUM 9.6 mg/dL (8.5-10.1); POTASSIUM 4.1 mmol/L (3.5-5.1)
[2025-02-15 14:10] LABS: CREATININE 8.1 mg/dL (0.6-1.3)
[2025-02-15 15:21] VITALS: BP 128/87; TEMP 98; O2SAT 97
== END 2025-02-15 15:21 | disposition home or self-care (01) ==
LOC: ER 12:43
DX: S00.81XA Abrasion of other part of head, initial encounter (principal); I12.0 Hypertensive chronic kidney disease with stage 5 chronic kidney disease or end stage renal disease; E11.22 Type 2 diabetes mellitus with diabetic chronic kidney disease; N18.6 End stage renal disease; E03.9 Hypothyroidism, unspecified; E78.5 Hyperlipidemia, unspecified; D64.9 Anemia, unspecified; J44.9 Chronic obstructive pulmonary disease, unspecified; M81.0 Age-related osteoporosis without current pathological fracture; Z79.52 Long term (current) use of systemic steroids; Z79.60 Long term (current) use of unspecified immunomodulators and immunosuppressants; Z79.899 Other long term (current) drug therapy; Z94.1 Heart transplant status; Z99.2 Dependence on renal dialysis; Z79.890 Hormone replacement therapy; W01.0XXA Fall on same level from slipping, tripping and stumbling without subsequent striking against object, initial encounter; Y93.89 Activity, other specified; Y92.89 Other specified places as the place of occurrence of the external cause; Y99.8 Other external cause status
CPT/HCPCS: 36415; 70450-TC; 80048-TC; 85025-TC; 90715

== ENCOUNTER 2025-07-24 14:30 | Inpatient (IN) | payer MEDICARE ==
[~2025-07-24] VITALS: Ht 165.1 cm; Wt 48.1 kg
[2025-07-24 15:43] LABS: PLATELET COUNT (AUTO) 270 K/uL (150-450); RED CELL DISTRIBUTION WIDTH 18.3 % (11.5-15.0); WHITE BLOOD COUNT (AUTO) 10.5 K/uL (4.3-11.0)
[2025-07-24 15:47] LABS: RED BLOOD CELL COUNT(AUTO) 1.64 MIL/uL (4.5-6.0)
[2025-07-24 15:53] LABS: CALCIUM, SERUM 10.7 mg/dL (8.5-10.1); SODIUM SERUM 135 mmol/L (136-145)
[2025-07-24 16:00] LABS: ASPARTATE AMINOTRANSFERASE < 5 U/L (15-37); CREATININE 9.7 mg/dL (0.6-1.3); TOTAL PROTEIN, SERUM 5.9 g/dL (6.4-8.2); UREA NITROGEN, BLOOD 163 mg/dL (7-18)
[2025-07-24 16:17] LABS: BASOPHILS % (MANUAL) 0 % (0.0-2.0); EOSINOPHILS % (MANUAL) 2 % (0-4); LYMPHOCYTES % (MANUAL) 15 % (16-48); MONOCYTES % (MANUAL) 9 % (0-11.0); NEUTROPHILS % (MANUAL) 74 (42-76); PLATELET ESTIMATE ADEQUATE
[2025-07-24] MEDS ORDERED: METH750T3 PO (16:38)
[2025-07-24] MEDS ORDERED: LOPE2TAB23 PO (16:38)
[2025-07-24 16:54] LABS: INR 1.0 (0.91-1.10)
[2025-07-24] MEDS ORDERED: ONDANSETRON HCL/PF 4 MG/2 ML VIAL ONE (17:30)
[2025-07-24] MEDS ORDERED: MORPHINE SULFATE INJ 2 MG/ML DISP.SYRIN ONE (17:31)
[2025-07-24] MEDS: MORPHINE SULFATE INJ 2 MG/ML DISP.SYRIN IV ONE (17:35)
[2025-07-24] MEDS: ONDANSETRON HCL/PF 4 MG/2 ML VIAL IV ONE (17:35)
[2025-07-24 18:06] LABS: OCCULT BLOOD STOOL POSITIVE (NEGATIVE)
[2025-07-24 19:09] LABS: APPEARANCE,URINE CLEAR (CLEAR); BLOOD, URINE TRACE-INTA Ery/uL (NEGATIVE); LEUKOCYTE ESTERASE ,URINE NEGATIVE (NEGATIVE); NITRITE, URINE NEGATIVE (NEGATIVE); UGLUCOSE TRACE mg/dL (NEGATIVE)
[2025-07-24 19:21] LABS: ADD URINE CULTURE NO; SQUAMOUS EPITHELIAL CELL,UR Rare /HPF (None Seen)
[2025-07-24] MEDS ORDERED: ONDANSETRON HCL/PF 4 MG/2 ML VIAL IVP PRN (19:30)
[2025-07-24] MEDS ORDERED: METHOCARBAMOL (750MG) 750 MG TABLET PO PRN (19:30)
[2025-07-24] MEDS ORDERED: MAGNESIUM HYDROXIDE 30 ML UDC PO PRN (19:30)
[2025-07-24] MEDS ORDERED: MAG HYDROX/AL HYDROX/SIMETH 30 ML UDC PO PRN (19:30)
[2025-07-24] MEDS ORDERED: DEXTROSE 50%-WATER 50 ML DISP.SYRIN IV PRN (19:30)
[2025-07-24] MEDS ORDERED: Z GUARD REMEDY 4 OZ OINT TP PRN (19:30)
[2025-07-24] MEDS ORDERED: PANTOPRAZOLE 40 MG VIAL ONE (19:53)
[2025-07-24] MEDS: PANTOPRAZOLE 80 MG in IV NS 0.9% 500 ML IV ONE (19:57)
[2025-07-24 21:00] VITALS: BP 141/56; TEMP 98.2
[2025-07-24] MEDS ORDERED: PANTOPRAZOLE 40 MG VIAL IV SCH (21:00)
[2025-07-24] MEDS: BLOOD SUGAR DIAGNOSTIC 1 EACH STRIP IN SCH (22:41)
[2025-07-24] MEDS: IV D5/0.45 NACL 1,000 ML IV PRN (23:45)
[2025-07-25] VITALS (8 sets, daily range): BP systolic 119–147; BP diastolic 50–66; TEMP 97.4–98.4; O2SAT 94–100
[2025-07-25] MEDS: IPRATROPIUM NEB FS 0.5 MG/2.5 ML AMPUL.NEB NEB SCH (07:54)
[2025-07-25 08:01] LABS: CALCIUM, SERUM 10.4 mg/dL (8.5-10.1); PHOSPHORUS 2.4 mg/dL (2.5-4.9); SODIUM SERUM 136.0 mmol/L (136-145)
[2025-07-25 08:16] LABS: PLATELET COUNT (AUTO) 265 K/uL (150-450); RED CELL DISTRIBUTION WIDTH 17.5 % (11.5-15.0); WHITE BLOOD COUNT (AUTO) 10.6 K/uL (4.3-11.0)
[2025-07-25] MEDS: SERTRALINE HCL 50 MG TABLET PO SCH (08:42)
[2025-07-25] MEDS: PROPRANOLOL HCL 40 MG TABLET PO SCH (08:43)
[2025-07-25] MEDS: LEVOTHYROXINE SODIUM 50 MCG TABLET PO SCH (08:44)
[2025-07-25 08:45] LABS: CREATININE 10.1 mg/dL (0.6-1.3)
[2025-07-25] MEDS: AMLODIPINE BESYLATE 5 MG TABLET PO SCH (08:45)
[2025-07-25 08:46] LABS: UREA NITROGEN, BLOOD 206.0 mg/dL (7-18)
[2025-07-25 08:47] LABS: RED BLOOD CELL COUNT(AUTO) 1.99 MIL/uL (4.5-6.0)
[2025-07-25 09:42] LABS: EOSINOPHILS % (MANUAL) 1 % (0-4); LYMPHOCYTES % (MANUAL) 24 % (16-48); MONOCYTES % (MANUAL) 9 % (0-11.0); NEUTROPHILS % (MANUAL) 66 (42-76)
[2025-07-25 09:47] LABS: PLATELET ESTIMATE ADEQUATE
[2025-07-25] MEDS: EPOETIN ALFA (10,000 UNIT) 10,000 UNIT/ML VIAL SQ SCH (15:45)
[2025-07-25] MEDS: ACETAMINOPHEN 325 MG TABLET PO PRN (15:49)
[2025-07-25] MEDS: ZOLPIDEM TARTRATE 5 MG TABLET PO PRN (23:33)
[2025-07-26] VITALS (15 sets, daily range): BP systolic 126–161; BP diastolic 50–76; TEMP 97.1–98.1; O2SAT 96–100
[2025-07-26 06:58] LABS: PLATELET COUNT (AUTO) 238 K/uL (150-450); RED CELL DISTRIBUTION WIDTH 16.7 % (11.5-15.0); WHITE BLOOD COUNT (AUTO) 9.4 K/uL (4.3-11.0)
[2025-07-26 07:06] LABS: ASPARTATE AMINOTRANSFERASE 5.0 U/L (15-37); CALCIUM, SERUM 9.0 mg/dL (8.5-10.1); PHOSPHORUS 2.2 mg/dL (2.5-4.9); SODIUM SERUM 136.0 mmol/L (136-145); TOTAL PROTEIN, SERUM 5.7 g/dL (6.4-8.2)
[2025-07-26 07:34] LABS: CREATININE 6.8 mg/dL (0.6-1.3)
[2025-07-26 07:53] LABS: UREA NITROGEN, BLOOD 99.0 mg/dL (7-18)
[2025-07-26 07:57] LABS: RED BLOOD CELL COUNT(AUTO) 1.99 MIL/uL (4.5-6.0)
[2025-07-26 08:24] LABS: LYMPHOCYTES % (MANUAL) 16 % (16-48); MONOCYTES % (MANUAL) 8 % (0-11.0); NEUTROPHILS % (MANUAL) 76 (42-76); PLATELET ESTIMATE ADEQUATE
[2025-07-26] MEDS: K PHOS NEUTRAL 250 MG TABLET PO ONE (16:56)
[2025-07-26] MEDS ORDERED: ANESTHESIA TRAY IN PYXIS 1 EA TRAY MC ONE (19:02)
[2025-07-27] VITALS (12 sets, daily range): BP systolic 102–145; BP diastolic 58–67; TEMP 97.3–98.8; O2SAT 92–100
[2025-07-27 06:07] LABS: FOLIC ACID 4.8 ng/mL (>3.0)
[2025-07-27 06:20] LABS: PLATELET COUNT (AUTO) 268 K/uL (150-450); RED BLOOD CELL COUNT(AUTO) 2.57 MIL/uL (4.5-6.0); RED CELL DISTRIBUTION WIDTH 15.8 % (11.5-15.0); WHITE BLOOD COUNT (AUTO) 25.1 K/uL (4.3-11.0)
[2025-07-27 06:36] LABS: ASPARTATE AMINOTRANSFERASE 11 U/L (15-37); CALCIUM, SERUM 8.8 mg/dL (8.5-10.1); CREATININE 5.9 mg/dL (0.6-1.3); PHOSPHORUS 1.5 mg/dL (2.5-4.9); SODIUM SERUM 138 mmol/L (136-145); TOTAL PROTEIN, SERUM 5.8 g/dL (6.4-8.2); UREA NITROGEN, BLOOD 66 mg/dL (7-18)
[2025-07-27] MEDS ORDERED: DOSING PER PHARMACY-ZOSYN IV 1 EA EA XX PRN (08:30)
[2025-07-27] MEDS: PIPERACILLIN /TAZOBACTAM 2.25 G in IV D5W 50 ML IV SCH (09:51)
[2025-07-27] MEDS: INSULIN REGULAR, HUMAN 100 UNIT/ML 3 ML VIAL SQ PRN (22:33)
[2025-07-28] VITALS (15 sets, daily range): BP systolic 123–156; BP diastolic 55–77; TEMP 97–98.5; O2SAT 94–100
[2025-07-28 06:21] LABS: PLATELET COUNT (AUTO) 281 K/uL (150-450); RED BLOOD CELL COUNT(AUTO) 2.41 MIL/uL (4.5-6.0); RED CELL DISTRIBUTION WIDTH 16.8 % (11.5-15.0); WHITE BLOOD COUNT (AUTO) 18.8 K/uL (4.3-11.0)
[2025-07-28 06:42] LABS: CALCIUM, SERUM 8.9 mg/dL (8.5-10.1); CREATININE 7.4 mg/dL (0.6-1.3); PHOSPHORUS 2.7 mg/dL (2.5-4.9); SODIUM SERUM 135.0 mmol/L (136-145); UREA NITROGEN, BLOOD 77.0 mg/dL (7-18)
[2025-07-28] MEDS ORDERED: DEXTROSE 50%-WATER 50 ML DISP.SYRIN IV PRN (20:00)
[2025-07-28] MEDS: INSULIN REGULAR, HUMAN 100 UNIT/ML 3 ML VIAL SQ PRN (21:21)
[2025-07-28] MEDS: BLOOD SUGAR DIAGNOSTIC 1 EACH STRIP IN SCH (21:21)
[2025-07-29] VITALS (17 sets, daily range): BP systolic 132–150; BP diastolic 52–91; TEMP 97.8–98.5; O2SAT 93–99
[2025-07-29 07:04] LABS: PLATELET COUNT (AUTO) 275 K/uL (150-450); RED BLOOD CELL COUNT(AUTO) 2.59 MIL/uL (4.5-6.0); RED CELL DISTRIBUTION WIDTH 15.9 % (11.5-15.0); WHITE BLOOD COUNT (AUTO) 13.0 K/uL (4.3-11.0)
[2025-07-29 09:34] LABS: CALCIUM, SERUM 8.4 mg/dL (8.5-10.1); CREATININE 5.2 mg/dL (0.6-1.3); PHOSPHORUS 2.3 mg/dL (2.5-4.9); SODIUM SERUM 140.0 mmol/L (136-145); UREA NITROGEN, BLOOD 32.0 mg/dL (7-18)
[2025-07-29 17:26] LABS: PLATELET COUNT (AUTO) 305 K/uL (150-450); RED BLOOD CELL COUNT(AUTO) 2.71 MIL/uL (4.5-6.0); RED CELL DISTRIBUTION WIDTH 16.5 % (11.5-15.0); WHITE BLOOD COUNT (AUTO) 14.6 K/uL (4.3-11.0)
[2025-07-30] VITALS (11 sets, daily range): BP systolic 141–151; BP diastolic 62–69; TEMP 98.4–98.6; O2SAT 91–99
[2025-07-30 07:11] LABS: PLATELET COUNT (AUTO) 361 K/uL (150-450); RED BLOOD CELL COUNT(AUTO) 2.99 MIL/uL (4.5-6.0); RED CELL DISTRIBUTION WIDTH 16.3 % (11.5-15.0); WHITE BLOOD COUNT (AUTO) 13.0 K/uL (4.3-11.0)
[2025-07-30 07:31] LABS: CALCIUM, SERUM 8.8 mg/dL (8.5-10.1); CREATININE 6.9 mg/dL (0.6-1.3); PHOSPHORUS 3.2 mg/dL (2.5-4.9); SODIUM SERUM 140.0 mmol/L (136-145); UREA NITROGEN, BLOOD 36.0 mg/dL (7-18)
[2025-07-31] VITALS (11 sets, daily range): BP systolic 142–159; BP diastolic 61–83; TEMP 97.4–98.5; O2SAT 96–99
[2025-07-31 06:50] LABS: PLATELET COUNT (AUTO) 403 K/uL (150-450); RED BLOOD CELL COUNT(AUTO) 2.91 MIL/uL (4.5-6.0); RED CELL DISTRIBUTION WIDTH 16.7 % (11.5-15.0); WHITE BLOOD COUNT (AUTO) 12.4 K/uL (4.3-11.0)
[2025-07-31 07:23] LABS: CALCIUM, SERUM 8.7 mg/dL (8.5-10.1); CREATININE 5.0 mg/dL (0.6-1.3); PHOSPHORUS 2.5 mg/dL (2.5-4.9); SODIUM SERUM 138.0 mmol/L (136-145); UREA NITROGEN, BLOOD 17.0 mg/dL (7-18)
[2025-07-31] MEDS ORDERED: PANT40TA2 PO (09:39)
[2025-07-31] MEDS ORDERED: AMOX-430 PO (09:42)
[2025-07-31] MEDS: OLANZAPINE 10 MG VIAL IM PRN (11:07)
[2025-07-31] MEDS ORDERED: LORAZEPAM INJ 2 MG/ML VIAL IV PRN (16:30)
[2025-07-31] MEDS: LORAZEPAM 1 MG TABLET PO PRN (16:38)
== END 2025-07-31 22:26 | disposition home health service (06) | DRG 377 ==
LOC: ER 14:35 → TELE1 19:13 → MEDSG1 07-25 09:47
PROVIDERS: ADMIT Student in an Organized Health Care Education/Training Program; ATTEND Internal Medicine
PROC: 30233N1 Transfusion of Nonautologous Red Blood Cells into Peripheral Vein, Percutaneous Approach (ICD-10-PCS; principal; 2025-07-24)
PROC: 5A1D70Z Performance of Urinary Filtration, Intermittent, Less than 6 Hours Per Day (ICD-10-PCS; 2025-07-25)
PROC: 0W3P8ZZ Control Bleeding in Gastrointestinal Tract, Via Natural or Artificial Opening Endoscopic (ICD-10-PCS; 2025-07-26)
DX: K31.811 Angiodysplasia of stomach and duodenum with bleeding (principal); G92.8 Other toxic encephalopathy; N18.6 End stage renal disease; I13.2 Hypertensive heart and chronic kidney disease with heart failure and with stage 5 chronic kidney disease, or end stage renal disease; D84.821 Immunodeficiency due to drugs; Z94.1 Heart transplant status; E87.1 Hypo-osmolality and hyponatremia; E44.0 Moderate protein-calorie malnutrition; D64.9 Anemia, unspecified; R19.5 Other fecal abnormalities; I50.9 Heart failure, unspecified; J44.9 Chronic obstructive pulmonary disease, unspecified; K43.9 Ventral hernia without obstruction or gangrene; K29.70 Gastritis, unspecified, without bleeding; D50.0 Iron deficiency anemia secondary to blood loss (chronic); E03.9 Hypothyroidism, unspecified; E11.22 Type 2 diabetes mellitus with diabetic chronic kidney disease; E78.5 Hyperlipidemia, unspecified; F17.210 Nicotine dependence, cigarettes, uncomplicated; K46.9 Unspecified abdominal hernia without obstruction or gangrene; Z99.2 Dependence on renal dialysis; Z90.49 Acquired absence of other specified parts of digestive tract; Z79.899 Other long term (current) drug therapy; Z79.60 Long term (current) use of unspecified immunomodulators and immunosuppressants; Z78.1 Physical restraint status; Z79.890 Hormone replacement therapy; Z79.83 Long term (current) use of bisphosphonates; E87.5 Hyperkalemia; R74.8 Abnormal levels of other serum enzymes; K57.30 Diverticulosis of large intestine without perforation or abscess without bleeding; L60.3 Nail dystrophy; M81.0 Age-related osteoporosis without current pathological fracture; N28.1 Cyst of kidney, acquired
CPT/HCPCS: 36415; 70450-TC; 71045-TC; 80048-TC; 80053-TC; 80076-TC; 81001; 82140-TC; 82272-TC; 82607-TC; 82962-TC; 83690-TC; 83735-TC; 83921; 84100-TC; 84425; 84443-TC; 84484-TC; 85025-TC; 85027-TC; 85730-TC; 86707; 86850-TC; 87040-TC; 87081-TC; 87350; 90935-TC; 93971-TC; 94760-TC; 94762-TC; 94799-TC; 97110-TC; 97116-TC; 97530-TC; 97535-TC; A4223; G0378; J0885; J1815; J2270; J2405; J2470; J2543; J2704; J3490; J7030; J7040; J7050; J7060; J7512; P9016

== ENCOUNTER 2025-07-31 21:47 | Inpatient (IN) | payer MEDICARE ==
[~2025-07-31] VITALS: Ht 165.1 cm; Wt 48.5 kg
[~2025-07-31 21:47] MED LIST changes: +AMOX-430 PO; -DOXY100C2 PO; +LOPE2TAB23 PO; +METH750T3 PO; +PANT40TA2 PO; -PANT40TA49 PO; -PROP10TA68 PO
[2025-07-31] MEDS: IV NS 0.9% 500 ML BAG IV ONE (23:02)
[2025-07-31 23:09] LABS: PLATELET COUNT (AUTO) 455 K/uL (150-450); RED BLOOD CELL COUNT(AUTO) 3.17 MIL/uL (4.5-6.0); RED CELL DISTRIBUTION WIDTH 16.7 % (11.5-15.0); WHITE BLOOD COUNT (AUTO) 14.0 K/uL (4.3-11.0)
[2025-07-31 23:18] LABS: SERUM AMMONIA 9 umol/L (11-32)
[2025-07-31 23:24] LABS: ALCOHOL, BLOOD < 3 mg/dL (0-10); ASPARTATE AMINOTRANSFERASE 12 U/L (15-37); CALCIUM, SERUM 9.8 mg/dL (8.5-10.1); CREATININE 6.6 mg/dL (0.6-1.3); SODIUM SERUM 137 mmol/L (136-145); TOTAL PROTEIN, SERUM 6.8 g/dL (6.4-8.2); UREA NITROGEN, BLOOD 22 mg/dL (7-18)
[2025-07-31 23:44] LABS: INR 1.02 (0.91-1.10)
[2025-08-01] MEDS ORDERED: LORAZEPAM INJ 2 MG/ML VIAL ONE (01:19)
[2025-08-01] MEDS ORDERED: Z GUARD REMEDY 4 OZ OINT TP PRN (01:30)
[2025-08-01] MEDS ORDERED: ONDANSETRON HCL/PF 4 MG/2 ML VIAL IVP PRN (01:30)
[2025-08-01] MEDS: LORAZEPAM INJ 2 MG/ML VIAL IV PRN (01:30)
[2025-08-01 01:45] VITALS: BP 161/65; TEMP 98.2; O2SAT 99
[2025-08-01] MEDS ORDERED: LORAZEPAM INJ 2 MG/ML VIAL IV PRN (03:30)
[2025-08-01] MEDS ORDERED: METHOCARBAMOL (750MG) 750 MG TABLET PO PRN (03:30)
[2025-08-01] MEDS ORDERED: IPRATROPIUM NEB FS 0.5 MG/2.5 ML AMPUL.NEB NEB PRN (03:30)
[2025-08-01] MEDS ORDERED: LORAZEPAM 1 MG TABLET PO PRN (03:30)
[2025-08-01 04:33] VITALS: TEMP 97.3; O2SAT 95
[2025-08-01] MEDS: LEVOTHYROXINE SODIUM 50 MCG TABLET PO SCH (06:13)
[2025-08-01 07:30] VITALS: BP 159/60; TEMP 97.7; O2SAT 96
[2025-08-01] MEDS: PANTOPRAZOLE 40 MG TABLET.DR PO SCH (07:30)
[2025-08-01 07:34] LABS: APPEARANCE,URINE CLEAR (CLEAR); BLOOD, URINE 1+ Ery/uL (NEGATIVE); LEUKOCYTE ESTERASE ,URINE NEGATIVE (NEGATIVE); NITRITE, URINE NEGATIVE (NEGATIVE); UGLUCOSE TRACE mg/dL (NEGATIVE)
[2025-08-01 07:35] LABS: ADD URINE CULTURE NO; SQUAMOUS EPITHELIAL CELL,UR Few /HPF (None Seen)
[2025-08-01 08:53] LABS: PHOSPHORUS 3.7 mg/dL (2.5-4.9)
[2025-08-01] MEDS: CALCIUM CARB 600MG /VIT D 1 EACH TABLET PO SCH (08:58)
[2025-08-01] MEDS: AMOX/CLAVULANATE 875 MG TABLET PO SCH (08:58)
[2025-08-01] MEDS: PROPRANOLOL HCL 40 MG TABLET PO SCH (08:59)
[2025-08-01] MEDS: AMLODIPINE BESYLATE 5 MG TABLET PO SCH (08:59)
[2025-08-01] MEDS: GEMFIBROZIL 600 MG TABLET PO SCH (08:59)
[2025-08-01] MEDS: SERTRALINE HCL 50 MG TABLET PO SCH (09:00)
[2025-08-01] MEDS ORDERED: Medication Not On Formulary EA (Omega-3 Fatty Acids/Fish Oil (Omega 3 1,000 Mg Softgel) PO SCH (09:00)
[2025-08-01] MEDS: CYANOCOBALAMIN 500 MCG TABLET PO SCH (09:00)
[2025-08-01 16:00] VITALS: BP 131/81; TEMP 98.1; O2SAT 95
[2025-08-01 20:00] VITALS: BP 144/73; TEMP 98.2; O2SAT 100
[2025-08-01] MEDS: ATORVASTATIN 10 MG TABLET PO SCH (21:47)
[2025-08-02] VITALS: BP 129/66; TEMP 97.9; O2SAT 98
[2025-08-02 04:00] VITALS: BP 142/65; TEMP 97.5; O2SAT 97
[2025-08-02 06:26] LABS: PLATELET COUNT (AUTO) 444 K/uL (150-450); RED BLOOD CELL COUNT(AUTO) 3.22 MIL/uL (4.5-6.0); RED CELL DISTRIBUTION WIDTH 17.2 % (11.5-15.0); WHITE BLOOD COUNT (AUTO) 13.2 K/uL (4.3-11.0)
[2025-08-02 06:31] LABS: CALCIUM, SERUM 9.1 mg/dL (8.5-10.1); CREATININE 5.4 mg/dL (0.6-1.3); SODIUM SERUM 141.0 mmol/L (136-145); UREA NITROGEN, BLOOD 14.0 mg/dL (7-18)
[2025-08-02 07:30] VITALS: BP 157/68; TEMP 98.2; O2SAT 96
[2025-08-02] MEDS: DEXTROSE 50%-WATER 50 ML DISP.SYRIN IVP STA (10:12)
[2025-08-02] MEDS: EPOETIN ALFA (10,000 UNIT) 10,000 UNIT/ML VIAL SQ SCH (15:59)
[2025-08-02 16:00] VITALS: BP 137/63; TEMP 98.2; O2SAT 96
[2025-08-02] MEDS ORDERED: DEXTROSE 50%-WATER 50 ML DISP.SYRIN IV PRN (18:00)
[2025-08-02 20:32] VITALS: BP 131/63; TEMP 98.8; O2SAT 98
[2025-08-02] MEDS: BLOOD SUGAR DIAGNOSTIC 1 EACH STRIP IN SCH (21:27)
[2025-08-02] MEDS: INSULIN REGULAR, HUMAN 100 UNIT/ML 3 ML VIAL SQ PRN (21:41)
[2025-08-03 06:41] LABS: PLATELET COUNT (AUTO) 443 K/uL (150-450); RED BLOOD CELL COUNT(AUTO) 3.24 MIL/uL (4.5-6.0); RED CELL DISTRIBUTION WIDTH 16.9 % (11.5-15.0); WHITE BLOOD COUNT (AUTO) 12.1 K/uL (4.3-11.0)
[2025-08-03 06:58] LABS: CALCIUM, SERUM 9.0 mg/dL (8.5-10.1); SODIUM SERUM 138.0 mmol/L (136-145); UREA NITROGEN, BLOOD 25.0 mg/dL (7-18)
[2025-08-03 07:03] LABS: CREATININE 7.7 mg/dL (0.6-1.3)
[2025-08-03 08:36] VITALS: BP 146/64; TEMP 98.5; O2SAT 99
[2025-08-03] MEDS ORDERED: POTASSIUM CHLORIDE 20 MEQ TAB.PRT.SR PO ONE (11:00)
[2025-08-03] MEDS: POTASSIUM CHLORIDE 20 MEQ TAB.PRT.SR PO ONE (11:40)
[2025-08-03 16:08] VITALS: BP 143/67; TEMP 98.2; O2SAT 95
[2025-08-03 19:24] LABS: PLATELET COUNT (AUTO) 448 K/uL (150-450); RED BLOOD CELL COUNT(AUTO) 3.27 MIL/uL (4.5-6.0); RED CELL DISTRIBUTION WIDTH 16.8 % (11.5-15.0); WHITE BLOOD COUNT (AUTO) 14.4 K/uL (4.3-11.0)
[2025-08-03 20:00] VITALS: BP 123/65; TEMP 97.9; O2SAT 98
[2025-08-04] VITALS: BP 138/57; TEMP 98.1; O2SAT 96
[2025-08-04 04:00] VITALS: BP 150/57; TEMP 98.4; O2SAT 96
[2025-08-04 06:45] LABS: PLATELET COUNT (AUTO) 414 K/uL (150-450); RED BLOOD CELL COUNT(AUTO) 3.02 MIL/uL (4.5-6.0); RED CELL DISTRIBUTION WIDTH 16.7 % (11.5-15.0); WHITE BLOOD COUNT (AUTO) 12.3 K/uL (4.3-11.0)
[2025-08-04 07:12] LABS: CALCIUM, SERUM 8.3 mg/dL (8.5-10.1); SODIUM SERUM 138.0 mmol/L (136-145); UREA NITROGEN, BLOOD 27.0 mg/dL (7-18)
[2025-08-04 08:00] VITALS: BP 145/60; TEMP 99; O2SAT 94
[2025-08-04 08:43] LABS: CREATININE 8.3 mg/dL (0.6-1.3)
[2025-08-04 16:00] VITALS: BP 132/55; TEMP 97.9; O2SAT 96
[2025-08-04 20:00] VITALS: BP 137/61; TEMP 97.9; O2SAT 96
[2025-08-04 22:00] VITALS: BP 137/61; TEMP 97.9; O2SAT 96
[2025-08-05 04:00] VITALS: BP 148/67; TEMP 98.1; O2SAT 99
[2025-08-05 06:08] LABS: PLATELET COUNT (AUTO) 388 K/uL (150-450); RED BLOOD CELL COUNT(AUTO) 2.76 MIL/uL (4.5-6.0); RED CELL DISTRIBUTION WIDTH 16.9 % (11.5-15.0); WHITE BLOOD COUNT (AUTO) 12.2 K/uL (4.3-11.0)
[2025-08-05 06:31] LABS: CALCIUM, SERUM 10.0 mg/dL (8.5-10.1); SODIUM SERUM 138.0 mmol/L (136-145); UREA NITROGEN, BLOOD 36.0 mg/dL (7-18)
[2025-08-05 06:33] LABS: CREATININE 9.8 mg/dL (0.6-1.3)
[2025-08-05 08:00] VITALS: BP 151/60; TEMP 98.2; O2SAT 96
[2025-08-05 12:00] VITALS: BP 145/69; TEMP 98.1; O2SAT 99
[2025-08-05 16:00] VITALS: BP 139/60; TEMP 98.8; O2SAT 97
[2025-08-05 20:00] VITALS: BP 131/63; TEMP 97.7; O2SAT 95
[2025-08-06] VITALS: BP 137/61; TEMP 97.6; O2SAT 96
[2025-08-06 04:00] VITALS: BP 129/53; TEMP 98.1; O2SAT 97
[2025-08-06 05:54] LABS: PLATELET COUNT (AUTO) 406 K/uL (150-450); RED BLOOD CELL COUNT(AUTO) 3.25 MIL/uL (4.5-6.0); RED CELL DISTRIBUTION WIDTH 17.5 % (11.5-15.0); WHITE BLOOD COUNT (AUTO) 15.8 K/uL (4.3-11.0)
[2025-08-06 07:03] LABS: CALCIUM, SERUM 9.8 mg/dL (8.5-10.1); CREATININE 6.4 mg/dL (0.6-1.3); PHOSPHORUS 2.7 mg/dL (2.5-4.9); SODIUM SERUM 139.0 mmol/L (136-145); UREA NITROGEN, BLOOD 18.0 mg/dL (7-18)
[2025-08-06 08:00] VITALS: BP 136/56; TEMP 98.4; O2SAT 96
[2025-08-06 15:59] VITALS: BP 128/60; TEMP 98.1; O2SAT 99
[2025-08-06] MEDS: ACETAMINOPHEN 325 MG TABLET PO PRN (18:39)
[2025-08-06 20:00] VITALS: BP 145/63; TEMP 97.7; O2SAT 97
[2025-08-07 08:00] VITALS: BP 156/58; TEMP 98.1; O2SAT 94
[2025-08-07 08:11] LABS: RAPID PLASMA REAGIN QUAL. Non Reactive (Non Reactive)
[2025-08-07 08:19] VITALS: BP 156/58; TEMP 98.1; O2SAT 94
[2025-08-07 14:58] LABS: PLATELET COUNT (AUTO) 377 K/uL (150-450); RED BLOOD CELL COUNT(AUTO) 3.13 MIL/uL (4.5-6.0); RED CELL DISTRIBUTION WIDTH 17.1 % (11.5-15.0); WHITE BLOOD COUNT (AUTO) 12.5 K/uL (4.3-11.0)
[2025-08-07 16:00] VITALS: BP 136/69; TEMP 98.2; O2SAT 98
[2025-08-07 20:00] VITALS: BP 100/56; TEMP 97.7; O2SAT 95
[2025-08-08 06:46] LABS: CALCIUM, SERUM 9.6 mg/dL (8.5-10.1); CREATININE 5.7 mg/dL (0.6-1.3); PLATELET COUNT (AUTO) 407 K/uL (150-450); RED BLOOD CELL COUNT(AUTO) 3.29 MIL/uL (4.5-6.0); RED CELL DISTRIBUTION WIDTH 17.4 % (11.5-15.0); SODIUM SERUM 139.0 mmol/L (136-145); UREA NITROGEN, BLOOD 21.0 mg/dL (7-18); WHITE BLOOD COUNT (AUTO) 13.3 K/uL (4.3-11.0)
[2025-08-08 08:00] VITALS: BP 134/91; TEMP 98; O2SAT 94
[2025-08-08 08:09] VITALS: BP 134/91; TEMP 98; O2SAT 99
[2025-08-08 15:51] VITALS: BP 133/61; TEMP 97.9; O2SAT 94
[2025-08-08 15:55] VITALS: BP 133/61; TEMP 97.9; O2SAT 94
[2025-08-08 20:00] VITALS: BP 131/58; TEMP 97.9; O2SAT 95
[2025-08-08 22:00] VITALS: BP 131/58; TEMP 97.9; O2SAT 95
[2025-08-09 06:16] LABS: PLATELET COUNT (AUTO) 426 K/uL (150-450); RED BLOOD CELL COUNT(AUTO) 3.40 MIL/uL (4.5-6.0); RED CELL DISTRIBUTION WIDTH 17.1 % (11.5-15.0); WHITE BLOOD COUNT (AUTO) 18.6 K/uL (4.3-11.0)
[2025-08-09 06:38] LABS: ASPARTATE AMINOTRANSFERASE 8 U/L (15-37); CALCIUM, SERUM 9.9 mg/dL (8.5-10.1); CREATININE 4.3 mg/dL (0.6-1.3); PHOSPHORUS 2.3 mg/dL (2.5-4.9); SODIUM SERUM 140 mmol/L (136-145); TOTAL PROTEIN, SERUM 7.4 g/dL (6.4-8.2); UREA NITROGEN, BLOOD 13 mg/dL (7-18)
[2025-08-09 08:00] VITALS: BP 134/67; TEMP 98.6; O2SAT 97
[2025-08-09 16:51] VITALS: BP 113/53; TEMP 97.9; O2SAT 95
[2025-08-09 20:00] VITALS: BP 126/62; TEMP 97.9; O2SAT 96
[2025-08-09 20:21] LABS: IRON, SERUM 30 ug/dl (50-175)
[2025-08-10 03:44] LABS: OCCULT BLOOD STOOL NEGATIVE (NEGATIVE)
[2025-08-10 06:14] LABS: PLATELET COUNT (AUTO) 417 K/uL (150-450); RED BLOOD CELL COUNT(AUTO) 3.39 MIL/uL (4.5-6.0); RED CELL DISTRIBUTION WIDTH 18.1 % (11.5-15.0); WHITE BLOOD COUNT (AUTO) 21.3 K/uL (4.3-11.0)
[2025-08-10 06:18] LABS: CALCIUM, SERUM 9.7 mg/dL (8.5-10.1); CREATININE 6.7 mg/dL (0.6-1.3); SODIUM SERUM 137.0 mmol/L (136-145); UREA NITROGEN, BLOOD 28.0 mg/dL (7-18)
[2025-08-10] MEDS ORDERED: CT SWABBABLE VALVE TRANS SET 1 EA INFUS.SET MC ONE (12:46)
[2025-08-10] MEDS ORDERED: IOHEXOL-300 100 ML VIAL IV ONE (12:46)
[2025-08-10] MEDS ORDERED: IV NS 0.9% 250 ML IV ONE (12:46)
[2025-08-10 16:12] VITALS: BP 121/77; TEMP 97.3; O2SAT 96
[2025-08-10] MEDS: FERROUS SULFATE (325 MG) 325 MG/TAB TABLET PO SCH (16:42)
[2025-08-10 20:00] VITALS: BP 116/68; TEMP 97.5; O2SAT 98
[2025-08-11 02:09] LABS: CARCINOEMBRYONIC ANTIGEN (CEA) 3.0 ng/mL (0.0-4.7)
[2025-08-11 04:07] LABS: FREE KAPPA LT CHAINS SERUM 275.2 mg/L (3.3-19.4); FREE LAMBDA LT CHAIN SERUM 279.6 mg/L (5.7-26.3); KAPPA/LAMBDA RATIO SERUM 0.98 (0.26-1.65)
[2025-08-11 06:07] LABS: IMMUNOGLOBULIN A, SERUM 369 mg/dL (61-437); IMMUNOGLOBULIN M, SERUM 76 mg/dL (20-172)
[2025-08-11 07:27] LABS: PLATELET COUNT (AUTO) 434 K/uL (150-450); RED BLOOD CELL COUNT(AUTO) 3.41 MIL/uL (4.5-6.0); RED CELL DISTRIBUTION WIDTH 17.6 % (11.5-15.0); WHITE BLOOD COUNT (AUTO) 13.8 K/uL (4.3-11.0)
[2025-08-11 08:00] VITALS: BP 125/52; TEMP 98.2; O2SAT 95
[2025-08-11 08:10] LABS: FOLIC ACID 4.9 ng/mL (>3.0)
[2025-08-11 08:12] LABS: CALCIUM, SERUM 8.8 mg/dL (8.5-10.1); CREATININE 5.4 mg/dL (0.6-1.3); SODIUM SERUM 139.0 mmol/L (136-145); UREA NITROGEN, BLOOD 21.0 mg/dL (7-18)
[2025-08-11] MEDS: GUAIFENESIN/CODEINE 10 ML UDC PO PRN (12:28)
[2025-08-11] MEDS: LOPERAMIDE HCL (2 MG CAP) 2 MG CAPSULE PO PRN (14:02)
[2025-08-11 16:00] VITALS: BP 132/68; TEMP 98.1; O2SAT 94
[2025-08-11 20:00] VITALS: BP 133/65; TEMP 98.8; O2SAT 95
[2025-08-12 07:23] LABS: PLATELET COUNT (AUTO) 463 K/uL (150-450); RED BLOOD CELL COUNT(AUTO) 3.60 MIL/uL (4.5-6.0); RED CELL DISTRIBUTION WIDTH 18.3 % (11.5-15.0); WHITE BLOOD COUNT (AUTO) 19.3 K/uL (4.3-11.0)
[2025-08-12 07:30] VITALS: BP 139/57; TEMP 98.4; O2SAT 97
[2025-08-12 08:01] LABS: CREATININE 7.3 mg/dL (0.6-1.3); SODIUM SERUM 142.0 mmol/L (136-145); UREA NITROGEN, BLOOD 31.0 mg/dL (7-18)
[2025-08-12 08:37] LABS: CALCIUM, SERUM 8.7 mg/dL (8.5-10.1)
[2025-08-12] MEDS: LOPERAMIDE HCL (2 MG CAP) 2 MG CAPSULE PO PRN (15:10)
[2025-08-12 16:00] VITALS: BP 134/59; TEMP 98.2; O2SAT 93
[2025-08-12 20:00] VITALS: BP 119/61; TEMP 98.1; O2SAT 100
[2025-08-12 20:09] VITALS: BP 119/61; TEMP 98.1; O2SAT 100
[2025-08-13 06:24] LABS: PLATELET COUNT (AUTO) 488 K/uL (150-450); RED BLOOD CELL COUNT(AUTO) 3.86 MIL/uL (4.5-6.0); RED CELL DISTRIBUTION WIDTH 17.9 % (11.5-15.0); WHITE BLOOD COUNT (AUTO) 17.7 K/uL (4.3-11.0)
[2025-08-13 06:29] LABS: CALCIUM, SERUM 9.1 mg/dL (8.5-10.1); CREATININE 4.8 mg/dL (0.6-1.3); SODIUM SERUM 138.0 mmol/L (136-145); UREA NITROGEN, BLOOD 15.0 mg/dL (7-18)
[2025-08-13 08:00] VITALS: BP 138/67; TEMP 97.8; O2SAT 94
[2025-08-13] MEDS: LEVOFLOXACIN 500 MG /D5W 100ML 500 MG in PREMIX 1 EA IV ONE (10:50)
[2025-08-13] MEDS: METRONIDAZOLE 500 MG TABLET PO SCH (12:20)
[2025-08-13 16:00] VITALS: BP 102/60; TEMP 98.4; O2SAT 96
[2025-08-13 20:00] VITALS: BP 121/62; TEMP 97.9; O2SAT 95
[2025-08-14 02:44] LABS: OCCULT BLOOD STOOL NEGATIVE (NEGATIVE)
[2025-08-14 07:11] LABS: PLATELET COUNT (AUTO) 494 K/uL (150-450); RED BLOOD CELL COUNT(AUTO) 3.74 MIL/uL (4.5-6.0); RED CELL DISTRIBUTION WIDTH 18.1 % (11.5-15.0); WHITE BLOOD COUNT (AUTO) 13.7 K/uL (4.3-11.0)
[2025-08-14 08:03] VITALS: BP 104/60; TEMP 97.7; O2SAT 96
[2025-08-14 08:09] LABS: CALCIUM, SERUM 8.7 mg/dL (8.5-10.1); CREATININE 7.3 mg/dL (0.6-1.3); SODIUM SERUM 135.0 mmol/L (136-145); UREA NITROGEN, BLOOD 33.0 mg/dL (7-18)
[2025-08-14 13:12] LABS: *THYROGLOBULIN <1.0 IU/mL (0.0-0.9)
[2025-08-14 16:12] LABS: THYROGLOBULIN BY IMA 13.4 ng/mL (1.4-29.2)
[2025-08-14 16:37] VITALS: BP 106/64; TEMP 97.6; O2SAT 94
[2025-08-14 20:00] VITALS: BP 121/66; TEMP 97.9; O2SAT 94
[2025-08-14 23:05] VITALS: BP 119/66; TEMP 97.9; O2SAT 96
[2025-08-15 06:35] LABS: PLATELET COUNT (AUTO) 527 K/uL (150-450); RED BLOOD CELL COUNT(AUTO) 3.89 MIL/uL (4.5-6.0); RED CELL DISTRIBUTION WIDTH 18.0 % (11.5-15.0); WHITE BLOOD COUNT (AUTO) 14.0 K/uL (4.3-11.0)
[2025-08-15 06:49] LABS: CALCIUM, SERUM 9.3 mg/dL (8.5-10.1); CREATININE 5.4 mg/dL (0.6-1.3); SODIUM SERUM 140.0 mmol/L (136-145); UREA NITROGEN, BLOOD 20.0 mg/dL (7-18)
[2025-08-15 08:00] VITALS: BP 121/65; TEMP 98.4; O2SAT 94
[2025-08-15] MEDS: LEVOFLOXACIN 250 MG /D5W 50 ML 250 MG in PREMIX 1 EA IV SCH (09:07)
[2025-08-15] MEDS: POTASSIUM CHLORIDE 20 MEQ TAB.PRT.SR PO ONE (13:53)
[2025-08-15 16:50] VITALS: BP_SYST 102; BP_SYST 124; BP_DIAS 57; BP_DIAS 66; BP_DIAS 79; TEMP 97.7; TEMP 98.1; O2SAT 95; O2SAT 96
[2025-08-15 20:00] VITALS: BP 113/62; TEMP 98.1; O2SAT 95
[2025-08-16 06:17] LABS: PLATELET COUNT (AUTO) 535 K/uL (150-450); RED BLOOD CELL COUNT(AUTO) 3.87 MIL/uL (4.5-6.0); RED CELL DISTRIBUTION WIDTH 17.9 % (11.5-15.0); WHITE BLOOD COUNT (AUTO) 16.5 K/uL (4.3-11.0)
[2025-08-16 06:18] LABS: CALCIUM, SERUM 9.6 mg/dL (8.5-10.1); SODIUM SERUM 139.0 mmol/L (136-145); UREA NITROGEN, BLOOD 38.0 mg/dL (7-18)
[2025-08-16 06:40] LABS: CREATININE 7.8 mg/dL (0.6-1.3)
[2025-08-16 07:30] VITALS: BP 130/74; TEMP 97.7; O2SAT 97
[2025-08-16] MEDS ORDERED: LEVO500T90 PO (10:09)
[2025-08-16] MEDS ORDERED: METR500T PO (10:09)
[2025-08-16 16:00] VITALS: BP 122/65; TEMP 97.5; O2SAT 98
[2025-08-16 20:00] VITALS: BP 103/62; TEMP 98.3; O2SAT 96
[2025-08-17 06:06] LABS: PLATELET COUNT (AUTO) 546 K/uL (150-450); RED BLOOD CELL COUNT(AUTO) 4.28 MIL/uL (4.5-6.0); RED CELL DISTRIBUTION WIDTH 17.7 % (11.5-15.0); WHITE BLOOD COUNT (AUTO) 19.6 K/uL (4.3-11.0)
[2025-08-17 08:00] VITALS: BP 104/60; TEMP 98.1; O2SAT 98
[2025-08-17 08:15] VITALS: BP 104/60
== END 2025-08-17 16:12 | DRG 811 ==
LOC: ER 21:52 → TELE1 08-01 00:51 → TELE 08-01 01:46 → MED 08-06 10:49
PROVIDERS: ADMIT Registered Nurse Psychiatric/Mental Health; ATTEND Internal Medicine
PROC: 5A1D70Z Performance of Urinary Filtration, Intermittent, Less than 6 Hours Per Day (ICD-10-PCS; principal; 2025-08-01)
DX: D46.9 Myelodysplastic syndrome, unspecified (principal); G92.8 Other toxic encephalopathy; N18.6 End stage renal disease; I13.2 Hypertensive heart and chronic kidney disease with heart failure and with stage 5 chronic kidney disease, or end stage renal disease; E44.0 Moderate protein-calorie malnutrition; Z94.1 Heart transplant status; Z68.1 Body mass index [BMI] 19.9 or less, adult; R64 Cachexia; A04.9 Bacterial intestinal infection, unspecified; J90 Pleural effusion, not elsewhere classified; R53.1 Weakness; Z99.2 Dependence on renal dialysis; E11.22 Type 2 diabetes mellitus with diabetic chronic kidney disease; E03.9 Hypothyroidism, unspecified; I50.9 Heart failure, unspecified; D50.9 Iron deficiency anemia, unspecified; E78.5 Hyperlipidemia, unspecified; E88.09 Other disorders of plasma-protein metabolism, not elsewhere classified; E87.6 Hypokalemia; Z79.01 Long term (current) use of anticoagulants; E05.90 Thyrotoxicosis, unspecified without thyrotoxic crisis or storm; Z20.822 Contact with and (suspected) exposure to COVID-19; K29.70 Gastritis, unspecified, without bleeding; K42.9 Umbilical hernia without obstruction or gangrene; E83.89 Other disorders of mineral metabolism; M62.58 Muscle wasting and atrophy, not elsewhere classified, other site; M81.0 Age-related osteoporosis without current pathological fracture; R91.1 Solitary pulmonary nodule; N28.1 Cyst of kidney, acquired; E07.89 Other specified disorders of thyroid; Z87.891 Personal history of nicotine dependence; E11.649 Type 2 diabetes mellitus with hypoglycemia without coma; Z79.60 Long term (current) use of unspecified immunomodulators and immunosuppressants; T38.0X5A Adverse effect of glucocorticoids and synthetic analogues, initial encounter; Y92.009 Unspecified place in unspecified non-institutional (private) residence as the place of occurrence of the external cause; J43.9 Emphysema, unspecified; R26.81 Unsteadiness on feet
CPT/HCPCS: 36415; 70450-TC; 71045-TC; 71260-TC; 76536-TC; 80048-TC; 80053-TC; 80076-TC; 81001; 82140-TC; 82272-TC; 82378; 82607-TC; 82728-TC; 82784; 82962-TC; 83540-TC; 83615-TC; 83735-TC; 84100-TC; 84155; 84165; 84443-TC; 84484-TC; 85025-TC; 85730-TC; 86334; 86592; 86593; 87040-TC; 87081-TC; 90935-TC; 92526; 92611; 97110-TC; 97116-TC; 97530-TC; 97535-TC; A4216; A4223; A6403; G0378; G0480; J0885; J1815; J1956; J2060; J7030; J7050; J7512; Q0163; Q9967

== ENCOUNTER 2025-09-30 18:08 | Inpatient (IN) | payer MEDICARE ==
[~2025-09-30] VITALS: Ht 165.1 cm; Wt 48.5 kg
[~2025-09-30 18:08] MED LIST changes: +LEVO500T90 PO; +METR500T PO; -OMEP40CA21 PO
[2025-09-30] MEDS ORDERED: ONDANSETRON HCL/PF 4 MG/2 ML VIAL ONE (18:40)
[2025-09-30] MEDS ORDERED: MORPHINE SULFATE INJ 4 MG/ML DISP.SYRIN ONE (18:41)
[2025-09-30] MEDS: IV NS 0.9% 500 ML BAG IV ONE (18:50)
[2025-09-30] MEDS: MORPHINE SULFATE INJ 2 MG/ML DISP.SYRIN IV ONE (18:50)
[2025-09-30] MEDS: ONDANSETRON HCL/PF 4 MG/2 ML VIAL IVP ONE (18:50)
[2025-09-30 19:04] LABS: PLATELET COUNT (AUTO) 285 K/uL (150-450); RED BLOOD CELL COUNT(AUTO) 4.15 MIL/uL (4.5-6.0); RED CELL DISTRIBUTION WIDTH 19.6 % (11.5-15.0); WHITE BLOOD COUNT (AUTO) 29.9 K/uL (4.3-11.0)
[2025-09-30 19:15] LABS: INR 1.25 (0.91-1.10)
[2025-09-30 19:30] LABS: LACTIC ACID 1.6 mmol/L (0.4-2.0)
[2025-09-30] MEDS ORDERED: PIPERACI/TAZO 3.375GM/D5W 50ML PB IV ONE (19:32)
[2025-09-30 19:35] LABS: CALCIUM, SERUM 8.8 mg/dL (8.5-10.1); CREATININE 6.6 mg/dL (0.6-1.3); SODIUM SERUM 140.0 mmol/L (136-145); UREA NITROGEN, BLOOD 44.0 mg/dL (7-18)
[2025-09-30] MEDS: PIPERACILLIN /TAZOBACTAM 3.375 G in IV D5W 50 ML IV ONE (19:35)
[2025-09-30 19:40] LABS: ASPARTATE AMINOTRANSFERASE 11.0 U/L (15-37); TOTAL PROTEIN, SERUM 7.9 g/dL (6.4-8.2)
[2025-09-30] MEDS ORDERED: HYDROCODONE/APAP 10/325MG TABLET PO PRN (21:30)
[2025-09-30] MEDS ORDERED: MAG HYDROX/AL HYDROX/SIMETH 30 ML UDC PO PRN (21:30)
[2025-09-30] MEDS ORDERED: DEXTROSE 50%-WATER 50 ML DISP.SYRIN IV PRN (21:30)
[2025-09-30] MEDS ORDERED: IPRATROPIUM NEB FS 0.5 MG/2.5 ML AMPUL.NEB NEB PRN (21:30)
[2025-09-30] MEDS ORDERED: ALBUTEROL FS 2.5 MG/3 ML VIAL.NEB NEB PRN (21:30)
[2025-09-30] MEDS ORDERED: MAGNESIUM HYDROXIDE 30 ML UDC PO PRN (21:30)
[2025-09-30] MEDS ORDERED: HOME MED MISCELLANEOUS XX SCH (21:30)
[2025-09-30] MEDS ORDERED: ONDANSETRON HCL/PF 4 MG/2 ML VIAL IVP PRN (21:30)
[2025-09-30] MEDS ORDERED: DOSING PER PHARMACY-ZOSYN IV 1 EA EA XX PRN (21:30)
[2025-09-30] MEDS ORDERED: ACETAMINOPHEN 325 MG TABLET PO PRN (21:30)
[2025-09-30 21:47] LABS: BAND % (MANUAL) 1 % (0.0-5.0); EOSINOPHILS % (MANUAL) 1 % (0-4); LYMPHOCYTES % (MANUAL) 8 % (16-48); MONOCYTES % (MANUAL) 5 % (0-11.0); NEUTROPHILS % (MANUAL) 85 (42-76); PLATELET ESTIMATE ADEQUATE
[2025-09-30 23:00] VITALS: BP 162/80; TEMP 97.7; O2SAT 98
[2025-09-30] MEDS: ATORVASTATIN 10 MG TABLET PO SCH (23:23)
[2025-09-30] MEDS: BLOOD SUGAR DIAGNOSTIC 1 EACH STRIP IN SCH (23:36)
[2025-09-30] MEDS: INSULIN REGULAR, HUMAN 100 UNIT/ML 3 ML VIAL SQ PRN (23:36)
[2025-09-30 23:41] LABS: OCCULT BLOOD STOOL POSITIVE (NEGATIVE)
[2025-10-01 06:45] LABS: PLATELET COUNT (AUTO) 218 K/uL (150-450); RED BLOOD CELL COUNT(AUTO) 2.91 MIL/uL (4.5-6.0); RED CELL DISTRIBUTION WIDTH 19.1 % (11.5-15.0); WHITE BLOOD COUNT (AUTO) 20.4 K/uL (4.3-11.0)
[2025-10-01 07:06] LABS: LDL 43.0 mg/dL (0-99)
[2025-10-01 07:11] LABS: CALCIUM, SERUM 8.1 mg/dL (8.5-10.1); CREATININE 7.1 mg/dL (0.6-1.3); PHOSPHORUS 6.3 mg/dL (2.5-4.9); SODIUM SERUM 139.0 mmol/L (136-145); UREA NITROGEN, BLOOD 58.0 mg/dL (7-18)
[2025-10-01] MEDS: CALCIUM ACETATE 667 MG CAP/TAB PO SCH (07:51)
[2025-10-01] MEDS: PANTOPRAZOLE 40 MG TABLET.DR PO SCH (07:51)
[2025-10-01] MEDS ORDERED: ATOR20TA PO (08:20)
[2025-10-01] MEDS ORDERED: NUT.237L67 PO (08:20)
[2025-10-01] MEDS ORDERED: FOLI0.8T23 PO (08:20)
[2025-10-01] MEDS ORDERED: ONDA-97 PO (08:20)
[2025-10-01] MEDS ORDERED: METH500T6 PO (08:20)
[2025-10-01] MEDS ORDERED: ACET325T53 PO (08:20)
[2025-10-01] MEDS ORDERED: ASCO500T20 PO ×2 (08:20)
[2025-10-01] MEDS ORDERED: IPRA3AMP23 IH (08:20)
[2025-10-01] MEDS ORDERED: APIX2.5T PO (08:20)
[2025-10-01] MEDS ORDERED: AMIN30LI2 PO (08:20)
[2025-10-01] MEDS ORDERED: SUCR500T PO (08:20)
[2025-10-01] MEDS ORDERED: PANT40TA49 PO (08:20)
[2025-10-01] MEDS ORDERED: SIRO1TAB6 PO (08:20)
[2025-10-01] MEDS ORDERED: L. A1TAB10 PO (08:20)
[2025-10-01] MEDS ORDERED: CALC667T2 PO (08:20)
[2025-10-01] MEDS ORDERED: FURO40TA5 PO (08:20)
[2025-10-01] MEDS ORDERED: HYDR-3980 PO (08:20)
[2025-10-01 08:48] VITALS: BP 125/60; TEMP 97.7; O2SAT 96
[2025-10-01] MEDS: GEMFIBROZIL 600 MG TABLET PO SCH (09:00)
[2025-10-01] MEDS: SODIUM BICARBONATE 650 MG TABLET PO SCH (09:00)
[2025-10-01] MEDS: SERTRALINE HCL 50 MG TABLET PO SCH (09:00)
[2025-10-01] MEDS: VIT B CMPLX 3/FA/VIT C/BIOTIN 1 TAB TABLET PO SCH (09:00)
[2025-10-01] MEDS: PIPERACILLIN /TAZOBACTAM 2.25 G in IV D5W 50 ML IV SCH (09:00)
[2025-10-01] MEDS: ASCORBIC ACID 500 MG TABLET PO SCH (09:01)
[2025-10-01] MEDS: ACIDOPHILUS/BULGARICUS 1 EACH TAB.CHEW PO SCH (09:01)
[2025-10-01] MEDS: PROPRANOLOL HCL 40 MG TABLET PO SCH (09:01)
[2025-10-01] MEDS: FUROSEMIDE 40 MG TABLET PO SCH (09:01)
[2025-10-01 16:43] VITALS: BP 109/68; TEMP 97.9; O2SAT 97
[2025-10-01 17:38] LABS: PLATELET COUNT (AUTO) 204 K/uL (150-450); RED BLOOD CELL COUNT(AUTO) 2.86 MIL/uL (4.5-6.0); RED CELL DISTRIBUTION WIDTH 19.0 % (11.5-15.0); WHITE BLOOD COUNT (AUTO) 11.7 K/uL (4.3-11.0)
[2025-10-01 20:00] VITALS: BP 105/53; TEMP 97.9; O2SAT 97
[2025-10-01] MEDS: VANCOMYCIN HCL 250 MG CAPSULE PO SCH (23:23)
[2025-10-02] VITALS (8 sets, daily range): BP systolic 108–146; BP diastolic 56–76; TEMP 97.6–98; O2SAT 96–98
[2025-10-02 06:34] LABS: PLATELET COUNT (AUTO) 213 K/uL (150-450); RED BLOOD CELL COUNT(AUTO) 2.54 MIL/uL (4.5-6.0); RED CELL DISTRIBUTION WIDTH 18.7 % (11.5-15.0); WHITE BLOOD COUNT (AUTO) 7.3 K/uL (4.3-11.0)
[2025-10-02 06:59] LABS: CALCIUM, SERUM 8.1 mg/dL (8.5-10.1); CREATININE 4.7 mg/dL (0.6-1.3); SODIUM SERUM 138.0 mmol/L (136-145); UREA NITROGEN, BLOOD 27.0 mg/dL (7-18)
[2025-10-02] MEDS: PANTOPRAZOLE 40 MG VIAL IV SCH (09:31)
[2025-10-02] MEDS: PIPERACILLIN /TAZOBACTAM 2.25 G in IV D5W 50 ML IV SCH (12:29)
[2025-10-03 07:48] LABS: PLATELET COUNT (AUTO) 244 K/uL (150-450); RED BLOOD CELL COUNT(AUTO) 3.26 MIL/uL (4.5-6.0); RED CELL DISTRIBUTION WIDTH 17.6 % (11.5-15.0); WHITE BLOOD COUNT (AUTO) 6.0 K/uL (4.3-11.0)
[2025-10-03 08:00] VITALS: BP 145/58; TEMP 97.7; O2SAT 99
[2025-10-03 08:02] LABS: CALCIUM, SERUM 8.2 mg/dL (8.5-10.1); CREATININE 6.4 mg/dL (0.6-1.3); SODIUM SERUM 141.0 mmol/L (136-145); UREA NITROGEN, BLOOD 29.0 mg/dL (7-18)
[2025-10-03] MEDS: Z GUARD REMEDY 4 OZ OINT TP PRN (08:52)
[2025-10-03 16:00] VITALS: BP 139/71; TEMP 97.6; O2SAT 98
[2025-10-03 20:00] VITALS: BP 126/66; TEMP 97.5; O2SAT 97
[2025-10-04] MEDS ORDERED: VANCOMYCIN HCL 250 MG CAPSULE PO ONE ×2 (00:24→06:11)
[2025-10-04 07:32] LABS: PLATELET COUNT (AUTO) 240 K/uL (150-450); RED BLOOD CELL COUNT(AUTO) 3.27 MIL/uL (4.5-6.0); RED CELL DISTRIBUTION WIDTH 17.4 % (11.5-15.0); WHITE BLOOD COUNT (AUTO) 6.1 K/uL (4.3-11.0)
[2025-10-04 08:12] LABS: CREATININE 4.5 mg/dL (0.6-1.3); SODIUM SERUM 136.0 mmol/L (136-145); UREA NITROGEN, BLOOD 21.0 mg/dL (7-18)
[2025-10-04] MEDS: PANTOPRAZOLE 40 MG TABLET.DR PO SCH (08:31)
[2025-10-04 08:40] LABS: CALCIUM, SERUM 7.7 mg/dL (8.5-10.1)
[2025-10-04 08:48] VITALS: BP 147/64; TEMP 98.1; O2SAT 94
[2025-10-04] MEDS: SIROLIMUS 1 MG PO SCH (08:53)
[2025-10-04] MEDS: POTASSIUM CHLORIDE 20 MEQ TAB.PRT.SR PO SCH (09:58)
[2025-10-04] MEDS: VANCOMYCIN HCL 125 MG CAPSULE PO SCH (12:44)
[2025-10-04 17:59] LABS: CALCIUM, SERUM 8.3 mg/dL (8.5-10.1); CREATININE 5.7 mg/dL (0.6-1.3); SODIUM SERUM 139.0 mmol/L (136-145); UREA NITROGEN, BLOOD 27.0 mg/dL (7-18)
[2025-10-04 20:00] VITALS: BP 130/64; TEMP 98.1; O2SAT 98
[2025-10-04 21:43] VITALS: BP 130/64; TEMP 98.1; O2SAT 98
[2025-10-05 07:28] LABS: PLATELET COUNT (AUTO) 269 K/uL (150-450); RED BLOOD CELL COUNT(AUTO) 3.34 MIL/uL (4.5-6.0); RED CELL DISTRIBUTION WIDTH 17.5 % (11.5-15.0); WHITE BLOOD COUNT (AUTO) 6.7 K/uL (4.3-11.0)
[2025-10-05 07:37] LABS: CALCIUM, SERUM 8.4 mg/dL (8.5-10.1); CREATININE 6.7 mg/dL (0.6-1.3); SODIUM SERUM 141.0 mmol/L (136-145); UREA NITROGEN, BLOOD 35.0 mg/dL (7-18)
[2025-10-05 08:00] VITALS: BP 147/69; TEMP 97.7; O2SAT 95
[2025-10-05] MEDS: CHOLESTYRAMINE/ASPARTAME 4 G/PKT PACKET PO SCH (10:10)
[2025-10-05 16:00] VITALS: BP 149/66; TEMP 98.1; O2SAT 100
[2025-10-05 20:00] VITALS: BP 150/97; TEMP 97.5; O2SAT 100
[2025-10-06 08:00] VITALS: BP 149/59; TEMP 98.1; O2SAT 98
[2025-10-06 08:54] VITALS: BP 149/59
[2025-10-06] MEDS: EPOETIN ALFA (10,000 UNIT) 10,000 UNIT/ML VIAL SQ SCH (13:10)
[2025-10-06] MEDS ORDERED: CHOL4PAC4 PO (15:38)
== END 2025-10-06 16:14 | disposition home health service (06) | DRG 377 ==
LOC: ER 18:15 → TELE 21:26 → MED 23:27
PROVIDERS: ADMIT Nurse Practitioner Acute Care; ATTEND Internal Medicine
PROC: 5A1D70Z Performance of Urinary Filtration, Intermittent, Less than 6 Hours Per Day (ICD-10-PCS; principal; 2025-10-01)
PROC: 30233N1 Transfusion of Nonautologous Red Blood Cells into Peripheral Vein, Percutaneous Approach (ICD-10-PCS; 2025-10-02)
DX: K92.2 Gastrointestinal hemorrhage, unspecified (principal); N18.6 End stage renal disease; I13.2 Hypertensive heart and chronic kidney disease with heart failure and with stage 5 chronic kidney disease, or end stage renal disease; R64 Cachexia; Z94.1 Heart transplant status; E44.0 Moderate protein-calorie malnutrition; D63.8 Anemia in other chronic diseases classified elsewhere; Z99.2 Dependence on renal dialysis; E11.22 Type 2 diabetes mellitus with diabetic chronic kidney disease; F32.A Depression, unspecified; E03.9 Hypothyroidism, unspecified; J44.9 Chronic obstructive pulmonary disease, unspecified; Q61.3 Polycystic kidney, unspecified; A09 Infectious gastroenteritis and colitis, unspecified; Z68.1 Body mass index [BMI] 19.9 or less, adult; D72.829 Elevated white blood cell count, unspecified; E78.5 Hyperlipidemia, unspecified; K40.90 Unilateral inguinal hernia, without obstruction or gangrene, not specified as recurrent; M62.50 Muscle wasting and atrophy, not elsewhere classified, unspecified site; R53.1 Weakness; M81.0 Age-related osteoporosis without current pathological fracture; K42.9 Umbilical hernia without obstruction or gangrene; F41.9 Anxiety disorder, unspecified; I50.9 Heart failure, unspecified
CPT/HCPCS: 36415; 71045-TC; 80048-TC; 80061-TC; 80076-TC; 82272-TC; 82962-TC; 83605-TC; 83690-TC; 83735-TC; 84100-TC; 85025-TC; 85027-TC; 85730-TC; 86803; 86850-TC; 87040-TC; 87045-TC; 87081-TC; 87340; 90935-TC; A4223; G0378; J0885; J1815; J2270; J2405; J2470; J2543; J7030; J7050; J7060; J7512; P9016

== ENCOUNTER 2025-11-06 08:15 | Inpatient (IN) | payer MEDICARE ==
[~2025-11-06] VITALS: Ht 165.1 cm; Wt 45.4 kg
[~2025-11-06 08:15] MED LIST changes: +ACET325T53 PO; -ALEN70TA80 PO; -ALPR0.5T PO; +AMIN30LI2 PO; -AMLO5TAB4 PO; -AMOX-430 PO; +APIX2.5T PO; +ASCO500T20 PO; +ATOR20TA PO; -CALC-1198 PO; +CALC667T2 PO; +CHOL4PAC4 PO; -CYAN25003 SL; -FEXO-65 PO; +FOLI0.8T23 PO; +FURO40TA5 PO; +HYDR-3980 PO; +IPRA3AMP23 IH; +L. A1TAB10 PO; -LEVO500T90 PO; -LEVO50TA PO; +METH500T6 PO; -METH750T3 PO; -METR500T PO; +NUT.237L67 PO; -OMEG1CAP40 PO; +ONDA-97 PO; -PANT40TA2 PO; +PANT40TA49 PO; -PRAV80TA21 PO; +SIRO1TAB6 PO; +SUCR500T PO; -TIOT18CA3 IH
[2025-11-06] MEDS ORDERED: CEFTRIAXONE 1GM BAG (ER ONLY) 50 ML IV ONE (08:48)
[2025-11-06] MEDS ORDERED: Magnesium 1GM/D5W 100ML PREMIX 100 ML IV ONE (08:49)
[2025-11-06] MEDS: IV NS 0.9% 500 ML BAG IV ONE (09:03)
[2025-11-06] MEDS: CEFTRIAXONE 1 G in IV D5W 50 ML IV ONE (09:04)
[2025-11-06 09:10] LABS: PLATELET COUNT (AUTO) 329 K/uL (150-450); RED BLOOD CELL COUNT(AUTO) 3.70 MIL/uL (4.5-6.0); RED CELL DISTRIBUTION WIDTH 21.3 % (11.5-15.0); WHITE BLOOD COUNT (AUTO) 12.4 K/uL (4.3-11.0)
[2025-11-06] MEDS ORDERED: ALBUTEROL FS 2.5 MG/3 ML VIAL.NEB ONE (09:12)
[2025-11-06] MEDS ORDERED: IPRATROPIUM NEB FS 0.5 MG/2.5 ML AMPUL.NEB ONE (09:13)
[2025-11-06 09:14] VITALS: O2SAT 100
[2025-11-06] MEDS: Magnesium 1GM/D5W 100ML PREMIX 200 ML IV ONE (09:14)
[2025-11-06 09:18] LABS: CALCIUM, SERUM 8.4 mg/dL (8.5-10.1); SODIUM SERUM 138 mmol/L (136-145); UREA NITROGEN, BLOOD 71 mg/dL (7-18)
[2025-11-06] MEDS: IPRATROPIUM NEB FS 0.5 MG/2.5 ML AMPUL.NEB NEB ONE (09:20)
[2025-11-06] MEDS: ALBUTEROL FS 2.5 MG/3 ML VIAL.NEB NEB ONE (09:20)
[2025-11-06 09:21] LABS: CREATININE 8.1 mg/dL (0.6-1.3)
[2025-11-06 09:26] LABS: LACTIC ACID 0.9 mmol/L (0.4-2.0)
[2025-11-06 09:40] VITALS: O2SAT 100
[2025-11-06] MEDS: AZITHROMYCIN 500 MG in IV D5W 250 ML IV ONE (09:52)
[2025-11-06] MEDS: DOXYCYCLINE 100 MG in IV D5W 100 ML IV ONE (10:09)
[2025-11-06 10:15] VITALS: O2SAT 100
[2025-11-06] MEDS: ALBUTEROL FS 2.5 MG/0.5 ML VIAL.NEB NEB SCH (11:30)
[2025-11-06] MEDS: IPRATROPIUM NEB FS 0.5 MG/2.5 ML AMPUL.NEB NEB SCH (11:30)
[2025-11-06] MEDS ORDERED: MAGNESIUM HYDROXIDE 30 ML UDC PO PRN (12:00)
[2025-11-06] MEDS ORDERED: ZOLPIDEM TARTRATE 5 MG TABLET PO PRN (12:00)
[2025-11-06] MEDS ORDERED: ONDANSETRON HCL/PF 4 MG/2 ML VIAL IVP PRN (12:00)
[2025-11-06] MEDS ORDERED: Z GUARD REMEDY 4 OZ OINT TP PRN (12:00)
[2025-11-06] MEDS ORDERED: MAG HYDROX/AL HYDROX/SIMETH 30 ML UDC PO PRN (12:00)
[2025-11-06 16:00] VITALS: BP 149/67; TEMP 97.9; O2SAT 96
[2025-11-06] MEDS: PROPRANOLOL HCL 40 MG TABLET PO SCH (17:00)
[2025-11-06] MEDS ORDERED: ONDANSETRON 4 MG TAB.RAPDIS PO PRN (17:00)
[2025-11-06] MEDS ORDERED: SODIUM BICARBONATE 325 MG TABLET PO SCH (17:00)
[2025-11-06] MEDS ORDERED: ACETAMINOPHEN 325 MG TABLET PO PRN (17:00)
[2025-11-06] MEDS ORDERED: METHOCARBAMOL (500MG) 500 MG TABLET PO PRN (17:00)
[2025-11-06] MEDS ORDERED: HYDROCODONE/APAP 10/325MG TABLET PO PRN (17:00)
[2025-11-06] MEDS ORDERED: Medication Not On Formulary EA (Ipratropium/Albuterol Sulfate (Duoneb 2.5-0.5 Mg/3 Ml So IH PRN (17:00)
[2025-11-06] MEDS ORDERED: LOPERAMIDE HCL (2 MG CAP) 2 MG CAPSULE PO PRN (17:00)
[2025-11-06] MEDS: APIXABAN 2.5 MG TABLET PO SCH (17:17)
[2025-11-06] MEDS: FUROSEMIDE 40 MG TABLET PO SCH (17:18)
[2025-11-06] MEDS: ACIDOPHILUS/BULGARICUS 1 EACH TAB.CHEW PO SCH (17:18)
[2025-11-06] MEDS: SODIUM BICARBONATE 650 MG TABLET PO SCH (17:18)
[2025-11-06] MEDS: CALCIUM ACETATE 667 MG CAP/TAB PO SCH (17:19)
[2025-11-06] MEDS: PROSOURCE / PROSTAT (PYXIS) 30 ML UDC PO SCH (17:20)
[2025-11-06] MEDS: PANTOPRAZOLE 40 MG TABLET.DR PO SCH (17:51)
[2025-11-06] MEDS: SEVELAMER CARBONATE 800 MG TABLET PO SCH (17:51)
[2025-11-06 20:00] VITALS: BP 140/64; TEMP 97.9; O2SAT 100
[2025-11-06] MEDS ORDERED: GEMFIBROZIL 600 MG TABLET PO SCH (21:00)
[2025-11-06] MEDS: CHOLESTYRAMINE/ASPARTAME 4 G/PKT PACKET PO SCH (21:06)
[2025-11-06] MEDS: ATORVASTATIN 10 MG TABLET PO SCH (21:06)
[2025-11-06] MEDS: DOXYCYCLINE 100 MG in IV D5W 100 ML IV SCH (21:09)
[2025-11-07] VITALS (8 sets, daily range): BP systolic 136–161; BP diastolic 62–75; TEMP 97.3–98.2; O2SAT 98–100
[2025-11-07] MEDS ORDERED: GUAIFENESIN/D-METHORPHAN HB 5 ML UDC PO PRN (04:30)
[2025-11-07 06:27] LABS: PLATELET COUNT (AUTO) 262 K/uL (150-450); RED BLOOD CELL COUNT(AUTO) 3.16 MIL/uL (4.5-6.0); RED CELL DISTRIBUTION WIDTH 20.9 % (11.5-15.0); WHITE BLOOD COUNT (AUTO) 7.6 K/uL (4.3-11.0)
[2025-11-07 06:35] LABS: CALCIUM, SERUM 8.1 mg/dL (8.5-10.1); CREATININE 5.1 mg/dL (0.6-1.3); PHOSPHORUS 4.4 mg/dL (2.5-4.9); SODIUM SERUM 138.0 mmol/L (136-145); UREA NITROGEN, BLOOD 42.0 mg/dL (7-18)
[2025-11-07] MEDS ORDERED: PANTOPRAZOLE 40 MG TABLET.DR PO SCH (07:30)
[2025-11-07] MEDS: SERTRALINE HCL 50 MG TABLET PO SCH (08:12)
[2025-11-07] MEDS: VIT B CMPLX 3/FA/VIT C/BIOTIN 1 TAB TABLET PO SCH (08:12)
[2025-11-07] MEDS: CEFTRIAXONE 1 G in IV D5W 50 ML IV SCH (08:16)
[2025-11-07] MEDS: NEPRO VAN 237 ML CAN PO SCH (09:33)
[2025-11-07] MEDS: POTASSIUM CHLORIDE 20 MEQ TAB.PRT.SR PO ONE (12:22)
[2025-11-07 12:35] LABS: OCCULT BLOOD STOOL NEGATIVE (NEGATIVE)
[2025-11-07] MEDS: PROSOURCE / PROSTAT (PYXIS) 30 ML UDC PO SCH (18:06)
[2025-11-07] MEDS: ALBUTEROL FS 2.5 MG/0.5 ML VIAL.NEB NEB PRN (18:32)
[2025-11-07] MEDS: IPRATROPIUM NEB FS 0.5 MG/2.5 ML AMPUL.NEB NEB PRN (18:32)
[2025-11-08] VITALS (7 sets, daily range): BP systolic 124–168; BP diastolic 63–69; TEMP 97.1–98.6; O2SAT 96–100
[2025-11-08 06:24] LABS: PLATELET COUNT (AUTO) 285 K/uL (150-450); RED BLOOD CELL COUNT(AUTO) 3.56 MIL/uL (4.5-6.0); RED CELL DISTRIBUTION WIDTH 21.8 % (11.5-15.0); WHITE BLOOD COUNT (AUTO) 8.9 K/uL (4.3-11.0)
[2025-11-08 06:42] LABS: ASPARTATE AMINOTRANSFERASE 6 U/L (15-37); CALCIUM, SERUM 8.0 mg/dL (8.5-10.1); CREATININE 6.7 mg/dL (0.6-1.3); PHOSPHORUS 6.4 mg/dL (2.5-4.9); SODIUM SERUM 135 mmol/L (136-145); TOTAL PROTEIN, SERUM 6.7 g/dL (6.4-8.2); UREA NITROGEN, BLOOD 73 mg/dL (7-18)
[2025-11-08 19:45] LABS: ABG BASE EXCESS 2.6 mmol/L (-2.0-3.0); ABG OXYGEN SATURATION 96.7 % (94.0-98.0); ABG PCO2 32.8 mmHg (35.0-48.0); ABG PH 7.507 (7.350-7.450); ABG PO2 89.1 mmHg (83.0-108.0); ABG TOTAL HEMOGLOBIN 11.0 G/dL (13.5-17.5); FRACTIONATED INSPIRED OXYGEN 3.0 %; SITE, ABG RIGHT BRACHIAL
[2025-11-09] VITALS: BP 132/70; TEMP 98.2; O2SAT 98
[2025-11-09 04:00] VITALS: BP 144/61; TEMP 97.6; O2SAT 98
[2025-11-09 06:23] LABS: CALCIUM, SERUM 8.6 mg/dL (8.5-10.1); CREATININE 5.0 mg/dL (0.6-1.3); PHOSPHORUS 5.9 mg/dL (2.5-4.9); SODIUM SERUM 140.0 mmol/L (136-145); UREA NITROGEN, BLOOD 50.0 mg/dL (7-18)
[2025-11-09 06:25] LABS: PLATELET COUNT (AUTO) 261 K/uL (150-450); RED BLOOD CELL COUNT(AUTO) 3.54 MIL/uL (4.5-6.0); RED CELL DISTRIBUTION WIDTH 21.8 % (11.5-15.0); WHITE BLOOD COUNT (AUTO) 9.9 K/uL (4.3-11.0)
[2025-11-09 08:00] VITALS: BP 159/64; TEMP 97.3; O2SAT 98
[2025-11-09 12:00] VITALS: BP 155/68; TEMP 97.7; O2SAT 98
[2025-11-09 16:00] VITALS: BP 141/63; TEMP 98.2; O2SAT 95
[2025-11-09 20:00] VITALS: BP 141/77; TEMP 97.7; O2SAT 95
[2025-11-10 04:00] VITALS: BP 145/79; TEMP 97.8; O2SAT 95
[2025-11-10 07:58] VITALS: BP 151/94; TEMP 98.1; O2SAT 94
[2025-11-10 08:04] VITALS: BP 151/94; TEMP 98.1; O2SAT 94
[2025-11-10] MEDS ORDERED: ALBUMIN 25% 25 GM in PREMIX 1 EA IV PRN (10:00)
[2025-11-10 15:55] VITALS: BP 152/69; TEMP 98.2; O2SAT 97
[2025-11-10 16:13] VITALS: BP 152/69; TEMP 98.2; O2SAT 97
[2025-11-10] MEDS: ACETAMINOPHEN 325 MG TABLET PO PRN (16:34)
[2025-11-10 17:23] LABS: PLATELET COUNT (AUTO) 290 K/uL (150-450); RED BLOOD CELL COUNT(AUTO) 3.71 MIL/uL (4.5-6.0); RED CELL DISTRIBUTION WIDTH 21.7 % (11.5-15.0); WHITE BLOOD COUNT (AUTO) 8.9 K/uL (4.3-11.0)
[2025-11-10 17:43] LABS: CALCIUM, SERUM 8.7 mg/dL (8.5-10.1); CREATININE 0.5 mg/dL (0.6-1.3); SODIUM SERUM 142.0 mmol/L (136-145); UREA NITROGEN, BLOOD 0.0 mg/dL (7-18)
[2025-11-10 17:50] LABS: PHOSPHORUS 0.5 mg/dL (2.5-4.9)
[2025-11-10 18:28] LABS: CALCIUM, SERUM 8.8 mg/dL (8.5-10.1); CREATININE 3.7 mg/dL (0.6-1.3); SODIUM SERUM 136.0 mmol/L (136-145); UREA NITROGEN, BLOOD 30.0 mg/dL (7-18)
[2025-11-10 20:00] VITALS: BP 104/68; TEMP 98; O2SAT 96
[2025-11-11 04:00] VITALS: BP 150/62; TEMP 98.3; O2SAT 95
[2025-11-11 07:13] LABS: PLATELET COUNT (AUTO) 251 K/uL (150-450); RED BLOOD CELL COUNT(AUTO) 3.44 MIL/uL (4.5-6.0); RED CELL DISTRIBUTION WIDTH 21.5 % (11.5-15.0); WHITE BLOOD COUNT (AUTO) 9.0 K/uL (4.3-11.0)
[2025-11-11 07:33] LABS: CALCIUM, SERUM 8.2 mg/dL (8.5-10.1); CREATININE 5.1 mg/dL (0.6-1.3); SODIUM SERUM 137.0 mmol/L (136-145); UREA NITROGEN, BLOOD 45.0 mg/dL (7-18)
[2025-11-11 08:00] VITALS: BP 153/65; TEMP 97.7; O2SAT 96
[2025-11-11] MEDS: DOXYCYCLINE HYCLATE (100 MG) 100 MG TABLET PO SCH (08:25)
[2025-11-11] MEDS: POTASSIUM CHLORIDE 20 MEQ TAB.PRT.SR PO SCH (10:19)
[2025-11-11 16:00] VITALS: BP 145/70; TEMP 97.5; O2SAT 94
[2025-11-11 20:00] VITALS: BP 151/62; TEMP 97.5; O2SAT 96
[2025-11-12 04:00] VITALS: BP 160/66; TEMP 98.1; O2SAT 96
[2025-11-12 06:22] LABS: PLATELET COUNT (AUTO) 257 K/uL (150-450); RED BLOOD CELL COUNT(AUTO) 3.42 MIL/uL (4.5-6.0); RED CELL DISTRIBUTION WIDTH 21.7 % (11.5-15.0); WHITE BLOOD COUNT (AUTO) 9.5 K/uL (4.3-11.0)
[2025-11-12 06:25] LABS: CALCIUM, SERUM 8.5 mg/dL (8.5-10.1); CREATININE 7.3 mg/dL (0.6-1.3); SODIUM SERUM 138.0 mmol/L (136-145); UREA NITROGEN, BLOOD 71.0 mg/dL (7-18)
[2025-11-12 08:15] VITALS: BP 170/71; TEMP 98.6; O2SAT 98
[2025-11-12 10:59] VITALS: TEMP 98.6
[2025-11-12] MEDS ORDERED: Prosource PO (16:11)
[2025-11-12] MEDS ORDERED: SODI650T PO (16:11)
[2025-11-12] MEDS ORDERED: ALBU2.5V13 NEB (16:11)
[2025-11-12] MEDS ORDERED: IPRA0.2S9 NEB (16:11)
[2025-11-12 17:29] VITALS: BP 156/69
== END 2025-11-12 18:22 | disposition home or self-care (01) | DRG 177 ==
LOC: ER 08:24 → MEDSG1 12:12 → TELE1 13:14 → MEDSG1 11-08 15:58
PROVIDERS: ADMIT Student in an Organized Health Care Education/Training Program; ATTEND Nurse Practitioner Acute Care
PROC: 5A1D70Z Performance of Urinary Filtration, Intermittent, Less than 6 Hours Per Day (ICD-10-PCS; principal; 2025-11-06)
DX: J15.69 Pneumonia due to other Gram-negative bacteria (principal); E43 Unspecified severe protein-calorie malnutrition; I50.21 Acute systolic (congestive) heart failure; J96.01 Acute respiratory failure with hypoxia; N18.6 End stage renal disease; I13.2 Hypertensive heart and chronic kidney disease with heart failure and with stage 5 chronic kidney disease, or end stage renal disease; R64 Cachexia; Z94.1 Heart transplant status; J44.0 Chronic obstructive pulmonary disease with (acute) lower respiratory infection; Z99.2 Dependence on renal dialysis; J15.9 Unspecified bacterial pneumonia; Z79.01 Long term (current) use of anticoagulants; E03.9 Hypothyroidism, unspecified; F32.A Depression, unspecified; E11.22 Type 2 diabetes mellitus with diabetic chronic kidney disease; F10.21 Alcohol dependence, in remission; D63.1 Anemia in chronic kidney disease; I08.0 Rheumatic disorders of both mitral and aortic valves; Q61.3 Polycystic kidney, unspecified; J44.1 Chronic obstructive pulmonary disease with (acute) exacerbation; Z68.1 Body mass index [BMI] 19.9 or less, adult; E88.09 Other disorders of plasma-protein metabolism, not elsewhere classified; E78.5 Hyperlipidemia, unspecified; E87.6 Hypokalemia; F41.9 Anxiety disorder, unspecified; Z20.822 Contact with and (suspected) exposure to COVID-19; Z79.60 Long term (current) use of unspecified immunomodulators and immunosuppressants; K40.90 Unilateral inguinal hernia, without obstruction or gangrene, not specified as recurrent; D72.829 Elevated white blood cell count, unspecified; E83.89 Other disorders of mineral metabolism; Z79.69 Long term (current) use of other immunomodulators and immunosuppressants
CPT/HCPCS: 36415; 36600; 71045-TC; 71250-TC; 80048-TC; 80053-TC; 82272-TC; 82803-TC; 83605-TC; 83735-TC; 84100-TC; 84484-TC; 85025-TC; 87040-TC; 90935-TC; 92526; 92611; 93307-TC; 97112-TC; 97116-TC; 97530-TC; A4216; A4223; G0378; J0696; J2919; J3475; J3490; J7030; J7040; J7050; J7060; J7512; P9047